=== PATIENT | female | born 1935 | race Caucasian/White ===

== ENCOUNTER → 2016-08-27 | Outpatient (CLI) | payer MEDICARE ==
--- NOTE | 2016-08-27 15:43 | US ---
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 EXAM MEASUREMENTS: Right Kidney: 10.3 x 4.9 x 4.9 cm Left Kidney: 10.0 x 4.3 x 5.9 cm Right Kidney: wnl Left Kidney: wnl Bladder: wnl Bilateral Jets seen: no There is no evidence for hydronephrosis at this point in time. No nephrolithiasis is seen. No jacqui s are identified. The urinary bladder is anechoic. Bilateral ureteral jets are seen. Cortical medullary differentiation is maintained. There may be a duplex collecting system on the righ t. IMPRESSION: No significant abnormalities evident.
== END | disposition home or self-care (01) ==
LOC: RADUSWWP 14:52
PROVIDERS: ATTEND Family Medicine
DX: N18.3 Chronic kidney disease, stage 3 (moderate) (principal); N28.9 Disorder of kidney and ureter, unspecified
CPT/HCPCS: 76770

== ENCOUNTER → 2016-12-11 | Outpatient (CLI) | payer MEDICARE ==
--- NOTE | 2016-12-11 16:16 | XR ---
EXAMINATION TYPE: XR abdomen 1V, 2 VIEWS DATE OF EXAM ORDERED: 12/11/2016 HISTORY: R10.9 abd pain. COMPARISON: Previous study dated 06/14/2016. FINDINGS: There has been a midline sternotomy. There is a large stool load. There is no evidence of bowel obstruction. There is no evidence of free air. There are phleboliths in the pelvis. There is a levoscoliosis in the lumbar region. There is ext ensive spondylosis deformans. IMPRESSION: 1. NO ACUTE INTRA-ABDOMINAL ABNORMALITY. 2. CONSTIPATION. 3. MODERATELY SEVERE DEGENERATIVE CHANGE WITHIN THE SPINE.
== END | disposition home or self-care (01) ==
LOC: RADXRMAIN 15:55
PROVIDERS: ATTEND Family Medicine
DX: K59.00 Constipation, unspecified (principal)
CPT/HCPCS: 74000

== ENCOUNTER → 2016-12-13 | Outpatient (CLI) | payer MEDICARE ==
--- NOTE | 2016-12-14 07:08 | XR ---
EXAMINATION TYPE: XR knee complete RT DATE OF EXAM: 12/13/2016 CLINICAL HISTORY: pain TECHNIQUE: Three views of the right knee are obtained. COMPARISON: None. FINDINGS: There is no acute fracture/dislocation. The tri-compartment joint spaces appear within no rmal limits. The overlying soft tissue appears unremarkable. IMPRESSION: There is no acute fracture or dislocation. ICD 10 NO FRACTURE, INITIAL EVALUATION
== END ==
LOC: RADXRMAIN 14:23
PROVIDERS: ATTEND Family Medicine
DX: M17.11 Unilateral primary osteoarthritis, right knee (principal)

== ENCOUNTER 2017-04-24 16:31 | Inpatient (IN) | payer MEDICARE ==
[2017-04-24] MEDS ORDERED: ONDANSETRON 4 MG/2 ML VIAL IVP STA (18:21)
[2017-04-24] MEDS ORDERED: RX INFO: IV CONTRAST WAS GIVEN 1 EACH MISC MISCELLANE PRN (18:21)
[2017-04-24] MEDS ORDERED: HYDROmorphone 1 MG/ML 1 ML SYRINGE IVP STA (18:21)
[2017-04-24] MEDS ORDERED: SODIUM CHLORIDE 0.9% 2,000 ML IV ONE (18:22)
[2017-04-24] MEDS ORDERED: ACETAMINOPHEN TAB 500 MG TAB PO STA (18:22)
--- NOTE | 2017-04-24 18:25 | ED ---
Abdominal Pain HPI <PaulJeramie - Last Filed: 04/24/17 20:42> - General Source: patient, family, RN notes reviewed, old records reviewed Mode of arrival: wheelchair Limitations: no limitations <Debra Campbellily - Last Filed: 04/24/17 23:13> - General Chief Complaint: Abdominal Pain Stated Complaint: Abd Pain Time Seen by Provider: 04/24/17 18:10 - History of Present Illness Initial Comments: Patient is an 82-year-old female presents emergency Department chief complaint of increased left lower quadrant abdominal pain. She reports that she's having a bout of her diverticulitis flare. She has her primary care provider stay was started on Cipro and Zofran. She reports that she has not been able to hold her medication down. She reports she is just feeling. All the pain is getting worse. She states that she feels very chilled and has a fever. She states that she's had diverticulosis diagnosis many times in the past year. Denies any previous history of abscesses. Surgical history includes lumpectomy, cholecystectomy. She recently had cataract removal surgery. (Tasneem Campbell) - Related Data Home Medications Medication Instructions Recorded Confirmed Donepezil [Aricept] 10 mg PO HS 06/14/16 04/24/17 Gabapentin 600 mg PO QID 06/14/16 04/24/17 Lisinopril [Prinivil] 10 mg PO QAM 06/14/16 04/24/17 Simvastatin [Zocor] 20 mg PO HS 06/14/16 04/24/17 ALPRAZolam [Xanax] 0.5 mg PO BID 04/24/17 04/24/17 Bromfenac Sodium [Prolensa Ophth 1 drop BOTH EYES DAILY 04/24/17 04/24/17 Soln] Ciprofloxacin HCl [Cipro] 500 mg PO BID 04/24/17 04/24/17 Diclofenac 0.1% Ophth Soln 1 drops RIGHT EYE QID 04/24/17 04/24/17 [Voltaren 0.1% Ophth Soln] Dicyclomine [Bentyl] 10 mg PO QID 04/24/17 04/24/17 Ondansetron Odt [Zofran Odt] 4 mg PO Q12HR PRN 04/24/17 04/24/17 Simethicone [Gas-X] 125 mg PO TID PRN 04/24/17 04/24/17 Tobramycin 0.3% Ophth Soln [Tobrex 1 drop BOTH EYES HS 04/24/17 04/24/17 0.3% Ophth Soln] amLODIPine BESYLATE [Norvasc] 10 mg PO DAILY 04/24/17 04/24/17 metFORMIN HCL [Glucophage] 500 mg PO DAILY 04/24/17 04/24/17 Allergies Allergy/AdvReac Type Severity Reaction Status Date / Time morphine Allergy Itching Verified 04/24/17 18:55 Sulfa (Sulfonamide Allergy Rash/Hives Verified 04/24/17 18:55 Antibiotics) Review of Systems ROS Other: All systems not noted in ROS Statement are negative. <Jeramie Miller - Last Filed: 04/24/17 20:42> ROS Other: All systems not noted in ROS Statement are negative. <Tasneem Campbell - Last Filed: 04/24/17 23:13> ROS Statement: Those systems with pertinent positive or pertinent negative responses have been documented in the HPI. Past Medical History Past Medical History: Hypertension Additional Past Medical History / Comment(s): diverticulitis History of Any Multi-Drug Resistant Organisms: None Reported Past Surgical History: Cholecystectomy Additional Past Surgical History / Comment(s): lumpectomy Past Psychological History: No Psychological Hx Reported Smoking Status: Former smoker Past Alcohol Use History: None Reported Past Drug Use History: None Reported <Tasneem Campbell - Last Filed: 04/24/17 23:13> General Exam <Jeramie Miller - Last Filed: 04/24/17 20:42> Limitations: no limitations General appearance: alert, in no apparent distress Head exam: Present: atraumatic, normocephalic, normal inspection Eye exam: Present: normal appearance, PERRL, EOMI. Absent: scleral icterus, conjunctival injection, periorbital swelling ENT exam: Present: normal exam, mucous membranes moist Neck exam: Present: normal inspection. Absent: tenderness, meningismus, lymphadenopathy Respiratory exam: Present: normal lung sounds bilaterally. Absent: respiratory distress, wheezes, rales, rhonchi, stridor Cardiovascular Exam: Present: regular rate, normal rhythm, normal heart sounds. Absent: systolic murmur, diastolic murmur, rubs, gallop, clicks GI/Abdominal exam: Present: soft, tenderness (Significant left lower quadrant tenderness.), normal bowel sounds. Absent: distended, guarding, rebound, rigid Extremities exam: Present: normal inspection, full ROM, normal capillary refill. Absent: tenderness, pedal edema, joint swelling, calf tenderness Back exam: Present: normal inspection Neurological exam: Present: alert, oriented X3, CN II-XII intact <Tasneem Campbell - Last Filed: 04/24/17 23:13> - General Exam Comments Initial Comments: This is an 82-year-old female. She does appear to be in some discomfort. ( Tasneem Campbell) Course <Jeramie Miller - Last Filed: 04/24/17 20:42> <Tasneem Campbell - Last Filed: 04/24/17 23:13> Vital Signs 04/24/17 04/24/17 04/24/17 16:42 18:49 20:20 Temperature 100.2 F H 98.2 F Pulse Rate 94 95 77 Respiratory 20 18 16 Rate Blood Pressure 152/65 169/77 140/63 O2 Sat by Pulse 99 94 L 94 L Oximetry 04/24/17 21:04 Temperature 97.5 F L Pulse Rate 85 Respiratory 20 Rate Blood Pressure 144/65 O2 Sat by Pulse 95 Oximetry - Reevaluation(s) Reevaluation #1: 04/24/17 20:40 Asians meet sepsis criteria with elevated white blood cell count fever, and location of infection with diverticulitis. This is completed at 1900. 04/24/17 20:40 Patient started on Levaquin. (Tasneem Campbell) Medical Decision Making - Lab Data Result diagrams: 04/24/17 18:35 04/24/17 18:35 <Jeramie Miller - Last Filed: 04/24/17 20:42> - Lab Data Result diagrams: 04/24/17 18:35 04/24/17 18:35 - Radiology Data Radiology results: report reviewed <Tasneem Campbell - Last Filed: 04/24/17 23:13> - Medical Decision Making Patient reevaluated by myself, Dr. Miller. Patient resting comfortably in bed. chart and results reviewed. Patient and family updated on results and plan. Case was discussed in detail with Dr. London, who will admit his patient. ( Jeramie Miller) 82-year-old female presents emergency Department chief complaint left lower quadrant pain and fever, she was started on Cipro for diverticulitis by her primary. She reports she's had worsening nausea and vomiting. She's not been able to hold down her medication. Patient has the emergency department with a low-grade fever 100.2. Patient is given IV fluids labwork obtained. Elevated white blood cell count of 18,000 with a left shift. Negative lactic acid. Blood cultures were obtained. CT on pelvis did show significant diverticulitis , no colonic abscess noted. Patient does meet sepsis criteria. Patient started on IV Levaquin and by mouth Flagyl. Patient will be admitted at this time. Discussed with Dr. Miller who will discuss with Dr. Osorio. (Tasneem Campbell) - Lab Data Lab Results 04/24/17 04/24/17 04/24/17 Range/Units 18:35 18:35 18:35 WBC 18.4 H (3.8-10.6) k/uL RBC 4.58 (3.80-5.40) m/uL Hgb 12.4 (11.4-16.0) gm/dL Hct 40.6 (34.0-46.0) % MCV 88.6 (80.0-100.0) fL MCH 27.1 (25.0-35.0) pg MCHC 30.6 L (31.0-37.0) g/dL RDW 16.5 H (11.5-15.5) % Plt Count 303 (150-450) k/uL Neutrophils % 84 % Lymphocytes % 8 % Monocytes % 7 % Eosinophils % 0 % Basophils % 0 % Neutrophils # 15.4 H (1.3-7.7) k/uL Lymphocytes # 1.5 (1.0-4.8) k/uL Monocytes # 1.2 H (0-1.0) k/uL Eosinophils # 0.0 (0-0.7) k/uL Basophils # 0.0 (0-0.2) k/uL Hypochromasia Slight Anisocytosis Slight Sodium 135 L (137-145) mmol/L Potassium 4.2 (3.5-5.1) mmol/L Chloride 101 (98-107) mmol/L Carbon Dioxide 24 (22-30) mmol/L Anion Gap 10 mmol/L BUN 13 (7-17) mg/dL Creatinine 0.70 (0.52-1.04) mg/dL Est GFR (MDRD) Af Amer >60 (>60 ml/min/1.73 sqM) Est GFR (MDRD) Non-Af >60 (>60 ml/min/1.73 sqM) Glucose 128 H (74-99) mg/dL Plasma Lactic Acid Hilario 0.8 (0.7-2.0) mmol/L Calcium 9.1 (8.4-10.2) mg/dL Total Bilirubin 0.4 (0.2-1.3) mg/dL AST 13 L (14-36) U/L ALT 30 (9-52) U/L Alkaline Phosphatase 73 (38-126) U/L Troponin I (0.000-0.034) ng/mL Total Protein 6.8 (6.3-8.2) g/dL Albumin 3.8 (3.5-5.0) g/dL Amylase 44 (30-110) U/L Lipase 41 (23-300) U/L Urine Color Urine Appearance (Clear) Urine pH (5.0-8.0) Ur Specific [place] (1.001-1.035) Urine Protein (Negative) Urine Glucose (UA) (Negative) Urine Ketones (Negative) Urine Blood (Negative) Urine Nitrite (Negative) Urine Bilirubin (Negative) Urine Urobilinogen (<2.0) mg/dL Ur Leukocyte Esterase (Negative) Urine RBC (0-5) /hpf Urine WBC (0-5) /hpf Ur Squamous Epith Cells (0-4) /hpf Urine Bacteria (None) /hpf Urine Mucus (None) /hpf 04/24/17 04/24/17 Range/Units 18:35 18:50 WBC (3.8-10.6) k/uL RBC (3.80-5.40) m/uL Hgb (11.4-16.0) gm/dL Hct (34.0-46.0) % MCV (80.0-100.0) fL MCH (25.0-35.0) pg MCHC (31.0-37.0) g/dL RDW (11.5-15.5) % Plt Count (150-450) k/uL Neutrophils % % Lymphocytes % % Monocytes % % Eosinophils % % Basophils % % Neutrophils # (1.3-7.7) k/uL Lymphocytes # (1.0-4.8) k/uL Monocytes # (0-1.0) k/uL Eosinophils # (0-0.7) k/uL Basophils # (0-0.2) k/uL Hypochromasia Anisocytosis Sodium (137-145) mmol/L Potassium (3.5-5.1) mmol/L Chloride (98-107) mmol/L Carbon Dioxide (22-30) mmol/L Anion Gap mmol/L BUN (7-17) mg/dL Creatinine (0.52-1.04) mg/dL Est GFR (MDRD) Af Amer (>60 ml/min/1.73 sqM) Est GFR (MDRD) Non-Af (>60 ml/min/1.73 sqM) Glucose (74-99) mg/dL Plasma Lactic Acid Hilario (0.7-2.0) mmol/L Calcium (8.4-10.2) mg/dL Total Bilirubin (0.2-1.3) mg/dL AST (14-36) U/L ALT (9-52) U/L Alkaline Phosphatase (38-126) U/L Troponin I <0.012 (0.000-0.034) ng/mL Total Protein (6.3-8.2) g/dL Albumin (3.5-5.0) g/dL Amylase (30-110) U/L Lipase (23-300) U/L Urine Color Yellow Urine Appearance Clear (Clear) Urine pH 6.0 (5.0-8.0) Ur Specific [place] 1.020 (1.001-1.035) Urine Protein 1+ H (Negative) Urine Glucose (UA) Trace H (Negative) Urine Ketones 2+ H (Negative) Urine Blood Small H (Negative) Urine Nitrite Negative (Negative) Urine Bilirubin Negative (Negative) Urine Urobilinogen 2.0 (<2.0) mg/dL Ur Leukocyte Esterase Small H (Negative) Urine RBC 5 (0-5) /hpf Urine WBC 4 (0-5) /hpf Ur Squamous Epith Cells 4 (0-4) /hpf Urine Bacteria Rare H (None) /hpf Urine Mucus Rare H (None) /hpf 04/24/17 18:26 EKG shows normal sinus rhythm. Minimal voltage criteria for LVH. Nonspecific T -wave abnormality. Ventricular rate 95 bpm. [place] interval 9180 ms. QRS duration 74 ms. QT QTc is 360/397 ms. No evidence of ST elevation. (Tasneem Campbell) - Radiology Data CT shows evidence of diverticulitis, no focal abscess noted. Evidence of a hiatal hernia as well. (Tasneem Campbell) Disposition <Jeramie Miller - Last Filed: 04/24/17 20:42> Time of Disposition: 20:47 <Tasneem Campbell - Last Filed: 04/24/17 23:13> Clinical Impression: Sepsis, Diverticulitis Disposition: ADMITTED IP TO THIS HOSP Condition: Stable
[2017-04-24 18:47] LABS: Anisocytosis Slight; Basophils % (A) 0 %; CH 27.5; CHCM 31.1; Eosinophils % (A) 0 %; HCT 40.6 % (34.0-46.0); HDW 2.67; HGB 12.4 gm/dL (11.4-16.0); Hypochromasia Slight; Luc % (Auto) 1; Lymphocytes # (A) 1.5 k/uL (1.0-4.8); Lymphocytes % (A) 8 %; MCH 27.1 pg (25.0-35.0); MCHC 30.6 g/dL (31.0-37.0); MCV 88.6 fL (80.0-100.0); Monocytes # (A) 1.2 k/uL (0-1.0); Monocytes % (A) 7 %; Neutrophils # (A) 15.4 k/uL (1.3-7.7); Neutrophils % (A) 84 %; RBC 4.58 m/uL (3.80-5.40); RDW 16.5 % (11.5-15.5); WBC 18.4 k/uL (3.8-10.6); WBC (Perox) 18.26
[2017-04-24] MEDS ORDERED: LEVOFLOXACIN 750MG-D5W PMX 750 MG in DEXTROSE/WATER 1 150ML.BAG IVPB STA (18:56)
[2017-04-24 18:57] LABS: Appearance,Urine Clear (Clear); Bacteria,Urine Rare /hpf; Bilirubin,Urine Negative (Negative); Glucose,Urine (UA) Trace (Negative); Ketones,Urine 2+ (Negative); Leukocyte Esterase,Urine Small (Negative); Mucus,Urine Rare /hpf; Nitrite,Urine Negative (Negative); Particle Count 4159; Protein,Urine 1+ (Negative); RBC,Urine 5 /hpf (0-5); Squamous Epithelial Cell,Urine 4 /hpf (0-4); UA Billing (MACRO vs. MICRO) MICRO; WBC,Urine 4 /hpf (0-5)
[2017-04-24 19:00] LABS: ALT 30 U/L (9-52); AST 13 U/L (14-36); Alkaline Phosphatase 73 U/L (38-126); Amylase 44 U/L (30-110); Anion Gap 10 mmol/L; Blood Urea Nitrogen 13 mg/dL (7-17); Calcium 9.1 mg/dL (8.4-10.2); Carbon Dioxide 24 mmol/L (22-30); Chloride 101 mmol/L (98-107); Glucose 128 mg/dL (74-99); Non-African American GFR(MDRD) >60 (>60 ml/min/1.73 sqM); Potassium 4.2 mmol/L (3.5-5.1); Sodium 135 mmol/L (137-145); Total Bilirubin 0.4 mg/dL (0.2-1.3); Total Protein 6.8 g/dL (6.3-8.2)
--- NOTE | 2017-04-24 20:18 | CT ---
EXAMINATION TYPE: CT abdomen pelvis w con DATE OF EXAM: 04/24/2017 COMPARISON: NONE HISTORY: LLQ pain with nausea and fever. CT DLP: 1475.2 mGycm Automated exposure control for dose reduction was used. TECHNIQUE: Helical acquisition of images was performed from the lung bases through the pelvis. CONTRAST: Performed without Oral Contrast and with IV Contrast, patient injected with 100 mL of Omnipaque 300. FINDINGS: Lung bases are clear of consolidation. There is no pleural effusion. There is metal hernia. There are clips from cholecystectomy. Bile ducts are not dilated. Spleen and pancreas appear normal. There is no adrenal mass. Kidneys show satisfactory contrast opacification. There is no hydronephrosi s. There is no retroperitoneal adenopathy. There is umbilical hernia that contains fat. There is no ascites. There are numerous diverticula in the sigmoid colon. There is mild fat stranding around the lower descending colon. I see no abscess. There are numerous diverticula in the transvers e colon in the left colon. Appendix is not seen. There is no sign of appendicitis. There are spondylo tic changes throughout the lumbar spine. There is moderate spinal stenosis at L3-4 and L4-5. IMPRESSION: INFLAMMATORY CHANGES AROUND THE LOWER DESCENDING COLON CONSISTENT WITH MILD DIVERTICULITIS. EXTENSIVE COLONIC DIVERTICULOSIS. SPINAL STENOSIS IS PRESENT AT L3-4 L4-5. HIATAL HERNIA.
[2017-04-24] MEDS ORDERED: HYDROmorphone 1 MG/ML 1 ML SYRINGE IVP PRN (20:47)
[2017-04-24] MEDS ORDERED: BISACODYL 5 MG TABLET.DR PO PRN (20:47)
[2017-04-24] MEDS ORDERED: NALOXONE 0.4 MG/ML 1 ML VIAL IV PRN (20:47)
[2017-04-24] MEDS ORDERED: IBUPROFEN 400 MG TAB PO PRN (20:47)
[2017-04-24] MEDS ORDERED: ACETAMINOPHEN TAB 325 MG TAB PO PRN (20:47)
[2017-04-24] MEDS ORDERED: ALPRAZolam 0.25 MG TAB PO PRN (20:49)
[2017-04-24] MEDS ORDERED: ONDANSETRON ODT 4 MG TAB PO PRN (20:49)
[2017-04-24] MEDS ORDERED: SIMETHICONE 80 MG CHEWABLE PO PRN (20:49)
[2017-04-24] MEDS ORDERED: metroNIDAZOLE 500 MG TAB PO STA (20:50)
[2017-04-24] MEDS ORDERED: PREGABALIN 50 MG CAP PO SCH (21:00)
[2017-04-24] MEDS ORDERED: CIPROFLOXACIN HCL 500 MG TAB PO SCH (21:00)
[2017-04-24] MEDS ORDERED: GABAPENTIN 1200 MG PO SCH (21:00)
[2017-04-24] MEDS: TOBRAMYCIN 0.3% OPHTH DROPS 5 ML BTL BOTH EYES SCH (21:43)
[2017-04-24] MEDS: DICLOFENAC 0.1% OPHTH SOLN 2.5 ML BTL RIGHT EYE SCH (21:43)
[2017-04-24] MEDS: ATORVASTATIN 10 MG TAB PO SCH (21:43)
[2017-04-24] MEDS: DICYCLOMINE 10 MG CAP PO SCH (21:43)
[2017-04-24] MEDS: DONEPEZIL 10 MG TAB PO SCH (21:43)
[2017-04-24] MEDS: SODIUM CHLORIDE 0.9% 1,000 ML IV SCH (23:08)
[2017-04-24] MEDS: ONDANSETRON 4 MG/2 ML VIAL IVP PRN (23:52)
[2017-04-25] MEDS: SODIUM CHLORIDE 0.9% 1,000 ML IV SCH ×2 (05:37→14:45)
[2017-04-25] MEDS: ONDANSETRON 4 MG/2 ML VIAL IVP PRN ×3 (07:27→22:09)
[2017-04-25 07:51] LABS: Glucose,Whole Blood 128 mg/dL (75-99)
[2017-04-25] MEDS: DICLOFENAC 0.1% OPHTH SOLN 2.5 ML BTL RIGHT EYE SCH (08:33)
[2017-04-25] MEDS: ALPRAZolam 0.5 MG TAB PO SCH ×2 (08:33→21:57)
[2017-04-25] MEDS: LISINOPRIL 10 MG TAB PO SCH (08:33)
[2017-04-25] MEDS: PANTOPRAZOLE 40 MG/10 ML VIAL IV SCH (08:33)
[2017-04-25] MEDS: amLODIPine 10 MG TAB PO SCH (08:33)
[2017-04-25] MEDS: KETOROLAC 0.5% OPHTH DROPS 5 ML BTL BOTH EYES SCH ×4 (08:33→21:53)
[2017-04-25] MEDS: DICYCLOMINE 10 MG CAP PO SCH ×4 (08:33→21:54)
[2017-04-25 12:05] LABS: Glucose,Whole Blood 149 mg/dL (75-99)
[2017-04-25 17:05] LABS: Glucose,Whole Blood 108 mg/dL (75-99)
[2017-04-25] MEDS: HYDROmorphone 1 MG/ML 1 ML SYRINGE IVP PRN ×2 (18:53→22:15)
--- NOTE | 2017-04-25 19:54 | HP ---
HISTORY AND PHYSICAL CHIEF COMPLAINT: An 82-year-old white female who presents with increased left lower quadrant abdominal pain. CT scan of the abdomen was read in the emergency room, which showed diverticulitis and extensive diverticulosis. Surgical consult with Dr. Guzman is pending. She was in the hospital for this about a month or 2 ago. She was unable to keep any medicines or food down. She has progressive nausea and vomiting, failed outpatient treatment. SURGICAL HISTORY: She has had a lumpectomy, cholecystectomy,cataract surgery removal. HOME MEDICINES: Include: 1. Aricept for dementia. 2. Gabapentin for neuropathy. 3. Prinivil for hypertension 10 mg daily. 4. Zocor 20 mg daily for hypercholesterolemia. 5. Xanax 0.5 mg b.i.d. for anxiety. 6. Ciprofloxacin 500 mg p.o. b.i.d. which was started for possible bowel infection a few days before. 7. She has Prolensa 1 drop both eyes daily. 8. Voltaren ophthalmologic drops right eye q.i.d. 9. Bentyl 10 mg q.i.d. 10.Norvasc 10 mg daily. 11.Metformin 500 mg daily. ALLERGIES: TO MORPHINE AND SULFA. Fourteen-point review of systems except for mentioned in HPI is negative. PAST MEDICAL HISTORY: As mentioned above; diverticulitis, diverticulosis, hypertension, dyslipidemia, irritable bowel syndrome, diabetes mellitus, hypertension. SURGICAL HISTORY: Cholecystectomy, and lumpectomy as mentioned above. She is a former smoker. PHYSICAL EXAM: She is a white female who appears nauseated with an emesis bucket in her hand. BMI is over 40. HEENT: Normocephalic, atraumatic. Ophthalmologic: Pupils equal, round, react to light and accommodation. NECK: Supple. Normal bowel sounds. RESPIRATORY: Wheezes, rales, rhonchi or stridor were all negative. CARDIAC: Regular rate and rhythm. ABDOMEN: Tender to palpation, left lower quadrant. Mild guarding. Normal bowel sounds. Negative McBurney sign. EXTREMITIES: Normal to inspection. Full range of motion. BACK: Normal to inspection. NEUROLOGIC: Alert and oriented x3. T-max is 100.2, blood pressure is 140s to 160s over 60s to 70s. Respiratory rate 16 to 20, pulse is 97/95. CT scan was reviewed. ASSESSMENT: 1. Acute diverticulitis. 2. Leukocytosis secondary to diverticulitis. 3. Acute abdominal pain secondary to diverticulitis. 4. Minimal hyponatremia. 5. Suspect sepsis secondary to diverticulitis. She was started on Flagyl and IV Levaquin, which will continue with surgical and GI consultation. Monitor electrolytes. Amylase and lipase are negative for pancreatitis. EKG shows sinus rhythm, no ischemia. Continue current treatment. Please see further orders in the chart. MMODL / IJN: [id number] /
[2017-04-25 21:33] LABS: Glucose,Whole Blood 104 mg/dL (75-99)
[2017-04-25] MEDS: LEVOFLOXACIN 750MG-D5W PMX 750 MG in DEXTROSE/WATER 1 150ML.BAG IVPB SCH (21:51)
[2017-04-25] MEDS: GABAPENTIN 300 MG CAP PO SCH (21:52)
[2017-04-25] MEDS: TOBRAMYCIN 0.3% OPHTH DROPS 5 ML BTL BOTH EYES SCH (21:53)
[2017-04-25] MEDS: DONEPEZIL 10 MG TAB PO SCH (21:54)
[2017-04-25] MEDS: ATORVASTATIN 10 MG TAB PO SCH (21:54)
[2017-04-26] MEDS: SODIUM CHLORIDE 0.9% 1,000 ML IV SCH ×3 (01:31→16:36)
[2017-04-26 07:57] LABS: Glucose,Whole Blood 88 mg/dL (75-99)
[2017-04-26 08:32] LABS: Anisocytosis Slight; Basophils % (A) 0 %; CH 27.1; CHCM 30.2; Eosinophils # (A) 0.1 k/uL (0-0.7); Eosinophils % (A) 1 %; HCT 35.3 % (34.0-46.0); HDW 2.66; HGB 10.6 gm/dL (11.4-16.0); Hypochromasia Marked; Luc % (Auto) 2; Lymphocytes # (A) 1.7 k/uL (1.0-4.8); Lymphocytes % (A) 18 %; MCHC 29.9 g/dL (31.0-37.0); MCV 90.1 fL (80.0-100.0); Mean Platelet Volume 6.7; Monocytes # (A) 0.7 k/uL (0-1.0); Monocytes % (A) 7 %; Neutrophils # (A) 6.8 k/uL (1.3-7.7); Neutrophils % (A) 71 %; RBC 3.92 m/uL (3.80-5.40); RDW 16.4 % (11.5-15.5); WBC 9.5 k/uL (3.8-10.6); WBC (Perox) 10.09
[2017-04-26 08:44] LABS: ALT 30 U/L (9-52); AST 13 U/L (14-36); Alkaline Phosphatase 54 U/L (38-126); Anion Gap 7 mmol/L; Blood Urea Nitrogen 10 mg/dL (7-17); Calcium 8.4 mg/dL (8.4-10.2); Carbon Dioxide 23 mmol/L (22-30); Chloride 109 mmol/L (98-107); Glucose 91 mg/dL (74-99); Non-African American GFR(MDRD) >60 (>60 ml/min/1.73 sqM); Potassium 3.8 mmol/L (3.5-5.1); Sodium 139 mmol/L (137-145); Total Bilirubin <0.1 mg/dL (0.2-1.3); Total Protein 5.6 g/dL (6.3-8.2)
[2017-04-26] MEDS: ALPRAZolam 0.5 MG TAB PO SCH ×2 (09:11→21:23)
[2017-04-26] MEDS: GABAPENTIN 300 MG CAP PO SCH ×4 (09:11→21:19)
[2017-04-26] MEDS: amLODIPine 10 MG TAB PO SCH (09:12)
[2017-04-26] MEDS: DICYCLOMINE 10 MG CAP PO SCH ×4 (09:12→21:19)
[2017-04-26] MEDS: LISINOPRIL 10 MG TAB PO SCH (09:12)
[2017-04-26] MEDS: PANTOPRAZOLE 40 MG/10 ML VIAL IV SCH (09:12)
[2017-04-26] MEDS: KETOROLAC 0.5% OPHTH DROPS 5 ML BTL BOTH EYES SCH ×4 (09:12→21:20)
[2017-04-26] MEDS: DICLOFENAC 0.1% OPHTH SOLN 2.5 ML BTL BOTH EYES SCH (09:12)
[2017-04-26 12:31] LABS: Glucose,Whole Blood 101 mg/dL (75-99)
--- NOTE | 2017-04-26 12:59 | P.CONS ---
History of Present Illness - Reason for Consult Consult date: 04/26/17 diverticulitis Requesting physician: Chris London - History of Present Illness 82-year-old female with a history of colonic diverticulosis recurrent diverticulitis admitted with acute left lower quadrant abdominal pain 1 week. Patient was constipated prior to the onset of abdominal pain last week. She is now passing loose nonbloody bowel movements. Reports fever at home but no chills hematemesis hematochezia melena. Recent diverticulitis flareup in January 2017. Last colonoscopy to her memory several years ago unsure who performed but remembers diverticulosis however the exam was incomplete secondary to "twisted bowel, did not want to go any further for fear of perforating bowel". White count 18.4 presently 9.5. Hemoglobin 10.6. Afebrile. T-max 100.2. CT abdomen and pelvis reported inflammatory changes on the lower descending colon consistent with mild diverticulitis and extensive colonic diverticulosis without abscess or free air. Review of Systems Constitutional: Denies fever, chills, sweats, weight gain, or loss. HEENT: Negative for migraines, blurred vision or loss, earaches, drainage, tinnitus, oral mucosal lesions, dysphagia, or odynophagia. CARDIAC: Hypertension Negative for chest pain, arrhythmias, or palpitation. RESPIRATORY: Negative for shortness of breath, hemoptysis, cough, or sputum production. GI: See HPI for pertinent findings. : Negative for hematuria, urgency, frequency, polyuria, or dysuria. GYNc: Denies possibility of . Negative vaginal discharge. MUSCULOSKELETAL: Negative for muscle aches, swelling, arthritis, and arthralgias. NEUROLOGIC: Negative for stroke or TIA. ENDOCRINE: Negative for thyroid problems. SKIN: Negative for rash or itching. PSYCHIATRIC: Negative history for depression and anxiety All systems: negative (See HPI) Past Medical History Past Medical History: Hypertension Additional Past Medical History / Comment(s): diverticulitis History of Any Multi-Drug Resistant Organisms: None Reported Past Surgical History: Cholecystectomy Additional Past Surgical History / Comment(s): lumpectomy Past Anesthesia/Blood Transfusion Reactions: No Reported Reaction Past Psychological History: No Psychological Hx Reported Smoking Status: Former smoker Past Alcohol Use History: None Reported Past Drug Use History: None Reported - Past Family History Father Family Medical History: Congestive Heart Failure (CHF), COPD Medications and Allergies Home Medications Medication Instructions Recorded Confirmed Type Donepezil [Aricept] 10 mg PO HS 06/14/16 04/24/17 History Gabapentin 600 mg PO QID 06/14/16 04/24/17 History Lisinopril [Prinivil] 10 mg PO QAM 06/14/16 04/24/17 History Simvastatin [Zocor] 20 mg PO HS 06/14/16 04/24/17 History ALPRAZolam [Xanax] 0.5 mg PO BID 04/24/17 04/24/17 History Bromfenac Sodium [Prolensa Ophth 1 drop BOTH EYES DAILY 04/24/17 04/24/17 History Soln] Ciprofloxacin HCl [Cipro] 500 mg PO BID 04/24/17 04/24/17 History Diclofenac 0.1% Ophth Soln 1 drops RIGHT EYE QID 04/24/17 04/24/17 History [Voltaren 0.1% Ophth Soln] Dicyclomine [Bentyl] 10 mg PO QID 04/24/17 04/24/17 History Ondansetron Odt [Zofran Odt] 4 mg PO Q12HR PRN 04/24/17 04/24/17 History Simethicone [Gas-X] 125 mg PO TID PRN 04/24/17 04/24/17 History Tobramycin 0.3% Ophth Soln [Tobrex 1 drop BOTH EYES HS 04/24/17 04/24/17 History 0.3% Ophth Soln] amLODIPine BESYLATE [Norvasc] 10 mg PO DAILY 04/24/17 04/24/17 History metFORMIN HCL [Glucophage] 500 mg PO DAILY 04/24/17 04/24/17 History Allergies Allergy/AdvReac Type Severity Reaction Status Date / Time morphine Allergy Itching Verified 04/24/17 18:55 Sulfa (Sulfonamide Allergy Rash/Hives Verified 04/24/17 18:55 Antibiotics) Physical Exam Vitals: Vital Signs Temp Pulse Resp BP BP Pulse Ox 04/26/17 07:00 97.1 F L 78 20 152/70 96 04/25/17 23:55 98.3 F 70 20 118/62 94 L 04/25/17 14:47 98.6 F 88 16 138/71 95 Intake and Output 04/25/17 04/26/17 04/26/17 22:59 06:59 14:59 Intake Total 0 100 240 Balance 0 100 240 Intake: Oral 0 100 240 Other: Voiding Method Toilet Toilet Bedside Commode Bedside Commode # Voids 1 1 # Bowel Movements 0 0 General appearance: The patient is alert, oriented, in no acute distress. HET: Head is normocephalic and atraumatic. Pupils are equal and reactive. Oropharynx is clear without lesions. Neck: Supple without lymphadenopathy. Trachea midline. Heart: S1 S2. Regular rate and rhythm. Lungs: No crackles or wheezes are heard. Abdomen: Soft, mild left lower quadrant tenderness, nondistended with bowel sounds. No peritoneal signs. No palpable organomegaly or masses. Extremities: Normal skin color and turgor. No cyanosis, rash, ulceration, clubbing, or edema. Radial and pedal pulses are 2/4 bilaterally. Neurological: No focal deficits. Strength and sensation are grossly intact. Results CBC & Chem 7: 04/26/17 07:51 04/26/17 07:51 Labs: Abnormal Lab Results - Last 24 Hours (Table) 04/25/17 04/25/17 04/26/17 Range/Units 16:56 21:26 07:51 Hgb 10.6 L (11.4-16.0) gm/dL MCHC 29.9 L (31.0-37.0) g/dL RDW 16.4 H (11.5-15.5) % Chloride (98-107) mmol/L POC Glucose (mg/dL) 108 H 104 H (75-99) mg/dL Total Bilirubin (0.2-1.3) mg/dL AST (14-36) U/L Total Protein (6.3-8.2) g/dL Albumin (3.5-5.0) g/dL 04/26/17 04/26/17 Range/Units 07:51 11:48 Hgb (11.4-16.0) gm/dL MCHC (31.0-37.0) g/dL RDW (11.5-15.5) % Chloride 109 H (98-107) mmol/L POC Glucose (mg/dL) 101 H (75-99) mg/dL Total Bilirubin <0.1 L (0.2-1.3) mg/dL AST 13 L (14-36) U/L Total Protein 5.6 L (6.3-8.2) g/dL Albumin 2.9 L (3.5-5.0) g/dL Microbiology - Last 24 Hours (Table) 04/24/17 18:35 Blood Culture - Preliminary Blood No Growth after [address] scan - abdomen: report reviewed (Dr. Quintana) Assessment and Plan (1) Diverticulitis Narrative/Plan: Leukocytosis and reported fever secondary to descending colon diverticulitis. Cannot exclude superimposed infectious colitis. Current Visit: Yes Status: Acute Code(s): K57.92 - DVTRCLI OF INTEST, PART UNSP, W/O PERF OR ABSCESS W/O BLEED SNOMED Code(s): 841597433 (2) Diverticulosis of colon Narrative/Plan: Moderate to severe incomplete colonoscopy several years ago. Current Visit: Yes Status: Acute Code(s): K57.30 - DVRTCLOS OF LG INT W/O PERFORATION OR ABSCESS W/O BLEEDING SNOMED Code(s): 224203539 Plan: 1. Levaquin Flagyl. Clear liquid diet advance as tolerated. 2. Outpatient colonoscopy recommended in 3-4 weeks. 3. Will follow with you. 4. Avoid constipation. 5. Clostridium difficile testing rule out superimposed infectious colitis. Thank you for this kind referral and the opportunity to participate in the care of your patient. This consultation was discussed with Dr. Quintana. The impression and plan of care have been directed as dictated.
[2017-04-26 13:30] VITALS: BMI 33.1
--- NOTE | 2017-04-26 14:28 | P.GSCN ---
History of Present Illness Consult date: 04/26/17 Reason for Consult: Lower left quadrant abdominal pain History of present illness: 82-year-old female seen by surgical service at the request of the attending in a patient who developed left lower quadrant abdominal pain onset several weeks prior more symptomatic. CAT scan of the abdomen and pelvis obtained in the emergency room did show mild diverticulitis with extensive diverticulosis. Patient states it's been several years but she did have a colonoscopy done does not remember who did the colonoscopy or where was done states that she was told they could not complete the exam because the scope could not be passed through Patient states she has been having loose stools there's been no blood noted in the stool. Patient states at home she felt feverish but did not actually take her temperature. Patient stated that she has a history of diverticulitis the last flareup was in January 2017 temp in the emergency room was 100.2 the current temp is 97.1 the white count in the emergency room was 18.5 this morning white count 9 Review of Systems essentially unremarkable except as mentioned in the present illness Past Medical History Past Medical History: Hypertension Additional Past Medical History / Comment(s): diverticulitis History of Any Multi-Drug Resistant Organisms: None Reported Past Surgical History: Cholecystectomy Additional Past Surgical History / Comment(s): lumpectomy Past Anesthesia/Blood Transfusion Reactions: No Reported Reaction Past Psychological History: No Psychological Hx Reported Smoking Status: Former smoker Past Alcohol Use History: None Reported Past Drug Use History: None Reported - Past Family History Father Family Medical History: Congestive Heart Failure (CHF), COPD Medications and Allergies Home Medications Medication Instructions Recorded Confirmed Type Donepezil [Aricept] 10 mg PO HS 06/14/16 04/24/17 History Gabapentin 600 mg PO QID 06/14/16 04/24/17 History Lisinopril [Prinivil] 10 mg PO QAM 06/14/16 04/24/17 History Simvastatin [Zocor] 20 mg PO HS 06/14/16 04/24/17 History ALPRAZolam [Xanax] 0.5 mg PO BID 04/24/17 04/24/17 History Bromfenac Sodium [Prolensa Ophth 1 drop BOTH EYES DAILY 04/24/17 04/24/17 History Soln] Ciprofloxacin HCl [Cipro] 500 mg PO BID 04/24/17 04/24/17 History Diclofenac 0.1% Ophth Soln 1 drops RIGHT EYE QID 04/24/17 04/24/17 History [Voltaren 0.1% Ophth Soln] Dicyclomine [Bentyl] 10 mg PO QID 04/24/17 04/24/17 History Ondansetron Odt [Zofran Odt] 4 mg PO Q12HR PRN 04/24/17 04/24/17 History Simethicone [Gas-X] 125 mg PO TID PRN 04/24/17 04/24/17 History Tobramycin 0.3% Ophth Soln [Tobrex 1 drop BOTH EYES HS 04/24/17 04/24/17 History 0.3% Ophth Soln] amLODIPine BESYLATE [Norvasc] 10 mg PO DAILY 04/24/17 04/24/17 History metFORMIN HCL [Glucophage] 500 mg PO DAILY 04/24/17 04/24/17 History Allergies Allergy/AdvReac Type Severity Reaction Status Date / Time morphine Allergy Itching Verified 04/24/17 18:55 Sulfa (Sulfonamide Allergy Rash/Hives Verified 04/24/17 18:55 Antibiotics) Surgical - Exam Vital Signs Temp Pulse Resp BP Pulse Ox 100.2 F H 94 20 152/65 99 04/24/17 16:42 04/24/17 16:42 04/24/17 16:42 04/24/17 16:42 04/24/17 16:42 GENERAL APPEARANCE: 82-year-old female patient is alert, oriented, in no acute distress. Sitting up taking a diet clear liquid VITAL SIGNS: Reviewed HEENT: Head is normocephalic and atraumatic. Pupils are equal and reactive. The nares are patent. Oropharynx is clear without lesions. NECK: Supple without lymphadenopathy. Traches midline. HEART: S1, S2. Regular rate and rhythm. No murmur noted LUNGS: No crackles or wheezes are heard. Adequate air movement bilaterally on room air sats 94% ABDOMEN: Soft, mild tenderness left lower quadrant nondistended with good bowel sounds. No peritoneal signs. No palpable organomegaly or masses. Reports no nausea vomiting tolerating liquids states no stool no difficulty in urinating EXTREMITIES: Normal skin color and turgor. No cyanosis, rash, ulceration, clubbing or edema. Radial pedal pulses are 2/4 bilaterally. NEUROLOGICAL: No focal deficits. Strength and sensation are grossly intact. Results - Labs 04/26/17 07:51 04/26/17 07:51 Abnormal Lab Results - Last 24 Hours (Table) 04/25/17 04/25/17 04/26/17 Range/Units 16:56 21:26 07:51 Hgb 10.6 L (11.4-16.0) gm/dL MCHC 29.9 L (31.0-37.0) g/dL RDW 16.4 H (11.5-15.5) % Chloride (98-107) mmol/L POC Glucose (mg/dL) 108 H 104 H (75-99) mg/dL Total Bilirubin (0.2-1.3) mg/dL AST (14-36) U/L Total Protein (6.3-8.2) g/dL Albumin (3.5-5.0) g/dL 04/26/17 04/26/17 Range/Units 07:51 11:48 Hgb (11.4-16.0) gm/dL MCHC (31.0-37.0) g/dL RDW (11.5-15.5) % Chloride 109 H (98-107) mmol/L POC Glucose (mg/dL) 101 H (75-99) mg/dL Total Bilirubin <0.1 L (0.2-1.3) mg/dL AST 13 L (14-36) U/L Total Protein 5.6 L (6.3-8.2) g/dL Albumin 2.9 L (3.5-5.0) g/dL Microbiology - Last 24 Hours (Table) 04/24/17 18:35 Blood Culture - Preliminary Blood No Growth after 24 hours Diabetes panel 04/24/17 04/26/17 Range/Units 18:35 07:51 Sodium 139 (137-145) mmol/L Potassium 3.8 (3.5-5.1) mmol/L Chloride 109 H (98-107) mmol/L Carbon Dioxide 23 (22-30) mmol/L BUN 10 (7-17) mg/dL Creatinine 0.76 (0.52-1.04) mg/dL Glucose 91 (74-99) mg/dL Hemoglobin A1c 5.9 (4.0-6.0) % Calcium 8.4 (8.4-10.2) mg/dL AST 13 L (14-36) U/L ALT 30 (9-52) U/L Alkaline Phosphatase 54 (38-126) U/L Total Protein 5.6 L (6.3-8.2) g/dL Albumin 2.9 L (3.5-5.0) g/dL Calcium panel 04/26/17 Range/Units 07:51 Calcium 8.4 (8.4-10.2) mg/dL Albumin 2.9 L (3.5-5.0) g/dL Pituitary panel 04/26/17 Range/Units 07:51 Sodium 139 (137-145) mmol/L Potassium 3.8 (3.5-5.1) mmol/L Chloride 109 H (98-107) mmol/L Carbon Dioxide 23 (22-30) mmol/L BUN 10 (7-17) mg/dL Creatinine 0.76 (0.52-1.04) mg/dL Glucose 91 (74-99) mg/dL Calcium 8.4 (8.4-10.2) mg/dL Adrenal panel 04/26/17 Range/Units 07:51 Sodium 139 (137-145) mmol/L Potassium 3.8 (3.5-5.1) mmol/L Chloride 109 H (98-107) mmol/L Carbon Dioxide 23 (22-30) mmol/L BUN 10 (7-17) mg/dL Creatinine 0.76 (0.52-1.04) mg/dL Glucose 91 (74-99) mg/dL Calcium 8.4 (8.4-10.2) mg/dL Total Bilirubin <0.1 L (0.2-1.3) mg/dL AST 13 L (14-36) U/L ALT 30 (9-52) U/L Alkaline Phosphatase 54 (38-126) U/L Total Protein 5.6 L (6.3-8.2) g/dL Albumin 2.9 L (3.5-5.0) g/dL Assessment and Plan Assessment: Impression Present on admission febrile & leukocytosis suspect due to mild diverticulitis as evident on a CAT scan abdomen and pelvis Reoccurring episodes of diverticulitis CAT scan abdomen and pelvis mild diverticulitis descending colon Plan Would benefit from an outpatient colonoscopy and 3-4 weeks Continue IV Levaquin and by mouth flagyl as ordered DVT and GI prophylaxis IV fluid for hydration Pain control Advance diet as tolerated check stool for C. diff No evidence of an acute surgical abdomen at this time Further surgical recommendations will follow with you The above impression and plan of care have been discussed and directed by signing physician. Lori Wilkins nurse practitioner acting as scribe for signing physician.
[2017-04-26] MEDS: metroNIDAZOLE 500 MG TAB PO SCH ×2 (16:35→21:19)
[2017-04-26 17:36] LABS: Glucose,Whole Blood 88 mg/dL (75-99)
[2017-04-26] MEDS: LEVOFLOXACIN 750MG-D5W PMX 750 MG in DEXTROSE/WATER 1 150ML.BAG IVPB SCH (20:23)
[2017-04-26] MEDS: HYDROmorphone 1 MG/ML 1 ML SYRINGE IVP PRN (20:24)
[2017-04-26 21:08] LABS: Glucose,Whole Blood 106 mg/dL (75-99)
[2017-04-26] MEDS: FAMOTIDINE 20 MG TAB PO SCH (21:18)
[2017-04-26] MEDS: DONEPEZIL 10 MG TAB PO SCH (21:19)
[2017-04-26] MEDS: TOBRAMYCIN 0.3% OPHTH DROPS 5 ML BTL BOTH EYES SCH (21:19)
[2017-04-26] MEDS: ATORVASTATIN 10 MG TAB PO SCH (21:19)
--- NOTE | 2017-04-26 21:51 | PN ---
PROGRESS NOTE An 82-year-old white female admitted with severe diverticulosis, diverticulitis and sepsis. Remains on IV Levaquin, clear liquid diet. Her nausea and vomiting has improved since yesterday. Await surgical consultation for possible colectomy. GI recommends colonoscopy as an outpatient. She still remains on clear liquid diet. VITAL SIGNS: Stable, afebrile. CARDIOVASCULAR: S1, S2. LUNGS: Clear. GI: Soft. Slightly increased bowel sounds. HEMATOLOGY: Negative Homans'. ASSESSMENT: 1. Acute diverticulosis. 2. Acute diverticulitis. 3. Sepsis secondary to diverticulitis. 4. Colonoscopy, possible colectomy. Await surgical and Gastroenterology consultation. MMODL / IJN: [id number] /
[2017-04-27] MEDS: SODIUM CHLORIDE 0.9% 1,000 ML IV SCH ×3 (00:19→14:22)
[2017-04-27 07:26] LABS: Glucose,Whole Blood 105 mg/dL (75-99)
[2017-04-27 07:59] LABS: ALT 34 U/L (9-52); AST 11 U/L (14-36); Alkaline Phosphatase 49 U/L (38-126); Anion Gap 8 mmol/L; Blood Urea Nitrogen 8 mg/dL (7-17); Calcium 8.3 mg/dL (8.4-10.2); Carbon Dioxide 21 mmol/L (22-30); Chloride 111 mmol/L (98-107); Glucose 101 mg/dL (74-99); Non-African American GFR(MDRD) >60 (>60 ml/min/1.73 sqM); Potassium 3.5 mmol/L (3.5-5.1); Sodium 140 mmol/L (137-145); Total Bilirubin <0.1 mg/dL (0.2-1.3); Total Protein 5.2 g/dL (6.3-8.2)
[2017-04-27] MEDS: metroNIDAZOLE 500 MG TAB PO SCH ×3 (09:10→21:34)
[2017-04-27] MEDS: amLODIPine 10 MG TAB PO SCH (09:10)
[2017-04-27] MEDS: LISINOPRIL 10 MG TAB PO SCH (09:10)
[2017-04-27] MEDS: GABAPENTIN 300 MG CAP PO SCH ×4 (09:10→21:33)
[2017-04-27] MEDS: KETOROLAC 0.5% OPHTH DROPS 5 ML BTL BOTH EYES SCH ×4 (09:10→21:33)
[2017-04-27] MEDS: DICYCLOMINE 10 MG CAP PO SCH ×4 (09:10→21:33)
[2017-04-27] MEDS: DICLOFENAC 0.1% OPHTH SOLN 2.5 ML BTL BOTH EYES SCH (09:11)
[2017-04-27] MEDS: ALPRAZolam 0.5 MG TAB PO SCH ×2 (09:16→21:32)
--- NOTE | 2017-04-27 11:56 | PN ---
PROGRESS NOTE Patient is a 82-year-old pleasant white female admitted to the hospital yesterday with left lower quadrant abdominal pain and subsequently diagnosed with acute sigmoid diverticulitis. She is presently on broad-spectrum antibiotics and this morning is feeling better. Abdominal pain is improved. The last flare-up of diverticulitis was in January of 2017. She denies any fever, chills, night sweats. Reports no nausea, vomiting. She had 1 bowel movement this morning. PHYSICAL EXAMINATION: She appears comfortable, not in apparent distress. VITAL SIGNS: Stable. Blood pressure is 125/68, pulse is 67, temperature 98.7. HEENT: Examination unremarkable. Conjunctivae pink. Oral cavity, no lesions. NECK: No JVD or lymph node enlargement. CHEST: Clear to auscultation. HEART: Regular rate and rhythm. ABDOMEN: Soft, nontender, nondistended. Mild tenderness in the left lower quadrant area. EXTREMITIES: No pedal edema. SKIN: No rashes. NEUROLOGIC: Alert and oriented x3. No focal deficits. LAB: From this morning are still pending at the time of this dictation. CT of the abdomen showed inflammatory changes around the lower descending colon consistent with mild diverticulitis. IMPRESSION: Acute left-sided diverticulitis, presently on broad-spectrum antibiotics with Levaquin as well as Flagyl and patient's symptoms are gradually improving. RECOMMENDATION: 1. Continue with broad-spectrum antibiotics. 2. Advance diet as tolerated. 3. If the symptoms continue to improve, she can be discharged home in the next 24-48 hours with an outpatient followup for colonoscopy in 8 weeks. MMODL / IJN: [id number] /
[2017-04-27 12:48] LABS: Glucose,Whole Blood 94 mg/dL (75-99)
--- NOTE | 2017-04-27 13:51 | P.PN ---
Progress Note - Text Progress Note Date: 04/27/17 The patient was fairly stable. The was admitted with the recurrent diverticulitis of the sigmoid descending colon area. She states she feels much better. The discomfort in the left lower quadrant is improved. He has been having 1-2 bowel movements a day. No nausea or vomiting. Tolerating her clear liquids. On examination the patient is a elderly white female in no acute distress. No fever. Vitals are stable. Abdomen is soft with hardly any tenderness on the left lower quadrant. No guarding or rebound. No mass, organomegaly or hernias noted. WBCs normal. Impression resolving acute diverticulitis. Left lower quadrant. Recommendation may increase her diet to full liquids. Continue antibiotics and medical management.
[2017-04-27] MEDS: HYDROmorphone 1 MG/ML 1 ML SYRINGE IVP PRN (14:25)
[2017-04-27 16:25] VITALS: RESP 20
--- NOTE | 2017-04-27 18:05 | PN ---
PROGRESS NOTE SUBJECTIVE: This is a white female admitted with acute diverticulitis, diverticulosis, abdominal pain, dehydration. Pain is 8 out of 10. CARDIOVASCULAR: S1, S2. LUNGS: Transmitted upper airway sounds. HEMATOLOGIC: Negative Homans'. PSYCH: Fair mood and affect. GI: Soft, nontender. Minimal tenderness to palpation in the left lower quadrant. Diet will be advanced to a soft diet. Advance as tolerated. Possible discharge home in the next 24 to 48 hours with outpatient colonoscopy to be done as an outpatient. No surgical intervention per surgery consult. MMODL / IJN: [id number] /
[2017-04-27 18:07] LABS: Glucose,Whole Blood 81 mg/dL (75-99)
[2017-04-27 21:06] LABS: Glucose,Whole Blood 91 mg/dL (75-99)
[2017-04-27] MEDS: LEVOFLOXACIN 750MG-D5W PMX 750 MG in DEXTROSE/WATER 1 150ML.BAG IVPB SCH (21:31)
[2017-04-27] MEDS: DONEPEZIL 10 MG TAB PO SCH (21:32)
[2017-04-27] MEDS: FAMOTIDINE 20 MG TAB PO SCH (21:32)
[2017-04-27] MEDS: ATORVASTATIN 10 MG TAB PO SCH (21:32)
[2017-04-27] MEDS: TOBRAMYCIN 0.3% OPHTH DROPS 5 ML BTL BOTH EYES SCH (21:33)
[2017-04-28] MEDS: SODIUM CHLORIDE 0.9% 1,000 ML IV SCH ×2 (02:35→09:43)
[2017-04-28] MEDS: HYDROmorphone 1 MG/ML 1 ML SYRINGE IVP PRN (05:30)
[2017-04-28 06:56] VITALS: BP 138/63; PULSE 64; TEMP 98.4
[2017-04-28 07:18] LABS: Glucose,Whole Blood 106 mg/dL (75-99)
[2017-04-28] MEDS: metroNIDAZOLE 500 MG TAB PO SCH (09:45)
[2017-04-28] MEDS: amLODIPine 10 MG TAB PO SCH (09:45)
[2017-04-28] MEDS: LISINOPRIL 10 MG TAB PO SCH (09:45)
[2017-04-28] MEDS: KETOROLAC 0.5% OPHTH DROPS 5 ML BTL BOTH EYES SCH (09:46)
[2017-04-28] MEDS: GABAPENTIN 300 MG CAP PO SCH (09:46)
[2017-04-28] MEDS: DICYCLOMINE 10 MG CAP PO SCH (09:46)
[2017-04-28] MEDS: DICLOFENAC 0.1% OPHTH SOLN 2.5 ML BTL BOTH EYES SCH (09:46)
[2017-04-28] MEDS: ALPRAZolam 0.5 MG TAB PO SCH (09:50)
--- NOTE | 2017-04-28 09:53 | PN ---
PROGRESS NOTE DATE OF SERVICE: 04/28/17 REQUESTING PHYSICIAN: Dr. Chris London. INTERVAL HISTORY: The patient is an 85-year-old pleasant white female admitted to hospital with acute sigmoid diverticulitis and presently on broad spectrum antibiotics. She is doing much better today. The abdominal pain has resolved. She is on a full liquid diet, tolerating well. She reports no fever, chills, night sweats. PHYSICAL EXAMINATION: She appears comfortable. No apparent distress. VITAL SIGNS: Stable. Blood pressure is 138/63, pulse rate 64, temperature 98.4. HEENT: Unremarkable. Conjunctivae pink. Sclerae anicteric. Oral cavity no lesions. Neck: No jugular venous distention or lymph node enlargement. Chest clear to auscultation. HEART: Regular rate and rhythm. ABDOMEN: Soft. Bowel sounds are positive. It was nontender, nondistended. Extremities no pedal edema. Skin no rashes. NEUROLOGIC: Alert and oriented times three. No focal deficits. LABS: From this morning not available. IMPRESSION: Acute sigmoid diverticulitis. Presently on IV Cipro and Flagyl, doing extremely well. Her symptoms have completely resolved. Presently on broad-spectrum antibiotics with Flagyl and Levaquin. RECOMMENDATIONS: 1. Advance to soft diet. 2. She can be discharged home today or tomorrow with outpatient follow up in 3-4 weeks. MMODL / IJN: [id number] /
--- NOTE | 2017-04-28 10:40 | P.PN ---
Progress Note - Text Progress Note Date: 04/28/17 The patient is doing a whole lot better. She feels great. No abdominal pain. Was admitted with acute diverticulitis. On examination she is afebrile vitals are stable she is very comfortable cheerful and in no distress. Abdomen is very soft and benign with no tenderness now in the left lower quadrant no guarding or rebound. Impression recurrent acute diverticulitis. Recommendation may advance her diet. From a surgical standpoint she can be discharged home. Follow-up with Dr. Gupta in about 2 weeks so.
[2017-04-28 12:23] LABS: Glucose,Whole Blood 97 mg/dL (75-99)
--- NOTE | 2017-06-02 10:52 | P.DS ---
Providers Date of admission: 04/24/17 20:43 Attending physician: Chris London Consults: 04/25/17 16:42 Consult Physician Routine Consulting Provider: Cirilo Guzman Consult Reason/Comments: diverticulitis Do you want consulting provider notified?: Yes Consult Physician Routine Consulting Provider: Cassy Quintana Consult Reason/Comments: diverticulitis Do you want consulting provider notified?: Yes Primary care physician: [facility] Course: Patient was seen for IV diverticulitis IV antibiotic given clear liquid diet was given IV pain medication was given patient was stabilized some medical standpoint clear liquid diet was given clear by surgery for discharge after being treated for a few days for diverticulitis in standard fashion with surgical consult please see labs CAT scans Patient Condition at Discharge: Stable Plan - Discharge Summary Discharge Rx Participant: Yes New Discharge Prescriptions: New Ciprofloxacin HCl [Cipro] 500 mg PO Q12HR #20 tablet metroNIDAZOLE [Flagyl] 500 mg PO TID #20 tab No Action Simvastatin [Zocor] 20 mg PO HS Gabapentin 600 mg PO QID Lisinopril [Prinivil] 10 mg PO QAM Donepezil [Aricept] 10 mg PO HS Tobramycin 0.3% Ophth Soln [Tobrex 0.3% Ophth Soln] 1 drop BOTH EYES HS Ciprofloxacin HCl [Cipro] 500 mg PO BID Bromfenac Sodium [Prolensa Ophth Soln] 1 drop BOTH EYES DAILY Diclofenac 0.1% Ophth Soln [Voltaren 0.1% Ophth Soln] 1 drops RIGHT EYE QID Simethicone [Gas-X] 125 mg PO TID PRN PRN Reason: GAS RELIEF Ondansetron Odt [Zofran Odt] 4 mg PO Q12HR PRN PRN Reason: Nausea amLODIPine BESYLATE [Norvasc] 10 mg PO DAILY Dicyclomine [Bentyl] 10 mg PO QID metFORMIN HCL [Glucophage] 500 mg PO DAILY ALPRAZolam [Xanax] 0.5 mg PO BID Discharge Medication List Donepezil [Aricept] 10 mg PO HS 06/14/16 [History] Gabapentin 600 mg PO QID 06/14/16 [History] Lisinopril [Prinivil] 10 mg PO QAM 06/14/16 [History] Simvastatin [Zocor] 20 mg PO HS 06/14/16 [History] ALPRAZolam [Xanax] 0.5 mg PO BID 04/24/17 [History] Bromfenac Sodium [Prolensa Ophth Soln] 1 drop BOTH EYES DAILY 04/24/17 [History] Ciprofloxacin HCl [Cipro] 500 mg PO BID 04/24/17 [History] Diclofenac 0.1% Ophth Soln [Voltaren 0.1% Ophth Soln] 1 drops RIGHT EYE QID 01/31 [History] Dicyclomine [Bentyl] 10 mg PO QID 04/24/17 [History] Ondansetron Odt [Zofran Odt] 4 mg PO Q12HR PRN 04/24/17 [History] Simethicone [Gas-X] 125 mg PO TID PRN 04/24/17 [History] Tobramycin 0.3% Ophth Soln [Tobrex 0.3% Ophth Soln] 1 drop BOTH EYES HS [History] amLODIPine BESYLATE [Norvasc] 10 mg PO DAILY 04/24/17 [History] metFORMIN HCL [Glucophage] 500 mg PO DAILY 04/24/17 [History] Ciprofloxacin HCl [Cipro] 500 mg PO Q12HR #20 tablet 04/28/17 [Rx] metroNIDAZOLE [Flagyl] 500 mg PO TID #20 tab 04/28/17 [Rx] Follow up Appointment(s)/Referral(s): Chris London MD [Primary Care Provider] - 1-2 days [facility] Visiting Nurse, [NON-STAFF] - Patient Instructions/Handouts: Diverticulitis (DC) Discharge Disposition: HOME WITH HOME HEALTH SERVICES
== END 2017-04-28 13:34 | disposition home health service (06) | DRG 872 ==
LOC: EC 16:31 → 4MS4W 20:43
PROVIDERS: ADMIT Family Medicine; ATTEND Family Medicine
DX: A41.9 Sepsis, unspecified organism (principal); K57.32 Diverticulitis of large intestine without perforation or abscess without bleeding; F03.90 Unspecified dementia, unspecified severity, without behavioral disturbance, psychotic disturbance, mood disturbance, and anxiety; E11.9 Type 2 diabetes mellitus without complications; E86.0 Dehydration; E78.00 Pure hypercholesterolemia, unspecified; E78.5 Hyperlipidemia, unspecified; I10 Essential (primary) hypertension; K58.9 Irritable bowel syndrome, unspecified; Z79.899 Other long term (current) drug therapy; Z82.49 Family history of ischemic heart disease and other diseases of the circulatory system; Z82.5 Family history of asthma and other chronic lower respiratory diseases; Z87.891 Personal history of nicotine dependence; Z88.5 Allergy status to narcotic agent; Z79.84 Long term (current) use of oral hypoglycemic drugs; Z88.2 Allergy status to sulfonamides
CPT/HCPCS: 36415; 74177; 80053; 81001; 82150; 83036; 83605; 83690; 84484; 85025; 87040; 87324; 93005; 96361; 96365; 96375; 99285

== ENCOUNTER 2017-06-21 12:14 | Inpatient (IN) | payer MEDICARE ==
[2017-06-21] MEDS ORDERED: ONDANSETRON 4 MG/2 ML VIAL IVP STA (13:06)
[2017-06-21] MEDS ORDERED: HYDROmorphone 1 MG/ML 1 ML SYRINGE IVP STA (13:06)
[2017-06-21] MEDS ORDERED: SODIUM CHLORIDE 0.9% 500 ML IV ONE (13:06)
[2017-06-21] MEDS ORDERED: RX INFO: IV CONTRAST WAS GIVEN 1 EACH MISC MISCELLANE PRN (13:06)
[2017-06-21 13:41] LABS: Basophils % (A) 0 %; Eosinophils # (A) 0.1 k/uL (0-0.7); Eosinophils % (A) 1 %; HCT 39.7 % (34.0-46.0); HGB 12.5 gm/dL (11.4-16.0); Lymphocytes # (A) 1.1 k/uL (1.0-4.8); Lymphocytes % (A) 8 %; MCH 27.6 pg (25.0-35.0); MCHC 31.5 g/dL (31.0-37.0); MCV 87.7 fL (80.0-100.0); Mean Platelet Volume 6.1; Monocytes # (A) 0.7 k/uL (0-1.0); Monocytes % (A) 5 %; Neutrophils % (A) 84 %; Platelet Count 255 k/uL (150-450); RBC 4.53 m/uL (3.80-5.40); RDW 14.2 % (11.5-15.5); WBC 13.1 k/uL (3.8-10.6)
[2017-06-21 13:52] LABS: Albumin 3.4 g/dL (3.5-5.0); Calcium 9.5 mg/dL (8.4-10.2); Potassium 4.6 mmol/L (3.5-5.1); Total Bilirubin 0.2 mg/dL (0.2-1.3); Total Protein 5.7 g/dL (6.3-8.2)
--- NOTE | 2017-06-21 14:14 | ED ---
General Adult HPI - General Chief complaint: Nausea/Vomiting/Diarrhea Stated complaint: Abd Pain, vomiting Time Seen by Provider: 06/21/17 12:36 Source: patient, family Mode of arrival: wheelchair Limitations: no limitations - History of Present Illness Initial comments: Patient is an 82-year-old female with a history of diverticulitis who presents with a chief complaint of abdominal pain. This pain has been getting worse over the last 3 days. She is scheduled to have surgery for bowel resection to remove the diseased portion of her bowel. She was told by Dr. Guzman to come to the emergency department if she was having pain. She cannot identify any inciting incidences. There are no aggravating or alleviating factors. Patient does acknowledge loose stools. She has had nausea and vomiting. She does not admit to a fever. - Related Data Home Medications Medication Instructions Recorded Confirmed Donepezil [Aricept] 10 mg PO HS 06/14/16 06/21/17 Gabapentin 600 mg PO QAM 06/14/16 06/21/17 Lisinopril [Prinivil] 10 mg PO QAM 06/14/16 06/21/17 Simvastatin [Zocor] 20 mg PO HS 06/14/16 06/21/17 ALPRAZolam [Xanax] 0.5 mg PO BID 04/24/17 06/21/17 Dicyclomine [Bentyl] 10 mg PO QID 04/24/17 06/21/17 Ondansetron Odt [Zofran Odt] 4 mg PO Q12HR PRN 04/24/17 06/21/17 Simethicone [Gas-X] 125 mg PO AC-TID PRN 04/24/17 06/21/17 amLODIPine BESYLATE [Norvasc] 10 mg PO DAILY 04/24/17 06/21/17 metFORMIN HCL [Glucophage] 500 mg PO AC-BRKFST 04/24/17 06/21/17 Gabapentin 1,200 mg PO HS 06/21/17 06/21/17 Levofloxacin [Levaquin] 500 mg PO DAILY 06/21/17 06/21/17 Omeprazole 40 mg PO HS 06/21/17 06/21/17 Allergies Allergy/AdvReac Type Severity Reaction Status Date / Time morphine Allergy Itching Verified 06/21/17 12:51 Sulfa (Sulfonamide Allergy Rash/Hives Verified 06/21/17 12:51 Antibiotics) Review of Systems ROS Statement: Those systems with pertinent positive or pertinent negative responses have been documented in the HPI. ROS Other: All systems not noted in ROS Statement are negative. Gastrointestinal: Reports: abdominal pain, nausea, vomiting, diarrhea Past Medical History Past Medical History: Hypertension Additional Past Medical History / Comment(s): diverticulitis History of Any Multi-Drug Resistant Organisms: None Reported Past Surgical History: Cholecystectomy Additional Past Surgical History / Comment(s): lumpectomy Past Anesthesia/Blood Transfusion Reactions: No Reported Reaction Past Psychological History: No Psychological Hx Reported Smoking Status: Former smoker Past Alcohol Use History: None Reported Past Drug Use History: None Reported - Past Family History Father Family Medical History: Congestive Heart Failure (CHF), COPD General Exam Limitations: no limitations General appearance: alert, in no apparent distress Head exam: Present: atraumatic, normocephalic Eye exam: Present: normal appearance ENT exam: Present: mucous membranes moist Neck exam: Present: normal inspection Respiratory exam: Present: normal lung sounds bilaterally Cardiovascular Exam: Present: regular rate, normal rhythm GI/Abdominal exam: Present: soft, tenderness. Absent: distended, guarding, rebound, rigid (diffuse tenderness to palpation) Rectal exam: Present: deferred Neurological exam: Present: alert, oriented X3 Psychiatric exam: Present: normal affect, normal mood Skin exam: Present: warm, dry, intact Course Vital Signs 06/21/17 06/21/17 12:23 15:41 Temperature 98.4 F 97.8 F Pulse Rate 89 85 Respiratory 16 18 Rate Blood Pressure 98/52 112/55 O2 Sat by Pulse 94 L 94 L Oximetry Medical Decision Making - Medical Decision Making Patient presents with a chief complaint of abdominal pain and a history of recurrent diverticulitis. Patient will have basic blood work and go for computed tomography scan of the abdomen and pelvis. 3:30 PM Lab evaluation of this patient shows kidney injury with an elevated creatinine and decreased GFR of unknown chronicity. The patient states that she does not have any history of renal impairment. White blood cells are elevated at 13, 000. CT of the abdomen and pelvis shows extensive diverticulosis mostly of the left colon however the study is somewhat limited secondary to the lack of contrast. There seems to be a mild degree of active diverticulitis. I discussed this case with Dr. Guzman who is aware of the patient's presence in the emergency department. The patient will be started on antibiotics and admitted for further surgical consultation. Patient's previous admission was reviewed, the patient was septic at that time secondary to diverticulitis. 5:40 PM This case was discussed with Dr. London who accepts admission of this patient with consult to Dr. Guzman. - Lab Data Result diagrams: 06/21/17 13:25 06/21/17 13:25 Lab Results 06/21/17 06/21/17 Range/Units 13:25 13:25 WBC 13.1 H (3.8-10.6) k/uL RBC 4.53 (3.80-5.40) m/uL Hgb 12.5 (11.4-16.0) gm/dL Hct 39.7 (34.0-46.0) % MCV 87.7 (80.0-100.0) fL MCH 27.6 (25.0-35.0) pg MCHC 31.5 (31.0-37.0) g/dL RDW 14.2 (11.5-15.5) % Plt Count 255 (150-450) k/uL Neutrophils % 84 % Lymphocytes % 8 % Monocytes % 5 % Eosinophils % 1 % Basophils % 0 % Neutrophils # 11.0 H (1.3-7.7) k/uL Lymphocytes # 1.1 (1.0-4.8) k/uL Monocytes # 0.7 (0-1.0) k/uL Eosinophils # 0.1 (0-0.7) k/uL Basophils # 0.0 (0-0.2) k/uL Sodium 137 (137-145) mmol/L Potassium 4.6 (3.5-5.1) mmol/L Chloride 97 L (98-107) mmol/L Carbon Dioxide 29 (22-30) mmol/L Anion Gap 11 mmol/L BUN 27 H (7-17) mg/dL Creatinine 1.71 H (0.52-1.04) mg/dL Est GFR (MDRD) Af Amer 35 (>60 ml/min/1.73 sqM) Est GFR (MDRD) Non-Af 29 (>60 ml/min/1.73 sqM) Glucose 88 (74-99) mg/dL Calcium 9.5 (8.4-10.2) mg/dL Total Bilirubin 0.2 (0.2-1.3) mg/dL AST 17 (14-36) U/L ALT 28 (9-52) U/L Alkaline Phosphatase 50 (38-126) U/L Total Protein 5.7 L (6.3-8.2) g/dL Albumin 3.4 L (3.5-5.0) g/dL Lipase 56 (23-300) U/L Disposition Clinical Impression: Diverticulitis, RENEE (acute kidney injury) Disposition: ADMITTED IP TO THIS [facility] Condition: Good Referrals: Chris London MD [Primary Care Provider] - 1-2 days Decision to Admit Reason: Admit from [facility] - Out of Hospital Transfer - Req. Specs Out of Hospital Transfer - Requested Specifics: Other Non-Acute
--- NOTE | 2017-06-21 14:54 | CT ---
EXAMINATION TYPE: CT abdomen pelvis wo con DATE OF EXAM: 06/21/2017 COMPARISON: 04/24/2017 HISTORY: Abdominal pain, vomiting, diverticulitis history CT DLP: 834.0 mGycm Automated exposure control for dose reduction was used. TECHNIQUE: Helical acquisition of images was performed from the lung bases through the pelvis. FINDINGS: LUNG BASES: No significant abnormality is appreciated. LIVER/GB: Postcholecystectomy changes noted. Mild intrahepatic biliary ductal dilation likely related to postcholecystectomy changes. PANCREAS: No significant abnormality is seen. SPLEEN: No significant abnormality is seen. ADRENALS: No significant abnormality is seen. KIDNEYS: No significant abnormality is seen. FREE AIR: No free air is visualized URINARY BLADDER: No significant abnormality is seen. ADENOPATHY: None visualized. OSSEOUS STRUCTURES: Scoliosis and degenerative change spine noted canal stenosis at multiple levels. . BOWEL: Again noted are extensive changes of diverticulosis greater involvement involving the left co levi. Mild residual diverticulitis not excluded. No abscess or free air. No obstruction.. Large hiatal hernia noted. Lipoma or fatty lipomatous ileocecal valve noted within the right colon. OTHER: Atherosclerotic change. No evidence of aortic aneurysm. Benign-appearing calcification in the right breast noted. Fat-containing periumbilical hernia noted. IMPRESSION: 1. Extensive diverticulosis with greater involvement of the left colon. Mild residual diverticulitis of the left colon not excluded. No abscess or obstruction. 2. Large hiatal hernia. 3. Postcholecystectomy changes.
[2017-06-21] MEDS ORDERED: cefTRIAXone IN SWFI 1,000 MG/10 ML SYRINGE IVP STA (15:40)
[2017-06-21] MEDS ORDERED: metroNIDAZOLE 500 MG TAB PO STA (15:40)
[2017-06-21] MEDS ORDERED: NALOXONE 0.4 MG/ML 1 ML VIAL IV PRN (17:36)
[2017-06-21] MEDS ORDERED: SODIUM CHLORIDE 0.9% 1,000 ML IV SCH (20:00)
[2017-06-21] MEDS ORDERED: NON-FORMULARY DRUG (Omeprazole [Omeprazole] 40 MG) PO SCH (21:00)
[2017-06-21] MEDS: DONEPEZIL 10 MG TAB PO SCH (21:09)
[2017-06-21] MEDS: GABAPENTIN 300 MG CAP PO SCH (21:09)
[2017-06-21] MEDS: ATORVASTATIN 10 MG TAB PO SCH (21:09)
[2017-06-21] MEDS: INSULIN ASPART 100 UNIT/ML 1 ML 10 ML VIAL SQ SCH (21:09)
[2017-06-21] MEDS: DICYCLOMINE 10 MG CAP PO SCH (21:09)
[2017-06-21 21:18] LABS: Glucose,Whole Blood 74 mg/dL (75-99)
[2017-06-21 21:57] LABS: Glucose,Whole Blood 107 mg/dL (75-99)
[2017-06-22] MEDS: DEXTROSE 5%-0.45% NACL 1,000 ML IV SCH ×2 (02:00→10:19)
[2017-06-22] MEDS: HYDROmorphone 2 MG/ML 1 ML SYRINGE IV PRN ×2 (02:48→22:22)
[2017-06-22 07:07] LABS: Glucose,Whole Blood 108 mg/dL (75-99)
[2017-06-22] MEDS ORDERED: metFORMIN 500 MG TAB PO SCH (07:30)
[2017-06-22 08:06] LABS: Basophils % (A) 0 %; Eosinophils # (A) 0.1 k/uL (0-0.7); Eosinophils % (A) 1 %; HCT 38.3 % (34.0-46.0); HGB 11.8 gm/dL (11.4-16.0); Lymphocytes # (A) 1.3 k/uL (1.0-4.8); Lymphocytes % (A) 15 %; MCH 27.3 pg (25.0-35.0); MCHC 30.9 g/dL (31.0-37.0); MCV 88.4 fL (80.0-100.0); Mean Platelet Volume 6.7; Monocytes # (A) 0.6 k/uL (0-1.0); Monocytes % (A) 7 %; Neutrophils # (A) 6.3 k/uL (1.3-7.7); Neutrophils % (A) 74 %; Platelet Count 214 k/uL (150-450); RBC 4.33 m/uL (3.80-5.40); RDW 14.2 % (11.5-15.5); WBC 8.6 k/uL (3.8-10.6)
[2017-06-22 08:27] LABS: Calcium 8.5 mg/dL (8.4-10.2); Total Bilirubin 0.3 mg/dL (0.2-1.3); Total Protein 5.2 g/dL (6.3-8.2)
[2017-06-22] MEDS: ONDANSETRON 4 MG/2 ML VIAL IVP PRN (10:10)
--- NOTE | 2017-06-22 11:06 | P.GSCN ---
History of Present Illness Consult date: 06/22/17 Reason for Consult: Nausea, vomiting, epigastric pain History of present illness: This 82-year-old female well-known to myself. Patient sees Dr. Chris Wallis as an outpatient. She has a history of chronic diverticulitis. She is active scheduled for low anterior resection on July 02. Patient has also a history of a hiatal hernia. Patient has had complaints of nausea vomiting for last 24 hours. She states she could not eat or drink anything for the last 2 days. Past Medical History Past Medical History: Hypertension Additional Past Medical History / Comment(s): diverticulitis History of Any Multi-Drug Resistant Organisms: None Reported Past Surgical History: Cholecystectomy Additional Past Surgical History / Comment(s): lumpectomy Past Anesthesia/Blood Transfusion Reactions: No Reported Reaction Past Psychological History: No Psychological Hx Reported Smoking Status: Former smoker Past Alcohol Use History: None Reported Past Drug Use History: None Reported - Past Family History Father Family Medical History: Congestive Heart Failure (CHF), COPD Mother Family Medical History: Diabetes Mellitus Additional Family Medical History / Comment(s): of heart attack 92 Medications and Allergies Home Medications Medication Instructions Recorded Confirmed Type Donepezil [Aricept] 10 mg PO HS 06/14/16 06/21/17 History Gabapentin 600 mg PO QAM 06/14/16 04/24/17 History Lisinopril [Prinivil] 10 mg PO QAM 06/14/16 06/21/17 History Simvastatin [Zocor] 20 mg PO HS 06/14/16 06/21/17 History ALPRAZolam [Xanax] 0.5 mg PO BID 04/24/17 06/21/17 History Dicyclomine [Bentyl] 10 mg PO QID 04/24/17 06/21/17 History Ondansetron Odt [Zofran Odt] 4 mg PO Q12HR PRN 04/24/17 06/21/17 History Simethicone [Gas-X] 125 mg PO AC-TID PRN 04/24/17 06/21/17 History amLODIPine BESYLATE [Norvasc] 10 mg PO DAILY 04/24/17 06/21/17 History metFORMIN HCL [Glucophage] 500 mg PO AC-BRKFST 04/24/17 06/21/17 History Gabapentin 1,200 mg PO HS 06/21/17 History Levofloxacin [Levaquin] 500 mg PO DAILY 06/21/17 06/21/17 History Omeprazole 40 mg PO HS 06/21/17 06/21/17 History Allergies Allergy/AdvReac Type Severity Reaction Status Date / Time morphine Allergy Itching Verified 06/21/17 19:39 Sulfa (Sulfonamide Allergy Rash/Hives Verified 06/21/17 19:39 Antibiotics) Surgical - Exam Vital Signs Temp Pulse Resp BP Pulse Ox 98.4 F 89 16 98/52 94 L 06/21/17 12:23 06/21/17 12:23 06/21/17 12:23 06/21/17 12:23 06/21/17 12:23 - General well developed, no distress - Eyes PERRL - ENT normal pinna - Neck no masses - Respiratory normal expansion - Cardiovascular Rhythm: regular - Abdomen Abdomen: soft, non tender Results - Labs 06/22/17 07:19 06/22/17 07:19 Abnormal Lab Results - Last 24 Hours (Table) 06/21/17 06/21/17 06/21/17 Range/Units 13:25 13:25 20:59 WBC 13.1 H (3.8-10.6) k/uL MCHC (31.0-37.0) g/dL Neutrophils # 11.0 H (1.3-7.7) k/uL Chloride 97 L (98-107) mmol/L BUN 27 H (7-17) mg/dL Creatinine 1.71 H (0.52-1.04) mg/dL Glucose (74-99) mg/dL POC Glucose (mg/dL) 74 L (75-99) mg/dL Total Protein 5.7 L (6.3-8.2) g/dL Albumin 3.4 L (3.5-5.0) g/dL 06/21/17 06/22/17 06/22/17 Range/Units 21:55 07:04 07:19 WBC (3.8-10.6) k/uL MCHC 30.9 L (31.0-37.0) g/dL Neutrophils # (1.3-7.7) k/uL Chloride (98-107) mmol/L BUN (7-17) mg/dL Creatinine (0.52-1.04) mg/dL Glucose (74-99) mg/dL POC Glucose (mg/dL) 107 H 108 H (75-99) mg/dL Total Protein (6.3-8.2) g/dL Albumin (3.5-5.0) g/dL 06/22/17 Range/Units 07:19 WBC (3.8-10.6) k/uL MCHC (31.0-37.0) g/dL Neutrophils # (1.3-7.7) k/uL Chloride (98-107) mmol/L BUN 19 H (7-17) mg/dL Creatinine 1.11 H (0.52-1.04) mg/dL Glucose 111 H (74-99) mg/dL POC Glucose (mg/dL) (75-99) mg/dL Total Protein 5.2 L (6.3-8.2) g/dL Albumin 3.0 L (3.5-5.0) g/dL Diabetes panel 06/21/17 06/22/17 Range/Units 13:25 07:19 Sodium 137 139 (137-145) mmol/L Potassium 4.6 4.0 (3.5-5.1) mmol/L Chloride 97 L 102 (98-107) mmol/L Carbon Dioxide 29 27 (22-30) mmol/L BUN 27 H 19 H (7-17) mg/dL Creatinine 1.71 H 1.11 H (0.52-1.04) mg/dL Glucose 88 111 H (74-99) mg/dL Calcium 9.5 8.5 (8.4-10.2) mg/dL AST 17 14 (14-36) U/L ALT 28 33 (9-52) U/L Alkaline Phosphatase 50 40 (38-126) U/L Total Protein 5.7 L 5.2 L (6.3-8.2) g/dL Albumin 3.4 L 3.0 L (3.5-5.0) g/dL Calcium panel 06/21/17 06/22/17 Range/Units 13:25 07:19 Calcium 9.5 8.5 (8.4-10.2) mg/dL Albumin 3.4 L 3.0 L (3.5-5.0) g/dL Pituitary panel 06/21/17 06/22/17 Range/Units 13:25 07:19 Sodium 137 139 (137-145) mmol/L Potassium 4.6 4.0 (3.5-5.1) mmol/L Chloride 97 L 102 (98-107) mmol/L Carbon Dioxide 29 27 (22-30) mmol/L BUN 27 H 19 H (7-17) mg/dL Creatinine 1.71 H 1.11 H (0.52-1.04) mg/dL Glucose 88 111 H (74-99) mg/dL Calcium 9.5 8.5 (8.4-10.2) mg/dL Adrenal panel 06/21/17 06/22/17 Range/Units 13:25 07:19 Sodium 137 139 (137-145) mmol/L Potassium 4.6 4.0 (3.5-5.1) mmol/L Chloride 97 L 102 (98-107) mmol/L Carbon Dioxide 29 27 (22-30) mmol/L BUN 27 H 19 H (7-17) mg/dL Creatinine 1.71 H 1.11 H (0.52-1.04) mg/dL Glucose 88 111 H (74-99) mg/dL Calcium 9.5 8.5 (8.4-10.2) mg/dL Total Bilirubin 0.2 0.3 (0.2-1.3) mg/dL AST 17 14 (14-36) U/L ALT 28 33 (9-52) U/L Alkaline Phosphatase 50 40 (38-126) U/L Total Protein 5.7 L 5.2 L (6.3-8.2) g/dL Albumin 3.4 L 3.0 L (3.5-5.0) g/dL - Imaging CT scan - abdomen: report reviewed (Diverticulosis of left colon, large hiatal hernia) Assessment and Plan Assessment: Large hiatal hernia. Patient's nausea vomiting most likely related to her hiatal hernia. The patient will undergo EGD. We may repair her hiatal hernia prior to her upcoming colon resection. I will discuss this with Dr. Chris Wallis.
[2017-06-22 11:32] LABS: Glucose,Whole Blood 106 mg/dL (75-99)
--- NOTE | 2017-06-22 12:35 | HP ---
HISTORY AND PHYSICAL CHIEF COMPLAINT: This is an 82-year-old white female with history of diverticulitis developed complains of abdominal pain for the past 3 days. She is scheduled to have bowel resection on disease part of her bowel. Seen by Dr. Guzman surgeon sent her to the ER. She was having pain left lower quadrant, mostly on the right lateral thoracic upper GI area. She does have some loose stools and some nausea and vomiting with no fever. The pain on the right flank is worse with movement. HOME MEDICATION: Include Aricept 10 mg daily, gabapentin 600 am, Prinivil 10 mg a.m., Zocor 20 mg daily. Xanax 0.5 mg b.i.d., Bentyl 10 mg q.i.d., Zofran 4 mg q.12 hours p.r.n., Gas-X a.c. t.i.d. 8, Norvasc 10 mg daily, Glucophage 500 mg p.o. a.c. breakfast, gabapentin 1200 mg q.h.s., Levaquin 500 mg daily, omeprazole 40 mg daily. ALLERGIES: SULFA, MORPHINE. REVIEW OF SYSTEMS: Fourteen point review of systems negative except for mentioned in HPI. PAST MEDICAL HISTORY: hypertension, diverticulosis, history of cholecystectomy, lumpectomy. SOCIAL HISTORY: Former smoker. No alcohol. No illicit drugs. FAMILY HISTORY: Father with congestive heart failure and COPD. PHYSICAL EXAM: Vital signs stable. Afebrile. Cardiovascular S1, S2. Lungs transmitted upper sounds. GI soft, tender to palpation left lower quadrant and right flank area. HEAD: Normocephalic, atraumatic. ENT external ear canals within normal limits. no suprapubic tenderness. Neck normal inspection. Normal range of motion. Temp 97.8, pulse 80 to 85, respiratory 16 to 18, blood pressure low 100s over 50s, O2 sats 94% on room air. CT scan of the abdomen shows extensive diverticulosis, left lower quadrant ASSESSMENT: 1. Acute abdominal pain. 2. Acute on chronic diverticulosis. 3. Extensive diverticulosis. Plan continue with current treatment. Clear liquid diet. Medications will be ordered. Continue on Flagyl with IV Levaquin. 4. Acute on chronic renal insufficiency. Continue with fluid rehydration. 5. Hypoalbuminemia. 6. Acute on chronic renal insufficiency, chronic acute kidney injury. PLAN: IV antibiotics, clear liquid diets. Surgical consultation will be needed. Large hiatal hernia, symptoms most likely due to hiatal hernia per surgery, possibly EGD and repair hiatal hernia. They may want to do hiatal hernia surgery prior to upcoming colon resection. Await EGD report. MMODL / IJN: [id number] /
[2017-06-22] MEDS: DICYCLOMINE 10 MG CAP PO SCH ×4 (13:15→22:33)
[2017-06-22] MEDS: ALPRAZolam 0.5 MG TAB PO SCH ×2 (13:15→22:32)
[2017-06-22] MEDS: GABAPENTIN 300 MG CAP PO SCH ×4 (13:15→22:32)
[2017-06-22] MEDS: amLODIPine 10 MG TAB PO SCH (13:18)
[2017-06-22] MEDS: LISINOPRIL 10 MG TAB PO SCH (13:18)
[2017-06-22] MEDS: INSULIN ASPART 100 UNIT/ML 1 ML 10 ML VIAL SQ SCH ×3 (13:19→22:30)
[2017-06-22 14:44] LABS: Hemoglobin A1C 6.3 % (4.0-6.0)
[2017-06-22 17:38] LABS: Glucose,Whole Blood 99 mg/dL (75-99)
[2017-06-22 20:25] LABS: Glucose,Whole Blood 104 mg/dL (75-99)
[2017-06-22] MEDS: ATORVASTATIN 10 MG TAB PO SCH (22:33)
[2017-06-22] MEDS: DONEPEZIL 10 MG TAB PO SCH (22:36)
[2017-06-23] MEDS: DEXTROSE 5%-0.45% NACL 1,000 ML IV SCH ×3 (03:36→23:51)
[2017-06-23 06:52] LABS: Basophils % (A) 0 %; Eosinophils # (A) 0.2 k/uL (0-0.7); Eosinophils % (A) 2 %; HCT 36.7 % (34.0-46.0); Hypochromasia Slight; Lymphocytes # (A) 1.7 k/uL (1.0-4.8); Lymphocytes % (A) 22 %; MCH 26.8 pg (25.0-35.0); MCHC 30.1 g/dL (31.0-37.0); MCV 89.2 fL (80.0-100.0); Monocytes # (A) 0.6 k/uL (0-1.0); Monocytes % (A) 8 %; Neutrophils % (A) 65 %; Platelet Count 198 k/uL (150-450); RBC 4.11 m/uL (3.80-5.40); RDW 15.6 % (11.5-15.5); WBC 7.7 k/uL (3.8-10.6)
[2017-06-23 07:18] LABS: ALT 29 U/L (9-52); AST 12 U/L (14-36); Albumin 2.7 g/dL (3.5-5.0); Alkaline Phosphatase 37 U/L (38-126); Anion Gap 8 mmol/L; Blood Urea Nitrogen 10 mg/dL (7-17); Calcium 8.2 mg/dL (8.4-10.2); Carbon Dioxide 27 mmol/L (22-30); Chloride 104 mmol/L (98-107); Glucose 107 mg/dL (74-99); Potassium 3.7 mmol/L (3.5-5.1); Sodium 139 mmol/L (137-145); Total Bilirubin 0.2 mg/dL (0.2-1.3); Total Protein 4.9 g/dL (6.3-8.2)
[2017-06-23 07:29] LABS: Glucose,Whole Blood 103 mg/dL (75-99)
[2017-06-23] MEDS: metFORMIN 500 MG TAB PO SCH (09:24)
[2017-06-23] MEDS: LISINOPRIL 10 MG TAB PO SCH (09:24)
[2017-06-23] MEDS: ALPRAZolam 0.5 MG TAB PO SCH ×2 (09:24→20:50)
[2017-06-23] MEDS: DICYCLOMINE 10 MG CAP PO SCH ×4 (09:24→20:48)
[2017-06-23] MEDS: amLODIPine 10 MG TAB PO SCH (09:24)
[2017-06-23] MEDS: GABAPENTIN 300 MG CAP PO SCH ×4 (09:24→20:48)
[2017-06-23] MEDS: INSULIN ASPART 100 UNIT/ML 1 ML 10 ML VIAL SQ SCH ×4 (09:25→21:34)
[2017-06-23] MEDS: HYDROmorphone 2 MG/ML 1 ML SYRINGE IV PRN ×2 (09:29→20:48)
[2017-06-23 11:10] LABS: Glucose,Whole Blood 105 mg/dL (75-99)
--- NOTE | 2017-06-23 11:26 | P.PN ---
Progress Note - Text Progress Note Date: 06/23/17 The patient states her nausea has improved. She is requesting Morty. On exam her vital signs are stable. Her abdomen soft. There is no significant lower quadrant tenderness. History of hiatal hernia with chronic nausea. Patient will be scheduled to have her hiatal hernia. Prior to her scheduled low anterior resection. We will medical clearance by Dr. Wallis prior to surgery.
[2017-06-23 17:05] LABS: Glucose,Whole Blood 95 mg/dL (75-99)
[2017-06-23 20:27] LABS: Glucose,Whole Blood 125 mg/dL (75-99)
[2017-06-23] MEDS: ATORVASTATIN 10 MG TAB PO SCH (20:48)
[2017-06-23] MEDS: ONDANSETRON 4 MG/2 ML VIAL IVP PRN (21:09)
[2017-06-23 21:22] LABS: Glucose,Whole Blood 101 mg/dL (75-99)
[2017-06-23] MEDS: DONEPEZIL 10 MG TAB PO SCH (21:34)
[2017-06-24 07:08] LABS: Glucose,Whole Blood 114 mg/dL (75-99)
[2017-06-24] MEDS: INSULIN ASPART 100 UNIT/ML 1 ML 10 ML VIAL SQ SCH ×4 (07:45→21:50)
[2017-06-24] MEDS: amLODIPine 10 MG TAB PO SCH (08:51)
[2017-06-24] MEDS: metFORMIN 500 MG TAB PO SCH (08:51)
[2017-06-24] MEDS: GABAPENTIN 300 MG CAP PO SCH ×4 (08:51→21:53)
[2017-06-24] MEDS: DICYCLOMINE 10 MG CAP PO SCH ×4 (08:51→21:54)
[2017-06-24] MEDS: LISINOPRIL 10 MG TAB PO SCH (08:51)
[2017-06-24] MEDS: ALPRAZolam 0.5 MG TAB PO SCH ×2 (08:51→21:52)
--- NOTE | 2017-06-24 09:10 | PN ---
PROGRESS NOTE SUBJECTIVE: An 82-year-old white female with right flank pain which is improved. She states this pain is worse when she moves and lifts herself out of bed. She is now complaining of more left lower quadrant pain, consistent with her acute diverticulitis. She has severe diverticulitis and is scheduled for possible colectomy in the near future by Dr. Jovel. CARDIOVASCULAR: S1, S2. LUNGS: Clear. GI: Soft. The surgical intervention since she has a large hiatal hernia and needs fixing first which is scheduled for July 02 and then colectomy later on down the road. Will advance her diet and possible discharge home in the next few days. MMODL / IJN: [id number] /
--- NOTE | 2017-06-24 10:14 | P.PN ---
Subjective Progress Note Date: 06/24/17 82-year-old female seen and examined sitting up in a chair. Taking a diet.states passing gas has had a bowel movement denies nausea vomiting. Patient does report having lower quadrant tenderness. Abdomen soft. Has a history of a hiatal hernia with chronic nausea. Scheduled to have the hiatal hernia repair done this week Objective - Vital Signs Vital signs: Vital Signs Temp 97.8 F 06/24/17 07:00 Pulse 66 06/24/17 07:00 Resp 16 06/24/17 07:00 BP 113/71 06/24/17 07:00 Pulse Ox 95 06/24/17 07:00 Intake & Output 06/23/17 06/24/17 06/24/17 18:59 06:59 18:59 Intake Total 1320 900 Output Total 400 Balance 1320 500 Intake: Intake, IV Titration 600 900 Amount Dextrose 5%-0.45% NaCl 1, 600 900 000 ml @ 75 mls/hr IV . [id number] [facility] Rx#:[id number] Oral 720 Output: Urine 400 Other: Voiding Method Toilet Toilet # Voids 3 2 - Exam physical exam 82-year-old female alert oriented 3 sitting in a chair Lungs adequate air movement bilaterally no wheezing rail rhonchi Heart S1-S2 audible regular Abdomen slight tenderness to the bilateral lower quadrants bowel tones present no nausea no vomiting tolerating diet Extremities trace pedal edema bilaterally - Labs CBC & Chem 7: 06/23/17 06:18 06/23/17 06:18 Labs: Abnormal Lab Results - Last 24 Hours (Table) 06/23/17 06/23/17 06/23/17 Range/Units 10:58 19:52 21:20 POC Glucose (mg/dL) 105 H 125 H 101 H (75-99) mg/dL 06/24/17 Range/Units 06:51 POC Glucose (mg/dL) 114 H (75-99) mg/dL Assessment and Plan Assessment: impression Present on admission nausea vomitingsuspect due to large hiatal hernia History of chronic diverticulitis scheduled for a low anterior resection July 02 History of a large hiatal hernia computed tomography scan abdomen shows diverticulosis of the left colon and a large hiatal hernia Plan Patient will undergo an EGD this admission Possible repair of a hiatal hernia this admission Aspiration precautions Low anterior colon resection to be done timing to be determined possible this admission done DVT and GI prophylaxis will need medical clearance prior to proceeding with surgical procedure The above impression and plan of care have been discussed and directed by signing physician. Lori Wilkins nurse practitioner acting as scribe for signing physician.
[2017-06-24 11:34] LABS: Glucose,Whole Blood 84 mg/dL (75-99)
[2017-06-24] MEDS: HYDROcodone/APAP 5-325MG 1 EACH TAB PO PRN ×2 (12:58→21:52)
--- NOTE | 2017-06-24 14:01 | PN ---
PROGRESS NOTE SUBJECTIVE: An 82-year-old white female who was admitted with acute diverticulitis, acute abdominal pain, secondary to hiatal hernia, reflux. She is scheduled for hiatal hernia surgery 2 days from now. I discussed this with her family and her, which would improve her abdominal pain and chronic GERD, and chronic pulmonary infection she gets. Vital signs are stable, afebrile. CARDIOVASCULAR: S1, S2. LUNGS: Clear. GI: Soft. Mild tenderness to palpation epigastric, mild left lower quadrant abdominal pain. ASSESSMENT: 1. Diverticulitis, acute, left lower quadrant. 2. Acute on chronic right upper quadrant abdominal pain secondary to hiatal hernia pain per surgeon. Hiatal hernia surgery is planned for Saturday. 3. History of irritable bowel syndrome. 4. Diabetes mellitus. 5. Hypertension. Continue current medications. Surgery on Saturday for hiatal hernia surgery. Will do an EKG preop. MMODL / IJN: [id number] /
[2017-06-24] MEDS: HEPARIN SODIUM,PORCINE 5,000 UNIT/ML 1 ML VIAL SQ SCH (15:50)
[2017-06-24 16:50] LABS: Glucose,Whole Blood 92 mg/dL (75-99)
[2017-06-24] MEDS: DEXTROSE 5%-0.45% NACL 1,000 ML IV SCH (16:53)
[2017-06-24 20:29] LABS: Glucose,Whole Blood 91 mg/dL (75-99)
[2017-06-24] MEDS: ATORVASTATIN 10 MG TAB PO SCH (21:53)
[2017-06-24] MEDS: DONEPEZIL 10 MG TAB PO SCH (21:53)
[2017-06-24] MEDS: FAMOTIDINE 20 MG TAB PO SCH (21:54)
[2017-06-25] MEDS: HYDROmorphone 2 MG/ML 1 ML SYRINGE IV PRN ×2 (00:01→17:22)
[2017-06-25] MEDS: HEPARIN SODIUM,PORCINE 5,000 UNIT/ML 1 ML VIAL SQ SCH ×4 (00:02→23:57)
[2017-06-25 06:58] LABS: Glucose,Whole Blood 103 mg/dL (75-99)
[2017-06-25] MEDS: DEXTROSE 5%-0.45% NACL 1,000 ML IV SCH ×2 (07:30→22:20)
[2017-06-25] MEDS: INSULIN ASPART 100 UNIT/ML 1 ML 10 ML VIAL SQ SCH ×4 (07:31→20:40)
--- NOTE | 2017-06-25 07:56 | P.PN ---
Progress Note - Text Progress Note Date: 06/24/17 The patient is scheduled undergo repair of hiatal hernia on Saturday, 2017. She'll undergo EGD on 06/25/2017.
[2017-06-25] MEDS: metFORMIN 500 MG TAB PO SCH (08:11)
[2017-06-25] MEDS: GABAPENTIN 300 MG CAP PO SCH ×4 (08:12→20:44)
[2017-06-25] MEDS: LISINOPRIL 5 MG TAB PO SCH (08:12)
[2017-06-25] MEDS: DICYCLOMINE 10 MG CAP PO SCH ×4 (08:12→20:44)
[2017-06-25] MEDS: ALPRAZolam 0.5 MG TAB PO SCH ×2 (08:12→22:18)
[2017-06-25] MEDS: amLODIPine 5 MG TAB PO SCH (08:12)
[2017-06-25 08:22] LABS: ALT 29 U/L (9-52); AST 14 U/L (14-36); Albumin 2.4 g/dL (3.5-5.0); Alkaline Phosphatase 66 U/L (38-126); Anion Gap 6 mmol/L; Blood Urea Nitrogen 9 mg/dL (7-17); Calcium 8.6 mg/dL (8.4-10.2); Carbon Dioxide 26 mmol/L (22-30); Chloride 107 mmol/L (98-107); Glucose 97 mg/dL (74-99); Potassium 4.2 mmol/L (3.5-5.1); Sodium 139 mmol/L (137-145); Total Bilirubin 0.1 mg/dL (0.2-1.3); Total Protein 4.6 g/dL (6.3-8.2)
[2017-06-25] MEDS ORDERED: LIDOCAINE 1% INJ 10MG/ML (20 ML MDV) ONE (09:30)
[2017-06-25] MEDS ORDERED: PROPOFOL 10 MG/ML 20 ML VIAL IV ONE (09:30)
[2017-06-25] MEDS ORDERED: IV FLUID CONTINUATION 1,000 ML IV ONE (09:30)
--- NOTE | 2017-06-25 09:48 | P.OP ---
Date of Procedure: 06/25/17 Preoperative Diagnosis: GERD Postoperative Diagnosis: Large paraesophageal hiatal hernia with evidence of esophagitis and gastritis Procedure(s) Performed: EGD Anesthesia: MAC Surgeon: Cirilo Guzman Pathology: other (Antrum, stomach) Condition: stable Disposition: PACU Description of Procedure: The patient's placed on the endoscopy table in the lateral position. She received IV sedation. The gastroscope placed oropharynx and passed into the esophagus and stomach. The scope was then placed through the pylorus. The first and second portion of the duodenum appeared normal. Scope was then brought back the antrum and this appeared normal. Scope was unretroflexed patient had a large paraesophageal hiatal hernia. There is evidence of inflammation of the stomach within the hiatal hernia this area is biopsied. The GE junction was at 38 cm. The distal esophagus was inflamed this area is biopsied as well. The proximal esophagus appeared normal. Scope was withdrawn for patient.
[2017-06-25 11:38] LABS: Glucose,Whole Blood 97 mg/dL (75-99)
[2017-06-25] MEDS: HYDROcodone/APAP 5-325MG 1 EACH TAB PO PRN ×2 (12:01→20:43)
[2017-06-25 16:50] LABS: Glucose,Whole Blood 73 mg/dL (75-99)
[2017-06-25 20:08] LABS: Glucose,Whole Blood 114 mg/dL (75-99)
[2017-06-25] MEDS: DONEPEZIL 10 MG TAB PO SCH (20:43)
[2017-06-25] MEDS: FAMOTIDINE 20 MG TAB PO SCH (20:44)
[2017-06-25] MEDS: ATORVASTATIN 10 MG TAB PO SCH (20:44)
[2017-06-26] MEDS: HYDROmorphone 2 MG/ML 1 ML SYRINGE IV PRN ×3 (01:01→13:33)
[2017-06-26 06:53] LABS: Glucose,Whole Blood 95 mg/dL (75-99)
--- NOTE | 2017-06-26 06:54 | PN ---
PROGRESS NOTE SUBJECTIVE: This is an 82-year-old white female with diverticulitis and GERD with significant diaphragmatic hernia awaiting Mason procedure in the morning. She is clinically stable for . CARDIOVASCULAR: S1, S2. LUNGS: Clear. GI: Soft, tender to palpation in left lower quadrant. Right flank pain is resolved. PSYCH: Fair mood and affect. ASSESSMENT: 1. Acute diverticulitis. 2. Severe gastroesophageal reflux disease. 3. Diaphragmatic hernia. 4. Hypertension. 5. Coronary artery disease. 6. Hypothyroid. 7. Diabetes. Patient is stable for surgery in the morning. Await current treatment with Dr. Guzman. MMODL / IJN: [id number] /
[2017-06-26 07:14] LABS: Basophils % (A) 0 %; Eosinophils # (A) 0.3 k/uL (0-0.7); Eosinophils % (A) 3 %; HCT 38.5 % (34.0-46.0); HGB 11.6 gm/dL (11.4-16.0); Hypochromasia Slight; Lymphocytes # (A) 1.9 k/uL (1.0-4.8); Lymphocytes % (A) 19 %; MCH 26.8 pg (25.0-35.0); MCHC 30.2 g/dL (31.0-37.0); MCV 88.9 fL (80.0-100.0); Mean Platelet Volume 7.1; Monocytes # (A) 0.6 k/uL (0-1.0); Monocytes % (A) 5 %; Neutrophils # (A) 7.5 k/uL (1.3-7.7); Neutrophils % (A) 71 %; Platelet Count 219 k/uL (150-450); RBC 4.34 m/uL (3.80-5.40); RDW 15.9 % (11.5-15.5); WBC 10.5 k/uL (3.8-10.6)
[2017-06-26 07:18] LABS: Prothrombin Time 10.1 sec (9.0-12.0)
[2017-06-26 07:26] LABS: ALT 31 U/L (9-52); AST 15 U/L (14-36); Albumin 2.9 g/dL (3.5-5.0); Alkaline Phosphatase 63 U/L (38-126); Anion Gap 8 mmol/L; Blood Urea Nitrogen 6 mg/dL (7-17); Calcium 8.5 mg/dL (8.4-10.2); Carbon Dioxide 26 mmol/L (22-30); Chloride 106 mmol/L (98-107); Glucose 88 mg/dL (74-99); Sodium 140 mmol/L (137-145); Total Bilirubin 0.3 mg/dL (0.2-1.3); Total Protein 5.3 g/dL (6.3-8.2)
[2017-06-26] MEDS: INSULIN ASPART 100 UNIT/ML 1 ML 10 ML VIAL SQ SCH ×4 (07:49→22:58)
[2017-06-26] MEDS: HEPARIN SODIUM,PORCINE 5,000 UNIT/ML 1 ML VIAL SQ SCH ×2 (09:03→15:38)
[2017-06-26] MEDS: GABAPENTIN 300 MG CAP PO SCH ×4 (09:05→22:21)
[2017-06-26] MEDS: ALPRAZolam 0.5 MG TAB PO SCH ×2 (09:05→22:06)
[2017-06-26] MEDS: amLODIPine 5 MG TAB PO SCH (09:13)
[2017-06-26] MEDS: DEXTROSE 5%-0.45% NACL 1,000 ML IV SCH (09:15)
[2017-06-26] MEDS: DICYCLOMINE 10 MG CAP PO SCH ×4 (10:54→22:21)
[2017-06-26 11:09] LABS: Glucose,Whole Blood 91 mg/dL (75-99)
--- NOTE | 2017-06-26 12:12 | P.PN ---
Subjective Progress Note Date: 06/26/17 82-year-old female sitting up in a chair is aware the plan of care. Is scheduled today for laparoscopic hiatal hernia repair today family at bedside Objective - Vital Signs Vital signs: Vital Signs Temp 98.8 F 06/26/17 08:09 Pulse 72 06/26/17 08:09 Resp 16 06/26/17 08:09 BP 131/67 06/26/17 08:09 Pulse Ox 95 06/26/17 08:09 Intake & Output 06/25/17 06/26/17 06/26/17 18:59 06:59 18:59 Intake Total 50 925 Balance 50 925 Intake: IV 50 675 Dextrose 5%-0.45% NaCl 1, 675 000 ml @ 75 mls/hr IV . [id number] [facility] Rx#:[id number] Oral 250 Other: Voiding Method Toilet Toilet Toilet # Voids 3 1 2 - Exam physical exam 82-year-old female alert oriented 3 sitting in a chair Lungs adequate air movement bilaterally Heart S1-S2 audible regular Abdomen slight tenderness to the bilateral lower quadrants bowel tones present no nausea no vomiting tolerating diet Extremities trace pedal edema bilaterally - Labs CBC & Chem 7: 06/26/17 06:37 06/26/17 06:49 Labs: Abnormal Lab Results - Last 24 Hours (Table) 06/25/17 06/25/17 06/26/17 Range/Units 16:48 20:07 06:37 MCHC 30.2 L (31.0-37.0) g/dL RDW 15.9 H (11.5-15.5) % BUN (7-17) mg/dL POC Glucose (mg/dL) 73 L 114 H (75-99) mg/dL Total Protein (6.3-8.2) g/dL Albumin (3.5-5.0) g/dL 06/26/17 Range/Units 06:49 MCHC (31.0-37.0) g/dL RDW (11.5-15.5) % BUN 6 L (7-17) mg/dL POC Glucose (mg/dL) (75-99) mg/dL Total Protein 5.3 L (6.3-8.2) g/dL Albumin 2.9 L (3.5-5.0) g/dL Assessment and Plan Assessment: impression Present on admission nausea vomitingsuspect due to large hiatal hernia History of chronic diverticulitis scheduled for a low anterior resection July 02 History of a large hiatal hernia computed tomography scan abdomen shows diverticulosis of the left colon and a large hiatal hernia Status post EGD June 25 large paraesophageal hiatal hernia with evidence of esophagitis and gastritis Plan Scheduled today for repair of a hiatal hernia Aspiration precautions Low anterior colon resection to be done timing to be determined possible this admission done DVT and GI prophylaxis will need medical clearance prior to proceeding with surgical procedure The above impression and plan of care have been discussed and directed by signing physician. Lori Wilkins nurse practitioner acting as scribe for signing physician.
[2017-06-26] MEDS: ONDANSETRON 4 MG/2 ML VIAL IVP PRN ×2 (13:39→18:53)
[2017-06-26] MEDS: LISINOPRIL 5 MG TAB PO SCH (14:49)
[2017-06-26] MEDS ORDERED: IV FLUID CONTINUATION 1,000 ML IV ONE (15:41)
[2017-06-26] MEDS ORDERED: LACTATED RINGERS 1,000 ML IV ONE ×3 (15:45→17:25)
[2017-06-26] MEDS ORDERED: NEOSTIGMINE 1 MG/ML 10 ML VIAL ONE (15:48)
[2017-06-26] MEDS ORDERED: GLYCOPYRROLATE 0.2 MG/ML 2 ML VIAL ONE (15:48)
[2017-06-26] MEDS ORDERED: LIDOCAINE 1% INJ 10MG/ML (20 ML MDV) ONE (15:48)
[2017-06-26] MEDS ORDERED: PROPOFOL 10 MG/ML 20 ML VIAL IV ONE (15:48)
[2017-06-26] MEDS ORDERED: MIDAZOLAM 2 MG/2 ML VIAL ONE (15:48)
[2017-06-26] MEDS ORDERED: PHENYLEPHRINE-0.9% NACL SYG 1 MG/10 ML SYRINGE ONE (15:48)
[2017-06-26] MEDS ORDERED: fentaNYL (PF) 50 MCG/ML 2 ML AMP ONE ×2 (15:48)
[2017-06-26] MEDS ORDERED: SUCCINYLCHOLINE CHLORIDE 100 MG/5 ML SYR IV ONE ×2 (15:48)
[2017-06-26] MEDS ORDERED: ROCURONIUM BROMIDE 10 MG/ML 10 ML VIAL IV ONE ×2 (15:48)
[2017-06-26] MEDS ORDERED: BUPIVACAINE-EPI 0.5%-1:200,000 10 ML VIAL SQ ONE (16:19)
--- NOTE | 2017-06-26 16:58 | P.OP ---
Date of Procedure: 06/26/17 Preoperative Diagnosis: GERD Dysphagia Postoperative Diagnosis: Large hiatal hernia Procedure(s) Performed: Laparoscopic repair of large paraesophageal hiatal hernia with mesh Anesthesia: ELVIA Surgeon: Cirilo Guzman Estimated Blood Loss (ml): 5 Pathology: none sent Condition: stable Disposition: PACU Description of Procedure: The patient was placed on the operating table in the supine position. The patient received general anesthesia. And was placed in dorsal lithotomy position. The patient was prepped and draped in the usual sterile fashion. The skin incision sites were anesthetized with 1% local Xylocaine. The skin was incised in the left periumbilical area and then using a blade less 5 mm trocar under direct visualization panel cavity was entered. After adequate insufflation the laparoscope was then placed into the peritoneal cavity. Next a 5 mm trochars placed in the right epigastric position. Another 5 millimeter trocar the right lateral position. Another 5 millimeter trocar in the left lateral position a 5 mm trocar is placed in the left epigastric position. And then the initial 5 mm trocar was exchanged for a 10 mm trocar. The left lateral lobe liver was retracted. The hernia was seen. The crural defect was then dissected using the Harmonic scissors device. A 360 crural dissection was performed the esophagus stomach was reduced back into the peritoneal Cavity. The crural defect was then closed using 2-0 Ethibond suture. Next the fundus of the stomach was mobilized using the Harmonic scissors device. and then a 58-Spanish bougie dilator was placed oropharynx passed into the esophagus and stomach the 180 fundal plication wrap was then performed by grasping the fundus posteriorly and bringing it around the esophagus and stomach fundoplication was then performed using 2-0 Ethibond suture. Care was taken that the fundal location rested over top of the intra-abdominal esophagus. There was no injury seen to the stomach or esophagus. Next a piece of [place] [employer] a mesh was placed into the. Cavity. The mesh was secured to the diaphragm using 2-0 Ethibond suture in the timeout device. The dilator was then withdrawn. The abdomen was irrigated there is no bleeding seen. The trochars were then withdrawn and then skin incision sites were closed using 3-0 Monocryl suture Steri-Strips are applied. Patient thought procedure well and sent to recovery room in stable condition.
[2017-06-26] MEDS: metFORMIN 500 MG TAB PO SCH (18:11)
[2017-06-26 18:13] VITALS: RESP 16
[2017-06-26 18:15] LABS: Glucose,Whole Blood 135 mg/dL (75-99)
[2017-06-26] MEDS: MUPIROCIN 2% OINT 22 GM TUBE TOPICAL SCH ×2 (18:58→22:05)
[2017-06-26 20:55] LABS: Basophils % (A) 0 %; Eosinophils # (A) 0.1 k/uL (0-0.7); Eosinophils % (A) 1 %; HCT 35.7 % (34.0-46.0); HGB 11.5 gm/dL (11.4-16.0); Lymphocytes # (A) 0.9 k/uL (1.0-4.8); Lymphocytes % (A) 7 %; MCH 27.7 pg (25.0-35.0); MCHC 32.2 g/dL (31.0-37.0); MCV 86.2 fL (80.0-100.0); Mean Platelet Volume 7.6; Monocytes # (A) 0.7 k/uL (0-1.0); Monocytes % (A) 5 %; Neutrophils # (A) 11.8 k/uL (1.3-7.7); Neutrophils % (A) 86 %; Platelet Count 141 k/uL (150-450); RBC 4.14 m/uL (3.80-5.40); RDW 14.5 % (11.5-15.5); WBC 13.8 k/uL (3.8-10.6)
[2017-06-26] MEDS: FAMOTIDINE 20 MG/2 ML VIAL IV SCH (22:05)
[2017-06-26] MEDS: D5-0.45% NACL WITH KCL 20MEQ/L 1,000 ML IV SCH (22:06)
[2017-06-26] MEDS: ATORVASTATIN 10 MG TAB PO SCH (22:07)
[2017-06-26] MEDS: DONEPEZIL 10 MG TAB PO SCH (22:07)
[2017-06-26] MEDS: HYDROmorphone 2 MG/ML 1 ML SYRINGE IVP PRN (22:20)
[2017-06-26 22:23] LABS: Glucose,Whole Blood 163 mg/dL (75-99)
--- NOTE | 2017-06-26 23:15 | PN ---
PROGRESS NOTE SUBJECTIVE: An 82-year-old white female with diverticulitis and hiatal hernia. Surgery is scheduled for today, actually. She is having no chest pain, shortness of breath. No lightheadedness, dizziness, syncope. CARDIOVASCULAR: S1, S2. LUNGS: Transmitted upper airway sounds. GI: Soft. HEMATOLOGY: Negative Homans'. ASSESSMENT: 1. Preoperative hiatal hernia surgery, Mason procedure. 2. Diverticulosis, diverticulitis. 3. Acute abdominal pain secondary to above. 4. Hypertension. 5. Coronary disease. 6. Hypothyroidism. Continue current treatment. Possible discharge home in 24-48 hours after surgery of Mason. MMODL / IJN: [id number] /
[2017-06-27] MEDS: HYDROmorphone 2 MG/ML 1 ML SYRINGE IVP PRN (04:27)
[2017-06-27] MEDS: D5-0.45% NACL WITH KCL 20MEQ/L 1,000 ML IV SCH ×4 (04:54→21:10)
[2017-06-27 07:28] LABS: Glucose,Whole Blood 123 mg/dL (75-99)
[2017-06-27] MEDS: INSULIN ASPART 100 UNIT/ML 1 ML 10 ML VIAL SQ SCH ×4 (07:34→20:55)
[2017-06-27] MEDS: ONDANSETRON 4 MG/2 ML VIAL IVP PRN (07:58)
--- NOTE | 2017-06-27 08:15 | P.PN ---
<Lori Wilkins - Last Filed: 06/27/17 08:10> Subjective Progress Note Date: 06/27/17 82-year-old female seen and examined sitting up in a chair states has dry heaves is not actively having any emesis patient is status post June 27 laparoscopic repair of a large paraesophageal hiatal hernia with mesh Objective - Vital Signs Vital signs: Vital Signs Temp 98.1 F 06/27/17 07:27 Pulse 71 06/27/17 01:20 Resp 16 06/27/17 07:27 BP 145/73 06/27/17 07:27 Pulse Ox 96 06/27/17 07:43 Intake & Output 06/26/17 06/27/17 06/27/17 18:59 06:59 18:59 Intake Total 2875 Output Total 380 Balance 2495 Intake: IV 2875 Dextrose 5%-0.45% NaCl 1, 1200 000 ml @ 75 mls/hr IV . [id number] [facility] Rx#:[id number] Output: Urine 375 Estimated Blood Loss 5 Other: Voiding Method Toilet Toilet # Voids 2 1 1 - Exam Physical exam 82-year-old female sitting up in a chair oriented 3 reports having a nausea sensation no active emesis Lungs adequate air movement bilaterally on room air Heart S1-S2 audible regular Abdomen surgical sites dressings dry soft denies tenderness nondistended reports nausea sensation no active emesis Extremities no edema - Labs CBC & Chem 7: 06/26/17 20:29 06/26/17 06:49 Labs: Abnormal Lab Results - Last 24 Hours (Table) 06/26/17 06/26/17 06/26/17 Range/Units 18:06 20:29 22:20 WBC 13.8 H (3.8-10.6) k/uL Plt Count 141 L (150-450) k/uL Neutrophils # 11.8 H (1.3-7.7) k/uL Lymphocytes # 0.9 L (1.0-4.8) k/uL POC Glucose (mg/dL) 135 H 163 H (75-99) mg/dL 06/27/17 Range/Units 07:26 WBC (3.8-10.6) k/uL Plt Count (150-450) k/uL Neutrophils # (1.3-7.7) k/uL Lymphocytes # (1.0-4.8) k/uL POC Glucose (mg/dL) 123 H (75-99) mg/dL Assessment and Plan Assessment: impression Present on admission nausea vomitingsuspect due to large hiatal hernia History of chronic diverticulitis scheduled for a low anterior resection July 02 History of a large hiatal hernia computed tomography scan abdomen shows diverticulosis of the left colon and a large hiatal hernia Status post EGD June 25 large paraesophageal hiatal hernia with evidence of esophagitis and gastritis Plan Follow-up on pending fl esophagus cevric/pharynx Aspiration precautions Low anterior colon resection to be done timing to be determined possible this admission done DVT and GI prophylaxis The above impression and plan of care have been discussed and directed by signing physician. Lori Wilkins nurse practitioner acting as scribe for signing physician. <Cirilo Guzman - Last Filed: 06/27/17 17:25> Objective - Vital Signs Vital signs: Vital Signs Temp 98.1 F 06/27/17 15:05 Pulse 70 06/27/17 15:05 Resp 16 06/27/17 15:05 BP 116/68 06/27/17 15:05 Pulse Ox 94 L 06/27/17 15:05 Intake & Output 06/26/17 06/27/17 06/27/17 18:59 06:59 18:59 Intake Total 2875 0 Output Total 380 Balance 2495 0 Weight 83.007 kg Intake: IV 2875 Dextrose 5%-0.45% NaCl 1, 1200 000 ml @ 75 mls/hr IV . [id number] [facility] Rx#:[id number] Oral 0 Output: Urine 375 Estimated Blood Loss 5 Other: Voiding Method Toilet Toilet Toilet # Voids 2 1 1 - Labs CBC & Chem 7: 06/26/17 20:29 06/26/17 06:49 Labs: Abnormal Lab Results - Last 24 Hours (Table) 06/26/17 06/26/17 06/26/17 Range/Units 18:06 20:29 22:20 WBC 13.8 H (3.8-10.6) k/uL Plt Count 141 L (150-450) k/uL Neutrophils # 11.8 H (1.3-7.7) k/uL Lymphocytes # 0.9 L (1.0-4.8) k/uL POC Glucose (mg/dL) 135 H 163 H (75-99) mg/dL 06/27/17 06/27/17 06/27/17 Range/Units 07:26 10:59 16:47 WBC (3.8-10.6) k/uL Plt Count (150-450) k/uL Neutrophils # (1.3-7.7) k/uL Lymphocytes # (1.0-4.8) k/uL POC Glucose (mg/dL) 123 H 147 H 125 H (75-99) mg/dL Assessment and Plan Plan: The patient underwent esophagram. She is no evidence of leak or obstruction. Patient started on full liquid diet. Hopefully be discharged home in the a.m.
[2017-06-27] MEDS ORDERED: HYDROmorphone 2 MG/ML 1 ML SYRINGE IVP PRN (09:54)
[2017-06-27] MEDS: HYDROcodone/APAP 15 ML SOLUTION PO PRN ×2 (10:05→17:43)
[2017-06-27] MEDS: metFORMIN 500 MG TAB PO SCH (10:08)
[2017-06-27] MEDS: ENOXAPARIN 40 MG/0.4 ML SYRINGE SQ SCH (10:11)
[2017-06-27] MEDS: MUPIROCIN 2% OINT 22 GM TUBE TOPICAL SCH ×3 (10:14→21:11)
[2017-06-27 11:05] LABS: Glucose,Whole Blood 147 mg/dL (75-99)
[2017-06-27] MEDS: amLODIPine 5 MG TAB PO SCH ×2 (11:24→13:08)
[2017-06-27] MEDS: ALPRAZolam 0.5 MG TAB PO SCH ×3 (11:24→20:55)
[2017-06-27] MEDS: DICYCLOMINE 10 MG CAP PO SCH ×4 (11:25→21:11)
[2017-06-27] MEDS: GABAPENTIN 300 MG CAP PO SCH ×4 (11:25→21:11)
[2017-06-27] MEDS: FAMOTIDINE 20 MG/2 ML VIAL IV SCH ×2 (11:25→20:54)
[2017-06-27] MEDS: LISINOPRIL 5 MG TAB PO SCH ×2 (11:26→13:08)
[2017-06-27 14:13] VITALS: BMI 31.4
--- NOTE | 2017-06-27 14:13 | FL ---
Single contrast esophagram EXAMINATION TYPE: FL esophagus cervic/pharynx DATE OF EXAM: 06/27/2017 2:02 PM COMPARISON: NONE CLINICAL HISTORY: Status post Sarthak fundoplication post rolf, 17 sec fluoro, 50cc omnipaque 350 utilized . 5 images submitted. The patient ingested contrast without difficulty or delay. Noted are changes of Sarthak fundoplicatio n. There is no evidence for leak or obstruction. Small amount of residual contrast within the distal esophagus. IMPRESSION: Post-surgical change of Sarthak fundoplication without evidence for leak or obstruction.
[2017-06-27 16:50] LABS: Glucose,Whole Blood 125 mg/dL (75-99)
[2017-06-27 20:02] LABS: Glucose,Whole Blood 115 mg/dL (75-99)
[2017-06-27] MEDS: DONEPEZIL 10 MG TAB PO SCH (20:55)
[2017-06-27] MEDS: ATORVASTATIN 10 MG TAB PO SCH (20:55)
--- NOTE | 2017-06-27 22:25 | PN ---
PROGRESS NOTE SUBJECTIVE: An 82-year-old white female with diverticulitis, status post Mason procedure. She is up in the chair. She does have cough, congestion and emesis, status post surgery. Awaiting fluoroscopy this morning to see if there is any obstruction. CARDIOVASCULAR: S1, S2. Lungs are clear. GI is soft. HEMATOLOGY: Negative Homans'. ASSESSMENT: 1. Status post Mason procedure. 2. Diverticulitis, chronic with diverticulosis. 3. Hypertension. 4. Hypothyroidism. 5. Obesity. Continue with current treatment. Await fluoroscopy. Anti-nausea medicines will be given. Clear liquid diet will be started at this time. MMODL / IJN: [id number] /
[2017-06-28] MEDS: D5-0.45% NACL WITH KCL 20MEQ/L 1,000 ML IV SCH ×2 (04:53→09:19)
[2017-06-28 07:11] LABS: Glucose,Whole Blood 98 mg/dL (75-99)
[2017-06-28 07:53] VITALS: BP 114/73; PULSE 75; TEMP 98.5
[2017-06-28] MEDS: INSULIN ASPART 100 UNIT/ML 1 ML 10 ML VIAL SQ SCH ×2 (07:53→12:30)
--- NOTE | 2017-06-28 08:17 | P.PN ---
Progress Note - Text Progress Note Date: 06/28/17 Pleasant 82-year-old female sitting up in a chair states is anxious to be discharged home. Surgical sites no redness. From a surgical perspective patient is felt to be surgically stable and appropriate to proceed with a discharge defer to the timing of the discharge to the attending will follow- up in the outpatient setting as directed The above impression and plan of care have been discussed and directed by signing physician. Lori Wilkins nurse practitioner acting as scribe for signing physician.
[2017-06-28] MEDS: metFORMIN 500 MG TAB PO SCH (08:18)
[2017-06-28] MEDS: ENOXAPARIN 40 MG/0.4 ML SYRINGE SQ SCH (08:22)
[2017-06-28] MEDS: ALPRAZolam 0.5 MG TAB PO SCH (08:22)
[2017-06-28] MEDS: FAMOTIDINE 20 MG/2 ML VIAL IV SCH (08:22)
[2017-06-28] MEDS: DICYCLOMINE 10 MG CAP PO SCH ×2 (08:22→12:29)
[2017-06-28] MEDS: GABAPENTIN 300 MG CAP PO SCH ×2 (08:22→12:30)
[2017-06-28] MEDS: amLODIPine 5 MG TAB PO SCH (08:23)
[2017-06-28] MEDS: LISINOPRIL 5 MG TAB PO SCH (08:23)
[2017-06-28] MEDS: MUPIROCIN 2% OINT 22 GM TUBE TOPICAL SCH (08:23)
[2017-06-28] MEDS: HYDROcodone/APAP 5-325MG 1 EACH TAB PO PRN ×2 (08:29→12:29)
[2017-06-28 11:10] LABS: Glucose,Whole Blood 103 mg/dL (75-99)
--- NOTE | 2017-08-05 00:37 | DS ---
DISCHARGE SUMMARY ADMITTED: 07/09/2017. DISCHARGE: 06/28/2017. DISCHARGE MEDICATIONS: 1. Zocor 20 mg daily. 2. Gabapentin 600 daily. 3. Prinivil 10 mg daily. 4. Aricept 10 mg daily. 5. Gas-X daily. 6. Zofran 4 mg q.12 hours p.r.n. 7. Amlodipine 10 mg daily. 8. Bentyl 10 mg q.i.d. 9. Glucophage 500 a.c. breakfast. 10.Xanax 0.5 b.i.d. 11.Omeprazole 40 mg daily. 12.Levaquin 500 mg daily. She had a large paraesophageal hiatal hernia repair with mesh. She is status post Mason procedure with acute abdominal pain, diverticulitis, hypertension, hypothyroidism, obesity. Fluoroscopy was done and clearance by surgery was done. VIKTOR / SUMA: [id number] /
== END 2017-06-28 14:25 | disposition home or self-care (01) | DRG 327 ==
LOC: EC 12:14 → 3SUR 17:39
PROVIDERS: ADMIT Student in an Organized Health Care Education/Training Program; ATTEND Family Medicine
PROC: 0DB68ZX Excision of Stomach, Via Natural or Artificial Opening Endoscopic, Diagnostic (ICD-10-PCS; 2017-06-25)
PROC: 0DV44ZZ Restriction of Esophagogastric Junction, Percutaneous Endoscopic Approach (ICD-10-PCS; 2017-06-26)
PROC: 0BUT4JZ Supplement Diaphragm with Synthetic Substitute, Percutaneous Endoscopic Approach (ICD-10-PCS; principal; 2017-06-26 15:15)
DX: K44.9 Diaphragmatic hernia without obstruction or gangrene (principal); K57.32 Diverticulitis of large intestine without perforation or abscess without bleeding; N17.9 Acute kidney failure, unspecified; E88.09 Other disorders of plasma-protein metabolism, not elsewhere classified; E11.22 Type 2 diabetes mellitus with diabetic chronic kidney disease; E66.9 Obesity, unspecified; Z68.31 Body mass index [BMI] 31.0-31.9, adult; R13.10 Dysphagia, unspecified; K29.70 Gastritis, unspecified, without bleeding; K21.0 Gastro-esophageal reflux disease with esophagitis; E03.9 Hypothyroidism, unspecified; G89.29 Other chronic pain; I12.9 Hypertensive chronic kidney disease with stage 1 through stage 4 chronic kidney disease, or unspecified chronic kidney disease; N18.9 Chronic kidney disease, unspecified; I25.10 Atherosclerotic heart disease of native coronary artery without angina pectoris; K58.9 Irritable bowel syndrome, unspecified; Z79.84 Long term (current) use of oral hypoglycemic drugs; Z79.899 Other long term (current) drug therapy; Z90.49 Acquired absence of other specified parts of digestive tract; Z87.891 Personal history of nicotine dependence; Z88.5 Allergy status to narcotic agent; Z88.2 Allergy status to sulfonamides
CPT/HCPCS: 36415; 43239; 74176; 74210; 80053; 83036; 83690; 85025; 85610; 88305; 88312; 88342; 93005; 94760; 96361; 96374; 96375; 99285

== ENCOUNTER 2017-07-01 21:03 | Inpatient (IN) | payer MEDICARE ==
[2017-07-01] MEDS ORDERED: IPRATROPIUM-ALBUTEROL 3 ML NEB INHALATION STA (21:22)
[2017-07-01] MEDS ORDERED: SODIUM CHLORIDE 0.9% 500 ML IV STA (21:22)
[2017-07-01] MEDS ORDERED: SODIUM CHLORIDE 0.9% 1,000 ML IV STA ×2 (21:22)
[2017-07-01] MEDS ORDERED: RX INFO: IV CONTRAST WAS GIVEN 1 EACH MISC MISCELLANE PRN (21:23)
[2017-07-01] MEDS ORDERED: IBUPROFEN 600 MG TAB PO STA (21:23)
[2017-07-01] MEDS ORDERED: ACETAMINOPHEN IV (For NPO) 1,000 MG in EMPTY BAG 1 BAG IVPB STA (21:27)
--- NOTE | 2017-07-01 21:40 | ED ---
General Adult HPI - General Chief complaint: Shortness of Breath Stated complaint: back pain/cough/fever-post op Time Seen by Provider: 07/01/17 21:21 Source: patient, RN notes reviewed, old records reviewed Mode of arrival: wheelchair Limitations: no limitations - History of Present Illness Initial comments: This is a 82-year-old female the ER for evaluation of cough congestion shortness of breath and fever. Patient states she is not feeling well. Patient does have recent hospital admission where she had surgery for hiatal hernia. Patient states surgery went well she is healing appropriately. Patient began with fever and off feeling well tonight, positive cough. Patient otherwise denies any complaints no abdominal pain - Related Data Home Medications Medication Instructions Recorded Confirmed Donepezil [Aricept] 10 mg PO HS 06/14/16 07/01/17 Gabapentin 600 mg PO QAM 06/14/16 07/01/17 Lisinopril [Prinivil] 10 mg PO QAM 06/14/16 07/01/17 Simvastatin [Zocor] 20 mg PO HS 06/14/16 07/01/17 ALPRAZolam [Xanax] 0.5 mg PO BID 04/24/17 07/01/17 Dicyclomine [Bentyl] 10 mg PO QID 04/24/17 07/01/17 Ondansetron Odt [Zofran Odt] 4 mg PO Q12HR PRN 04/24/17 07/01/17 Simethicone [Gas-X] 125 mg PO AC-TID PRN 04/24/17 07/01/17 amLODIPine BESYLATE [Norvasc] 10 mg PO DAILY 04/24/17 07/01/17 metFORMIN HCL [Glucophage] 500 mg PO DAILY 04/24/17 07/01/17 Gabapentin 1,200 mg PO HS 06/21/17 07/01/17 Omeprazole 40 mg PO HS 06/21/17 07/01/17 Allergies Allergy/AdvReac Type Severity Reaction Status Date / Time morphine Allergy Itching Verified 07/01/17 22:00 Sulfa (Sulfonamide Allergy Rash/Hives Verified 07/01/17 22:00 Antibiotics) Review of Systems ROS Statement: Those systems with pertinent positive or pertinent negative responses have been documented in the HPI. ROS Other: All systems not noted in ROS Statement are negative. Past Medical History Past Medical History: Hypertension Additional Past Medical History / Comment(s): diverticulitis History of Any Multi-Drug Resistant Organisms: None Reported Past Surgical History: Cholecystectomy, Hernia Repair Additional Past Surgical History / Comment(s): lumpectomy Past Anesthesia/Blood Transfusion Reactions: No Reported Reaction Past Psychological History: No Psychological Hx Reported Smoking Status: Former smoker Past Alcohol Use History: None Reported Past Drug Use History: None Reported - Past Family History Father Family Medical History: Congestive Heart Failure (CHF), COPD Mother Family Medical History: Diabetes Mellitus Additional Family Medical History / Comment(s): of heart attack 92 General Exam Limitations: no limitations General appearance: alert, in no apparent distress Head exam: Present: atraumatic, normocephalic, normal inspection Eye exam: Present: normal appearance, PERRL, EOMI. Absent: scleral icterus, conjunctival injection, periorbital swelling ENT exam: Present: normal exam, mucous membranes moist Neck exam: Present: normal inspection. Absent: tenderness, meningismus, lymphadenopathy Respiratory exam: Present: normal lung sounds bilaterally. Absent: respiratory distress, wheezes, rales, rhonchi, stridor Cardiovascular Exam: Present: regular rate, normal rhythm, normal heart sounds. Absent: systolic murmur, diastolic murmur, rubs, gallop, clicks GI/Abdominal exam: Present: soft, normal bowel sounds. Absent: distended, tenderness, guarding, rebound, rigid Extremities exam: Present: normal inspection, full ROM, normal capillary refill. Absent: tenderness, pedal edema, joint swelling, calf tenderness Back exam: Present: normal inspection Neurological exam: Present: alert, oriented X3, CN II-XII intact Psychiatric exam: Present: normal affect, normal mood Skin exam: Present: warm, dry, intact, normal color. Absent: rash Course Vital Signs 07/01/17 07/01/17 07/01/17 21:13 21:54 22:11 Temperature 101.2 F H 101.4 F H Pulse Rate 89 80 Respiratory 22 Rate Blood Pressure 112/57 O2 Sat by Pulse 90 L Oximetry 07/01/17 07/02/17 22:30 00:33 Temperature 98.3 F Pulse Rate 88 82 Respiratory 18 Rate Blood Pressure 106/53 O2 Sat by Pulse 98 Oximetry - Reevaluation(s) Reevaluation #1: 07/01/17 23:35 Recent hospital admission is reviewed EKG Findings - EKG Comments: EKG Findings:: EKG shows normal sinus at a rate of 75, [place] 162, QRS 72, QTc 470 Medical Decision Making - Medical Decision Making 82 female the ER for evaluation of postop fever, positive influenza B, positive pneumonia. Will be admitted for continued evaluation and treatment, IV antibiotics, breathing treatments. - Lab Data Result diagrams: 07/01/17 21:30 07/01/17 21:30 Lab Results 07/01/17 07/01/17 07/01/17 Range/Units 21:30 21:30 21:30 WBC 9.0 (3.8-10.6) k/uL RBC 4.22 (3.80-5.40) m/uL Hgb 11.8 (11.4-16.0) gm/dL Hct 36.6 (34.0-46.0) % MCV 86.8 (80.0-100.0) fL MCH 27.9 (25.0-35.0) pg MCHC 32.1 (31.0-37.0) g/dL RDW 15.4 (11.5-15.5) % Plt Count 327 D (150-450) k/uL Neutrophils % 67 % Lymphocytes % 17 % Monocytes % 11 % Eosinophils % 1 % Basophils % 1 % Neutrophils # 6.0 (1.3-7.7) k/uL Lymphocytes # 1.5 (1.0-4.8) k/uL Monocytes # 1.0 (0-1.0) k/uL Eosinophils # 0.1 (0-0.7) k/uL Basophils # 0.1 (0-0.2) k/uL PT (9.0-12.0) sec INR (<1.2) APTT (22.0-30.0) sec D-Dimer (<0.60) mg/L FEU Sodium 137 (137-145) mmol/L Potassium 4.4 (3.5-5.1) mmol/L Chloride 99 (98-107) mmol/L Carbon Dioxide 30 (22-30) mmol/L Anion Gap 8 mmol/L BUN 15 (7-17) mg/dL Creatinine 0.80 (0.52-1.04) mg/dL Est GFR (MDRD) Af Amer >60 (>60 ml/min/1.73 sqM) Est GFR (MDRD) Non-Af >60 (>60 ml/min/1.73 sqM) Glucose 99 (74-99) mg/dL Plasma Lactic Acid Hilario (0.7-2.0) mmol/L Calcium 8.5 (8.4-10.2) mg/dL Magnesium 1.8 (1.6-2.3) mg/dL Total Bilirubin 0.4 (0.2-1.3) mg/dL AST 18 (14-36) U/L ALT 33 (9-52) U/L Alkaline Phosphatase 82 (38-126) U/L Total Creatine Kinase 46 (30-135) U/L CK-MB (CK-2) <0.2 (0.0-2.4) ng/mL CK-MB (CK-2) Rel Index Troponin I <0.012 (0.000-0.034) ng/mL NT-Pro-B Natriuret Pep pg/mL Total Protein 5.5 L (6.3-8.2) g/dL Albumin 2.9 L (3.5-5.0) g/dL Urine Color Urine Appearance (Clear) Urine pH (5.0-8.0) Ur Specific [place] (1.001-1.035) Urine Protein (Negative) Urine Glucose (UA) (Negative) Urine Ketones (Negative) Urine Blood (Negative) Urine Nitrite (Negative) Urine Bilirubin (Negative) Urine Urobilinogen (<2.0) mg/dL Ur Leukocyte Esterase (Negative) Urine RBC (0-5) /hpf Urine WBC (0-5) /hpf Ur Squamous Epith Cells (0-4) /hpf Urine Bacteria (None) /hpf Influenza Type A RNA (Not Detectd) Influenza Type B (PCR) (Not Detectd) 07/01/17 07/01/17 07/01/17 Range/Units 21:30 21:30 21:30 WBC (3.8-10.6) k/uL RBC (3.80-5.40) m/uL Hgb (11.4-16.0) gm/dL Hct (34.0-46.0) % MCV (80.0-100.0) fL MCH (25.0-35.0) pg MCHC (31.0-37.0) g/dL RDW (11.5-15.5) % Plt Count (150-450) k/uL Neutrophils % % Lymphocytes % % Monocytes % % Eosinophils % % Basophils % % Neutrophils # (1.3-7.7) k/uL Lymphocytes # (1.0-4.8) k/uL Monocytes # (0-1.0) k/uL Eosinophils # (0-0.7) k/uL Basophils # (0-0.2) k/uL PT 10.1 (9.0-12.0) sec INR 1.0 (<1.2) APTT 23.2 (22.0-30.0) sec D-Dimer 1.17 H (<0.60) mg/L FEU Sodium (137-145) mmol/L Potassium (3.5-5.1) mmol/L Chloride (98-107) mmol/L Carbon Dioxide (22-30) mmol/L Anion Gap mmol/L BUN (7-17) mg/dL Creatinine (0.52-1.04) mg/dL Est GFR (MDRD) Af Amer (>60 ml/min/1.73 sqM) Est GFR (MDRD) Non-Af (>60 ml/min/1.73 sqM) Glucose (74-99) mg/dL Plasma Lactic Acid Hilario 1.3 (0.7-2.0) mmol/L Calcium (8.4-10.2) mg/dL Magnesium (1.6-2.3) mg/dL Total Bilirubin (0.2-1.3) mg/dL AST (14-36) U/L ALT (9-52) U/L Alkaline Phosphatase (38-126) U/L Total Creatine Kinase (30-135) U/L CK-MB (CK-2) (0.0-2.4) ng/mL CK-MB (CK-2) Rel Index Troponin I (0.000-0.034) ng/mL NT-Pro-B Natriuret Pep 393 pg/mL Total Protein (6.3-8.2) g/dL Albumin (3.5-5.0) g/dL Urine Color Urine Appearance (Clear) Urine pH (5.0-8.0) Ur Specific [place] (1.001-1.035) Urine Protein (Negative) Urine Glucose (UA) (Negative) Urine Ketones (Negative) Urine Blood (Negative) Urine Nitrite (Negative) Urine Bilirubin (Negative) Urine Urobilinogen (<2.0) mg/dL Ur Leukocyte Esterase (Negative) Urine RBC (0-5) /hpf Urine WBC (0-5) /hpf Ur Squamous Epith Cells (0-4) /hpf Urine Bacteria (None) /hpf Influenza Type A RNA (Not Detectd) Influenza Type B (PCR) (Not Detectd) 07/01/17 07/01/17 Range/Units 21:30 23:05 WBC (3.8-10.6) k/uL RBC (3.80-5.40) m/uL Hgb (11.4-16.0) gm/dL Hct (34.0-46.0) % MCV (80.0-100.0) fL MCH (25.0-35.0) pg MCHC (31.0-37.0) g/dL RDW (11.5-15.5) % Plt Count (150-450) k/uL Neutrophils % % Lymphocytes % % Monocytes % % Eosinophils % % Basophils % % Neutrophils # (1.3-7.7) k/uL Lymphocytes # (1.0-4.8) k/uL Monocytes # (0-1.0) k/uL Eosinophils # (0-0.7) k/uL Basophils # (0-0.2) k/uL PT (9.0-12.0) sec INR (<1.2) APTT (22.0-30.0) sec D-Dimer (<0.60) mg/L FEU Sodium (137-145) mmol/L Potassium (3.5-5.1) mmol/L Chloride (98-107) mmol/L Carbon Dioxide (22-30) mmol/L Anion Gap mmol/L BUN (7-17) mg/dL Creatinine (0.52-1.04) mg/dL Est GFR (MDRD) Af Amer (>60 ml/min/1.73 sqM) Est GFR (MDRD) Non-Af (>60 ml/min/1.73 sqM) Glucose (74-99) mg/dL Plasma Lactic Acid Hilario (0.7-2.0) mmol/L Calcium (8.4-10.2) mg/dL Magnesium (1.6-2.3) mg/dL Total Bilirubin (0.2-1.3) mg/dL AST (14-36) U/L ALT (9-52) U/L Alkaline Phosphatase (38-126) U/L Total Creatine Kinase (30-135) U/L CK-MB (CK-2) (0.0-2.4) ng/mL CK-MB (CK-2) Rel Index Troponin I (0.000-0.034) ng/mL NT-Pro-B Natriuret Pep pg/mL Total Protein (6.3-8.2) g/dL Albumin (3.5-5.0) g/dL Urine Color Yellow Urine Appearance Clear (Clear) Urine pH 7.0 (5.0-8.0) Ur Specific [place] 1.024 (1.001-1.035) Urine Protein Trace H (Negative) Urine Glucose (UA) Negative (Negative) Urine Ketones Negative (Negative) Urine Blood Moderate H (Negative) Urine Nitrite Negative (Negative) Urine Bilirubin Negative (Negative) Urine Urobilinogen 2.0 (<2.0) mg/dL Ur Leukocyte Esterase Moderate H (Negative) Urine RBC 22 H (0-5) /hpf Urine WBC 34 H (0-5) /hpf Ur Squamous Epith Cells 10 H (0-4) /hpf Urine Bacteria Occasional H (None) /hpf Influenza Type A RNA Not Detected (Not Detectd) Influenza Type B (PCR) Detected H (Not Detectd) - Radiology Data Radiology results: report reviewed (CTA chest and pelvis positive for pneumonia) , image reviewed Critical Care Time Critical Care Time: Yes Total Critical Care Time: 31 Disposition Clinical Impression: Fever, Nosocomial pneumonia, Influenza Disposition: ADMITTED IP TO THIS HOSP Condition: Serious
[2017-07-01 21:58] LABS: ALT 33 U/L (9-52); AST 18 U/L (14-36); Albumin 2.9 g/dL (3.5-5.0); Alkaline Phosphatase 82 U/L (38-126); Anion Gap 8 mmol/L; Blood Urea Nitrogen 15 mg/dL (7-17); Calcium 8.5 mg/dL (8.4-10.2); Carbon Dioxide 30 mmol/L (22-30); Chloride 99 mmol/L (98-107); Glucose 99 mg/dL (74-99); Magnesium 1.8 mg/dL (1.6-2.3); Potassium 4.4 mmol/L (3.5-5.1); Sodium 137 mmol/L (137-145); Total Bilirubin 0.4 mg/dL (0.2-1.3); Total Protein 5.5 g/dL (6.3-8.2)
[2017-07-01 22:06] LABS: D-Dimer 1.17 mg/L FEU (<0.60); Partial Thromboplastin Time 23.2 sec (22.0-30.0); Prothrombin Time 10.1 sec (9.0-12.0)
[2017-07-01 22:07] LABS: Creatine Kinase 46 U/L (30-135)
[2017-07-01 22:10] LABS: Basophils # (A) 0.1 k/uL (0-0.2); Basophils % (A) 1 %; Eosinophils # (A) 0.1 k/uL (0-0.7); Eosinophils % (A) 1 %; HCT 36.6 % (34.0-46.0); HGB 11.8 gm/dL (11.4-16.0); Lymphocytes # (A) 1.5 k/uL (1.0-4.8); Lymphocytes % (A) 17 %; MCH 27.9 pg (25.0-35.0); MCHC 32.1 g/dL (31.0-37.0); MCV 86.8 fL (80.0-100.0); Monocytes % (A) 11 %; Neutrophils % (A) 67 %; RBC 4.22 m/uL (3.80-5.40); RDW 15.4 % (11.5-15.5)
[2017-07-01 22:13] LABS: Platelet Count 327 k/uL (150-450)
[2017-07-01 22:20] LABS: Creatine Kinase MB <0.2 ng/mL (0.0-2.4); Troponin I <0.012 ng/mL (0.000-0.034)
--- NOTE | 2017-07-01 23:06 | CT ---
EXAMINATION TYPE: CT angio chest DATE OF EXAM: 07/01/2017 11:00 PM COMPARISON: NONE HISTORY: SOB CT DLP: 314.1 mGycm Automated exposure control for dose reduction was used. CONTRAST: CTA scan of the thorax is performed with IV Contrast, patient injected with 100 mL of Omnipaque 350, pulmonary embolism protocol. There are 3-D post processed images.. FINDINGS: There is patchy atelectasis at the posterior lung bases. There is small left pleural effusion. There is no pericardial effusion. Heart is enlarged. Thoracic aorta is atheromatous. There is no evidence o f aneurysm or dissection. I see no filling defects in the pulmonary arteries. There are no hilar mass es. There is no mediastinal adenopathy. IMPRESSION: NO EVIDENCE OF PULMONARY EMBOLISM. ATHEROSCLEROTIC VASCULAR DISEASE. CARDIOMEGALY. BASILAR PULMONARY INFILTRATES AND ATELECTASIS. SMALL LEFT PLEURAL EFFUSION.
--- NOTE | 2017-07-01 23:12 | CT ---
EXAMINATION TYPE: CT abdomen pelvis w con DATE OF EXAM: 07/01/2017 COMPARISON: 06/21/2017 HISTORY: Abdominal pain. Recent hernia repair CT DLP: 1792. mGycm Automated exposure control for dose reduction was used. TECHNIQUE: Multiple axial sections were obtained from the diaphragm to the floor the pelvis with int ravenous contrast. CONTRAST: Performed without Oral Contrast and with IV Contrast, patient injected with 100 mL of Omnipaque 350. FINDINGS: There is some infiltrate and atelectasis at the posterior lung bases. There are small pleural effusio ns. Liver shows no focal defect. There are clips from cholecystectomy. Spleen and pancreas appear nor mal. There are clips at the gastroesophageal junction. Bile ducts are not dilated. There is no adrenal mass. Kidneys show satisfactory contrast opacification. There is no hydronephrosi s. There is no retroperitoneal adenopathy. There are numerous diverticula in the colon and more in the sigmoid colon. There is mild fat strandin g around the proximal sigmoid colon. There is small umbilical hernia that contains omental fat. There is no sign of a bowel obstruction. There is some air in the urinary bladder probably from catheteriz ation. There is no evidence of a pelvic mass. There are spondylotic changes in the lumbar spine. IMPRESSION: COLONIC DIVERTICULOSIS. THERE IS EVIDENCE FOR MILD DIVERTICULITIS IN THE PROXIMAL SIGMOID COLON. THIS APPEARS SIMILAR TO LAST EXAM. THERE IS BEEN SURGERY AT THE GASTROESOPHAGEAL JUNCTION COMPARED TO LAS T EXAM. THERE IS DECREASE IN THE HIATAL HERNIA COMPARED TO LAST EXAM. THERE ARE NEW BILATERAL LOWER LOBE PULMONARY INFILTRATES AND ATELECTASIS AND PLEURAL FLUID COMPARED T O LAST EXAM.
[2017-07-01] MEDS ORDERED: LEVOFLOXACIN 750MG-D5W PMX 750 MG in DEXTROSE/WATER 1 150ML.BAG IVPB STA (23:17)
[2017-07-01] MEDS ORDERED: PIPERACILLIN-TAZOBACTAM 3.375 GM in DEXTROSE/WATER 1 50ML.BAG IVPB STA (23:17)
[2017-07-01] MEDS ORDERED: PNEUMONIA PROTOCOL UTILIZED 1 EACH MISC PO PRN (23:17)
[2017-07-01] MEDS ORDERED: OSELTAMIVIR 75 MG CAP PO STA (23:20)
[2017-07-01 23:22] LABS: Appearance,Urine Clear (Clear); Bacteria,Urine Occasional /hpf; Bilirubin,Urine Negative (Negative); Blood,Urine Moderate (Negative); Color,Urine Yellow; Glucose,Urine (UA) Negative (Negative); Ketones,Urine Negative (Negative); Leukocyte Esterase,Urine Moderate (Negative); Nitrite,Urine Negative (Negative); Protein,Urine Trace (Negative); RBC,Urine 22 /hpf (0-5); Specific Gravity,Urine 1.024 (1.001-1.035); Squamous Epithelial Cell,Urine 10 /hpf (0-4); WBC,Urine 34 /hpf (0-5)
[2017-07-01] MEDS ORDERED: LABETALOL 5 MG/ML VIAL MDV IVP STA (23:45)
[2017-07-02] MEDS: PIPERACILLIN-TAZOBACTAM 3.375 GM in DEXTROSE/WATER 1 50ML.BAG IVPB SCH ×3 (03:23→20:59)
[2017-07-02] MEDS: SODIUM CHLORIDE 0.9% 1,000 ML IV SCH ×3 (03:24→20:50)
[2017-07-02] MEDS ORDERED: SIMETHICONE 80 MG CHEWABLE PO PRN (07:27)
[2017-07-02] MEDS ORDERED: ONDANSETRON ODT 4 MG TAB PO PRN (07:27)
[2017-07-02] MEDS ORDERED: HYDROmorphone 2 MG/ML 1 ML SYRINGE IVP PRN (07:40)
[2017-07-02] MEDS: HYDROcodone/APAP 5-325MG 1 EACH TAB PO PRN ×4 (07:56→20:51)
[2017-07-02] MEDS: IPRATROPIUM-ALBUTEROL 3 ML NEB INHALATION PRN ×4 (08:41→19:55)
[2017-07-02] MEDS ORDERED: OSELTAMIVIR 75 MG CAP PO SCH (09:00)
[2017-07-02] MEDS: GABAPENTIN 300 MG CAP PO SCH (09:28)
[2017-07-02] MEDS: LISINOPRIL 10 MG TAB PO SCH (09:28)
[2017-07-02] MEDS: amLODIPine 10 MG TAB PO SCH (09:28)
[2017-07-02] MEDS: metFORMIN 500 MG TAB PO SCH (09:28)
[2017-07-02] MEDS: DICYCLOMINE 10 MG CAP PO SCH ×4 (09:28→20:51)
[2017-07-02] MEDS: ALPRAZolam 0.5 MG TAB PO SCH ×2 (09:32→20:50)
--- NOTE | 2017-07-02 09:45 | HP ---
HISTORY AND PHYSICAL CHIEF COMPLAINT: An 82-year-old white female admitted with shortness of breath, cough, congestion, Positive H influenzae type B with bibasilar pneumonia. HISTORY OF PRESENT ILLNESS: An 82-year-old white female, who just left the hospital with the hiatal hernia Mason procedure surgery a week ago. She got a cough, congestion, shortness of breath at home. She was found to be H influenzae type B with bilateral pneumonia and due to increased respiratory distress, she was admitted to the hospital. CAT scan of the chest was negative for PE. CAT of the abdomen is negative for significant abnormalities. HOME MEDICATIONS: 1. Aricept 10 mg daily. 2. Gabapentin 600 mg q.a.m. 3. Prinivil 10 mg q.a.m.. 4. Zocor 20 q.h.s. 5. Xanax 0.5 mg b.i.d. 6. Bentyl 10 mg q.i.d. 7. Norvasc 10 mg daily. 8. Glucophage 500 mg daily. 9. Gabapentin 1200 mg q.h.s. 10.Omeprazole 40 daily. ALLERGIES: SULFA and MORPHINE. 14 POINT REVIEW OF SYSTEMS: Negative except for mentioned in HPI. PAST MEDICAL HISTORY: Includes diverticulitis, hypertension, cholecystectomy, Mason procedure, lumpectomy. SOCIAL HISTORY: Former smoker. No alcohol. No drugs. FAMILY HISTORY: Father congestive heart failure, COPD. Mom with diabetes mellitus and heart attack x2. PHYSICAL EXAM: She has cough and congested. Some respiratory distress, BMI is over 40 on endocrine exam. HEENT: Normocephalic, atraumatic. OPHTHALMOLOGIC: Pupils equal, round, reactive to light and accommodation. No conjunctival . LUNGS: Show scattered rhonchi and wheeze on inspiratory and expiratory. NECK: Supple, no mass or organomegaly. CARDIOVASCULAR: S1, S2. No murmurs, rubs or gallops. GI: Normal bowel sounds. Distended, obesity. No guarding or rebound. EXTREMITIES: Show 2+ pedal edema. No rash, excoriations, bruising. BACK: Some kyphotic lordotic spine. NEUROLOGIC: Cranial nerves are intact. PSYCH: Fair mood and affect. Skin is warm, dry, intact. No rash. T-max is 101.2, pulse is in the mid 80s, blood pressure 112/57, O2 is 98% on 2 L. CAT scans of the abdomen and chest were reviewed. White count is 9, hemoglobin is 11.8, sodium 137, potassium 4.4, BUN of 15, creatinine is 0.8. Troponin is negative. Albumin is 2.9, D-dimer is 1.17. BNP is 33 93. UA shows moderate leukocyte esterase, 22 red cells, moderate blood in the urine, white cells of 34. ASSESSMENT: 1. Fever, community-acquired pneumonia, H influenzae type B. 2. Urinary tract infection. 3. Diverticulitis. PLAN: IV antibiotics will be given, Tamiflu will be given, steroids will be given. Updraft treatments were given. Pulmonary consult. Prognosis guarded. MMODL / IJN: [id number] /
--- NOTE | 2017-07-02 13:28 | XR ---
EXAMINATION TYPE: XR chest 2V DATE OF EXAM: 07/02/2017 COMPARISON: 06/14/2016 HISTORY: Shortness of breath TECHNIQUE: Frontal and lateral views of the chest are obtained. FINDINGS: Scattered senescent parenchymal changes noted. No evidence for infiltrate. Mild linear atelectasis at the lung bases as well as small pleural effusi ons versus pleural thickening. Heart size is stable. Mediastinal structures are stable and grossly unremarkable. No evidence for hilar prominence. Degenerative changes dorsal spine. IMPRESSION: 1. No evidence for acute pulmonary disease.
--- NOTE | 2017-07-02 14:16 | P.GSCN ---
History of Present Illness Consult date: 07/02/17 History of present illness: 82-year-old female seen at the request of the attending for a surgical eval who had just undergone on jun 26 hiatal hernia Mason procedure and was discharged within the week and return to the emergency room with a chief complaint of shortness of breath feeling congested. Influenza type B positive. CAT scan of the chest was negative for pulmonary emboli. CAT scan of the abdomen and pelvis evidence of mild diverticulitis in the proximal sigmoid colon appears similar to last exam states feeling better less nausea no emesis no stool taking fluids chest xray no acute pulmonary disease in the emergency room temp 101 current temp 96.9. Patient states is feeling better. Review of Systems Essentially unremarkable except as mentioned in the present illness Past Medical History Past Medical History: Diabetes Mellitus, Hypertension Additional Past Medical History / Comment(s): diverticulitis History of Any Multi-Drug Resistant Organisms: None Reported Past Surgical History: Cholecystectomy, Hernia Repair Additional Past Surgical History / Comment(s): lumpectomy; hernia sx 06-27-17 Past Anesthesia/Blood Transfusion Reactions: No Reported Reaction Past Psychological History: No Psychological Hx Reported Smoking Status: Former smoker Past Alcohol Use History: None Reported Past Drug Use History: None Reported - Past Family History Father Family Medical History: Congestive Heart Failure (CHF), COPD Mother Family Medical History: Diabetes Mellitus Additional Family Medical History / Comment(s): of heart attack 92 Medications and Allergies Home Medications Medication Instructions Recorded Confirmed Type Donepezil [Aricept] 10 mg PO HS 06/14/16 07/01/17 History Gabapentin 600 mg PO QAM 06/14/16 07/01/17 History Lisinopril [Prinivil] 10 mg PO QAM 06/14/16 07/01/17 History Simvastatin [Zocor] 20 mg PO HS 06/14/16 07/01/17 History ALPRAZolam [Xanax] 0.5 mg PO BID 04/24/17 07/01/17 History Dicyclomine [Bentyl] 10 mg PO QID 04/24/17 07/01/17 History Ondansetron Odt [Zofran Odt] 4 mg PO Q12HR PRN 04/24/17 07/01/17 History Simethicone [Gas-X] 125 mg PO AC-TID PRN 04/24/17 07/01/17 History amLODIPine BESYLATE [Norvasc] 10 mg PO DAILY 04/24/17 07/01/17 History metFORMIN HCL [Glucophage] 500 mg PO DAILY 04/24/17 07/01/17 History Gabapentin 1,200 mg PO HS 06/21/17 07/01/17 History Omeprazole 40 mg PO HS 06/21/17 07/01/17 History Allergies Allergy/AdvReac Type Severity Reaction Status Date / Time morphine Allergy Itching Verified 07/01/17 22:00 Sulfa (Sulfonamide Allergy Rash/Hives Verified 07/01/17 22:00 Antibiotics) Surgical - Exam Vital Signs Temp Pulse Resp BP Pulse Ox 101.2 F H 89 22 112/57 90 L 07/01/17 21:13 07/01/17 21:13 07/01/17 21:13 07/01/17 21:13 07/01/17 21:13 GENERAL APPEARANCE: 82-year-old female patient is alert, oriented, in no acute distress. VITAL SIGNS: Reviewed HEENT: Head normocephalic and atraumatic. Pupils are equal and reactive. The nares are patent. Oropharynx is clear without lesions. NECK: Supple without lymphadenopathy. Traches midline. HEART: S1, S2. Regular rate and rhythm. Denying chest pain LUNGS: No crackles or wheezes are heard. Adequate air movement bilaterally ABDOMEN: Soft surgical sites no redness noted, nontender, nondistended with good bowel sounds. No peritoneal signs. No palpable organomegaly or masses. States no nausea no vomiting no stool EXTREMITIES: Normal skin color and turgor. No cyanosis, rash, ulceration, clubbing or edema. Radial pedal pulses are 2/4 bilaterally. NEUROLOGICAL: No focal deficits. Strength and sensation are grossly intact. Results - Labs 07/01/17 21:30 07/01/17 21:30 Abnormal Lab Results - Last 24 Hours (Table) 07/01/17 07/01/17 07/01/17 Range/Units 21:30 21:30 21:30 D-Dimer 1.17 H (<0.60) mg/L FEU Total Protein 5.5 L (6.3-8.2) g/dL Albumin 2.9 L (3.5-5.0) g/dL Urine Protein (Negative) Urine Blood (Negative) Ur Leukocyte Esterase (Negative) Urine RBC (0-5) /hpf Urine WBC (0-5) /hpf Ur Squamous Epith Cells (0-4) /hpf Urine Bacteria (None) /hpf Influenza Type B (PCR) Detected H (Not Detectd) 07/01/17 Range/Units 23:05 D-Dimer (<0.60) mg/L FEU Total Protein (6.3-8.2) g/dL Albumin (3.5-5.0) g/dL Urine Protein Trace H (Negative) Urine Blood Moderate H (Negative) Ur Leukocyte Esterase Moderate H (Negative) Urine RBC 22 H (0-5) /hpf Urine WBC 34 H (0-5) /hpf Ur Squamous Epith Cells 10 H (0-4) /hpf Urine Bacteria Occasional H (None) /hpf Influenza Type B (PCR) (Not Detectd) Microbiology - Last 24 Hours (Table) 07/01/17 23:05 Urine Culture - Preliminary Urine,Voided Diabetes panel 07/01/17 Range/Units 21:30 Sodium 137 (137-145) mmol/L Potassium 4.4 (3.5-5.1) mmol/L Chloride 99 (98-107) mmol/L Carbon Dioxide 30 (22-30) mmol/L BUN 15 (7-17) mg/dL Creatinine 0.80 (0.52-1.04) mg/dL Glucose 99 (74-99) mg/dL Calcium 8.5 (8.4-10.2) mg/dL AST 18 (14-36) U/L ALT 33 (9-52) U/L Alkaline Phosphatase 82 (38-126) U/L Total Protein 5.5 L (6.3-8.2) g/dL Albumin 2.9 L (3.5-5.0) g/dL Calcium panel 07/01/17 Range/Units 21:30 Calcium 8.5 (8.4-10.2) mg/dL Albumin 2.9 L (3.5-5.0) g/dL Pituitary panel 07/01/17 Range/Units 21:30 Sodium 137 (137-145) mmol/L Potassium 4.4 (3.5-5.1) mmol/L Chloride 99 (98-107) mmol/L Carbon Dioxide 30 (22-30) mmol/L BUN 15 (7-17) mg/dL Creatinine 0.80 (0.52-1.04) mg/dL Glucose 99 (74-99) mg/dL Calcium 8.5 (8.4-10.2) mg/dL Adrenal panel 07/01/17 Range/Units 21:30 Sodium 137 (137-145) mmol/L Potassium 4.4 (3.5-5.1) mmol/L Chloride 99 (98-107) mmol/L Carbon Dioxide 30 (22-30) mmol/L BUN 15 (7-17) mg/dL Creatinine 0.80 (0.52-1.04) mg/dL Glucose 99 (74-99) mg/dL Calcium 8.5 (8.4-10.2) mg/dL Total Bilirubin 0.4 (0.2-1.3) mg/dL AST 18 (14-36) U/L ALT 33 (9-52) U/L Alkaline Phosphatase 82 (38-126) U/L Total Protein 5.5 L (6.3-8.2) g/dL Albumin 2.9 L (3.5-5.0) g/dL Assessment and Plan Assessment: Impression Present on admission shortness of breath cough congestion positive H influenza type B A recent June 26 hiatal hernia repair with mesh CAT scan of the abdomen and pelvis show colon Diverticulosis with evidence of mild diverticulitis in the proximal sigmoid colon similar to prior exam Plan IV hydration as ordered No evidence of an acute surgical abdomen Continue full liquid diet as ordered Will follow clinical course closely addressing clinical issues as they arise DVT and GI prophylaxis consult for dr nair The above impression and plan of care have been discussed and directed by signing physician. Lori Wilkins nurse practitioner acting as scribe for signing physician.
--- NOTE | 2017-07-02 17:49 | P.CNPUL ---
History of Present Illness Consult date: 07/02/17 Reason for consult: dyspnea, cough, pneumonia Chief complaint: Cough shortness of breath and wheezing History of present illness: Patient came into the hospital with one-day history of increased cuff congestion spiking fever, she has been found to be positive for influenza B pneumonia in addition to that on CAT scan she was noted to have left lower lobe basal infiltrate,Patient states she is not feeling well. Patient does have recent hospital admission where she had surgery for hiatal hernia. Patient states surgery went well she is healing appropriately. Patient began with fever and off feeling well tonight, positive cough. Patient otherwise denies any complaints no abdominal pain Review of Systems All systems: negative Constitutional: Reports as per HPI, Reports chills, Reports fatigue, Reports fever, Reports lethargy, Reports malaise, Reports night sweats, Reports poor appetite, Reports sweats, Reports weakness Eyes: denies as per HPI Ears: deny: decreased hearing Ears, nose, mouth and throat: Reports as per HPI Cardiovascular: Reports as per HPI Respiratory: Reports congestion, Reports cough, Reports cough with sputum, Reports dyspnea Gastrointestinal: Reports as per HPI Genitourinary: Reports as per HPI Menstruation: Reports as per HPI Musculoskeletal: Reports as per HPI Integumentary: Reports as per HPI Neurological: Reports as per HPI Psychiatric: Reports as per HPI Endocrine: Reports as per HPI Hematologic/Lymphatic: Reports as per HPI Past Medical History Past Medical History: Diabetes Mellitus, Hypertension Additional Past Medical History / Comment(s): diverticulitis History of Any Multi-Drug Resistant Organisms: None Reported Past Surgical History: Cholecystectomy, Hernia Repair Additional Past Surgical History / Comment(s): lumpectomy; hernia sx 06-27-17 Past Anesthesia/Blood Transfusion Reactions: No Reported Reaction Past Psychological History: No Psychological Hx Reported Smoking Status: Former smoker Past Alcohol Use History: None Reported Past Drug Use History: None Reported - Past Family History Father Family Medical History: Congestive Heart Failure (CHF), COPD Mother Family Medical History: Diabetes Mellitus Additional Family Medical History / Comment(s): of heart attack 92 Medications and Allergies Home Medications Medication Instructions Recorded Confirmed Type Donepezil [Aricept] 10 mg PO HS 06/14/16 07/01/17 History Gabapentin 600 mg PO QAM 06/14/16 07/01/17 History Lisinopril [Prinivil] 10 mg PO QAM 06/14/16 07/01/17 History Simvastatin [Zocor] 20 mg PO HS 06/14/16 07/01/17 History ALPRAZolam [Xanax] 0.5 mg PO BID 04/24/17 07/01/17 History Dicyclomine [Bentyl] 10 mg PO QID 04/24/17 07/01/17 History Ondansetron Odt [Zofran Odt] 4 mg PO Q12HR PRN 04/24/17 07/01/17 History Simethicone [Gas-X] 125 mg PO AC-TID PRN 04/24/17 07/01/17 History amLODIPine BESYLATE [Norvasc] 10 mg PO DAILY 04/24/17 07/01/17 History metFORMIN HCL [Glucophage] 500 mg PO DAILY 04/24/17 07/01/17 History Gabapentin 1,200 mg PO HS 06/21/17 07/01/17 History Omeprazole 40 mg PO HS 06/21/17 07/01/17 History Allergies Allergy/AdvReac Type Severity Reaction Status Date / Time morphine Allergy Itching Verified 07/01/17 22:00 Sulfa (Sulfonamide Allergy Rash/Hives Verified 07/01/17 22:00 Antibiotics) Physical Exam Vitals: Vital Signs Temp Pulse Pulse Resp BP BP Pulse Ox 07/02/17 16:40 67 07/02/17 16:26 64 97 07/02/17 16:00 69 18 07/02/17 15:00 97.6 F 69 18 104/51 97 07/02/17 11:59 76 07/02/17 11:49 74 16 07/02/17 08:51 74 07/02/17 08:41 74 18 98 07/02/17 08:00 77 16 07/02/17 07:00 96.9 F L 77 18 134/63 95 07/02/17 04:00 16 07/02/17 01:04 97.3 F L 78 16 141/70 99 07/02/17 00:33 98.3 F 82 18 106/53 98 07/01/17 22:30 88 07/01/17 22:11 80 07/01/17 21:54 101.4 F H 07/01/17 21:13 101.2 F H 89 22 112/57 90 L Intake and Output 07/02/17 07/02/17 07/02/17 06:59 14:59 22:59 Intake Total 700 1730 Balance 700 1730 Intake: IV 700 Levofloxacin 750Mg-D5w 150 Pmx 750 mg In Dextrose/ Water 1 150ml.bag @ 100 mls/hr IVPB DAILY [facility] Rx# :[id number] Piperacillin-Tazobactam 3 50 .375 gm In Dextrose/Water 1 50ml.bag @ 12.5 mls/hr IVPB Q8H [facility] Rx#: [id number] Sodium Chloride 0.9% 1, 500 000 ml @ 100 mls/hr IV . Q10H [facility] Rx#:[id number] Intake, IV Titration 650 Amount Piperacillin-Tazobactam 3 50 .375 gm In Dextrose/Water 1 50ml.bag @ 12.5 mls/hr IVPB Q8H [facility] Rx#: [id number] Sodium Chloride 0.9% 1, 600 000 ml @ 100 mls/hr IV . Q10H [facility] Rx#:[id number] Oral 1080 Other: Voiding Method Toilet Toilet Toilet Diaper Diaper Diaper # Voids 3 3 Weight 173.5 kg Limitations: no limitations General appearance: alert, in no apparent distress Head exam: Present: atraumatic, normocephalic, normal inspection Eye exam: Present: normal appearance, PERRL, EOMI. Absent: scleral icterus, conjunctival injection, periorbital swelling ENT exam: Present: normal exam, mucous membranes moist Neck exam: Present: normal inspection. Absent: tenderness, meningismus, lymphadenopathy Respiratory exam: Present: normal lung sounds bilaterally. Respiratory distress with bilateral fine inspiratory and expiratory wheezes, no rales, rhonchi, stridor Cardiovascular Exam: Present: regular rate, normal rhythm, normal heart sounds. Absent: systolic murmur, diastolic murmur, rubs, gallop, clicks GI/Abdominal exam: Present: soft, normal bowel sounds. Absent: distended, tenderness, guarding, rebound, rigid Extremities exam: Present: normal inspection, full ROM, normal capillary refill. Absent: tenderness, pedal edema, joint swelling, calf tenderness Back exam: Present: normal inspection Neurological exam: Present: alert, oriented X3, CN II-XII intact Psychiatric exam: Present: normal affect, normal mood Skin exam: Present: warm, dry, intact, normal color. Absent: rash Results - Laboratory Findings CBC and BMP: 07/01/17 21:30 07/01/17 21:30 PT/INR, D-dimer PT 10.1 sec (9.0-12.0) 07/01/17 21:30 INR 1.0 (<1.2) 07/01/17 21:30 D-Dimer 1.17 mg/L FEU (<0.60) H 07/01/17 21:30 Abnormal lab findings: Abnormal Labs 07/01/17 07/01/17 07/01/17 21:30 21:30 21:30 D-Dimer 1.17 H Total Protein 5.5 L Albumin 2.9 L Urine Protein Urine Blood Ur Leukocyte Esterase Urine RBC Urine WBC Ur Squamous Epith Cells Urine Bacteria Influenza Type B (PCR) Detected H 07/01/17 23:05 D-Dimer Total Protein Albumin Urine Protein Trace H Urine Blood Moderate H Ur Leukocyte Esterase Moderate H Urine RBC 22 H Urine WBC 34 H Ur Squamous Epith Cells 10 H Urine Bacteria Occasional H Influenza Type B (PCR) - Diagnostic Findings Chest x-ray: report reviewed, image reviewed CT scan - chest: report reviewed, image reviewed (Chest x-ray is unremarkable CAT scan finding as dictated above) Assessment and Plan Assessment: Left lower lobe pneumonia secondary bacterial pneumonia Acute influenza B pneumonia Acute exacerbation of asthma and acute asthmatic bronchitis Hypertension hypertensive cardiovascular disease dyslipidemia Type 2 diabetes mellitus Plan: Agree with the Tamiflu along with gentle rehydration and broad-spectrum antibiotics in the form of Levaquin and Zosyn we'll continue breathing treatment patient will benefit from IV steroids continue home medicines follow sugars closely further recommendations pending Time with Patient: Greater than 30
[2017-07-02] MEDS: BUDESONIDE 0.5 MG/2 ML NEBU INHALATION SCH (19:54)
[2017-07-02] MEDS: OSELTAMIVIR 60 MG/10 ML ORAL SYRINGE PO SCH (20:50)
[2017-07-02] MEDS: DONEPEZIL 10 MG TAB PO SCH (20:50)
[2017-07-02] MEDS: GABAPENTIN 400 MG CAP PO SCH (20:50)
[2017-07-02] MEDS: PANTOPRAZOLE 40 MG TABLET PO SCH (20:51)
[2017-07-02] MEDS: ATORVASTATIN 10 MG TAB PO SCH (20:51)
[2017-07-02] MEDS: methylPREDNISolone SOD SUCCI 40 MG/ML 1 ML VIAL IV SCH (21:07)
[2017-07-03] MEDS: PIPERACILLIN-TAZOBACTAM 3.375 GM in DEXTROSE/WATER 1 50ML.BAG IVPB SCH ×3 (03:42→18:14)
[2017-07-03] MEDS: SODIUM CHLORIDE 0.9% 1,000 ML IV SCH ×2 (06:06→16:44)
[2017-07-03] MEDS: LEVOFLOXACIN 750MG-D5W PMX 750 MG in DEXTROSE/WATER 1 150ML.BAG IVPB SCH (07:37)
[2017-07-03] MEDS: methylPREDNISolone SOD SUCCI 40 MG/ML 1 ML VIAL IV SCH ×2 (07:38→21:52)
[2017-07-03] MEDS: metFORMIN 500 MG TAB PO SCH (07:38)
[2017-07-03] MEDS: LISINOPRIL 10 MG TAB PO SCH (07:38)
[2017-07-03] MEDS: amLODIPine 10 MG TAB PO SCH (07:38)
[2017-07-03] MEDS: GABAPENTIN 300 MG CAP PO SCH (07:39)
[2017-07-03] MEDS: DICYCLOMINE 10 MG CAP PO SCH ×4 (07:39→21:52)
[2017-07-03] MEDS: ALPRAZolam 0.5 MG TAB PO SCH ×2 (07:42→21:50)
[2017-07-03] MEDS: IPRATROPIUM-ALBUTEROL 3 ML NEB INHALATION PRN ×4 (08:05→19:18)
[2017-07-03] MEDS: BUDESONIDE 0.5 MG/2 ML NEBU INHALATION SCH ×2 (08:05→19:18)
[2017-07-03 11:38] LABS: Glucose,Whole Blood 145 mg/dL (75-99)
--- NOTE | 2017-07-03 14:09 | P.PN ---
Subjective Progress Note Date: 07/03/17 Principal diagnosis: Left lower lobe pneumonia and possible secondary bacterial pneumonia, influenza B pneumonia, acute exacerbation of COPD with component of chronic persistent asthma and acute asthmatic bronchitis 07/03/2017, and seen evaluated examined during the rounds clinically patient is doing slightly better cough congestion shortness of breath has improved still complaining of breathing difficulty but the IV steroids breathing treatment antibiotics are helping her she was able to sleep slightly better Patient came into the hospital with one-day history of increased cuff congestion spiking fever, she has been found to be positive for influenza B pneumonia in addition to that on CAT scan she was noted to have left lower lobe basal infiltrate,Patient states she is not feeling well. Patient does have recent hospital admission where she had surgery for hiatal hernia. Patient states surgery went well she is healing appropriately. Patient began with fever and off feeling well tonight, positive cough. Patient otherwise denies any complaints no abdominal pain Objective - Vital Signs Vital signs: Vital Signs Temp 97.8 F 07/03/17 07:00 Pulse 68 07/03/17 11:45 Resp 12 07/03/17 08:00 BP 143/67 07/03/17 07:00 Pulse Ox 97 07/03/17 07:00 Intake & Output 07/02/17 07/03/17 07/03/17 18:59 06:59 18:59 Intake Total 1730 800 Balance 1730 800 Intake: IV 450 Piperacillin-Tazobactam 3 50 .375 gm In Dextrose/Water 1 50ml.bag @ 12.5 mls/hr IVPB Q8H [facility] Rx#: [id number] Sodium Chloride 0.9% 1, 400 000 ml @ 100 mls/hr IV . Q10H [facility] Rx#:[id number] Intake, IV Titration 650 Amount Piperacillin-Tazobactam 3 50 .375 gm In Dextrose/Water 1 50ml.bag @ 12.5 mls/hr IVPB Q8H [facility] Rx#: [id number] Sodium Chloride 0.9% 1, 600 000 ml @ 100 mls/hr IV . Q10H [facility] Rx#:[id number] Oral 1080 350 Other: Voiding Method Toilet Toilet Toilet Diaper Diaper Diaper # Voids 3 1 - Exam Limitations: no limitations General appearance: alert, in no apparent distress Head exam: Present: atraumatic, normocephalic, normal inspection Eye exam: Present: normal appearance, PERRL, EOMI. Absent: scleral icterus, conjunctival injection, periorbital swelling ENT exam: Present: normal exam, mucous membranes moist Neck exam: Present: normal inspection. Absent: tenderness, meningismus, lymphadenopathy Respiratory exam: Present: normal lung sounds bilaterally. Respiratory distress with bilateral fine inspiratory and expiratory wheezes, no rales, rhonchi, stridor Cardiovascular Exam: Present: regular rate, normal rhythm, normal heart sounds. Absent: systolic murmur, diastolic murmur, rubs, gallop, clicks GI/Abdominal exam: Present: soft, normal bowel sounds. Absent: distended, tenderness, guarding, rebound, rigid Extremities exam: Present: normal inspection, full ROM, normal capillary refill. Absent: tenderness, pedal edema, joint swelling, calf tenderness Back exam: Present: normal inspection Neurological exam: Present: alert, oriented X3, CN II-XII intact Psychiatric exam: Present: normal affect, normal mood Skin exam: Present: warm, dry, intact, normal color. Absent: rash - Labs CBC & Chem 7: 07/01/17 21:30 07/01/17 21:30 Labs: Abnormal Lab Results - Last 24 Hours (Table) 07/03/17 Range/Units 11:35 POC Glucose (mg/dL) 145 H (75-99) mg/dL Microbiology - Last 24 Hours (Table) 07/01/17 23:05 Urine Culture - Preliminary Urine,Voided Gram Neg Bacilli 07/01/17 21:30 Blood Culture - Preliminary Blood No Growth after 24 hours Assessment and Plan Assessment: Left lower lobe pneumonia secondary bacterial pneumonia Acute influenza B pneumonia Acute exacerbation of asthma and acute asthmatic bronchitis Hypertension hypertensive cardiovascular disease dyslipidemia Type 2 diabetes mellitus Plan: Agree with the Tamiflu along with gentle rehydration and broad-spectrum antibiotics in the form of Levaquin and Zosyn we'll continue breathing treatment patient will benefit from IV steroids continue home medicines follow sugars closely further recommendations pending Time with Patient: Greater than 30
--- NOTE | 2017-07-03 14:18 | P.PN ---
<Lori Wilkins - Last Filed: 07/03/17 14:16> Subjective Progress Note Date: 07/03/17 82-year-old female sitting up in bed talkative currently is denying any nausea vomiting. Patient had a recent hospitalization where patient's hiatal hernia was repaired on June 26 discharged with no complications returned with shortness of breath is being treated for a UTI urine culture gram-negative bacilli positive influenza B with pneumonia noted on the CAT scan left lower lobe. Objective - Vital Signs Vital signs: Vital Signs Temp 97.8 F 07/03/17 07:00 Pulse 68 07/03/17 11:45 Resp 12 07/03/17 08:00 BP 143/67 07/03/17 07:00 Pulse Ox 97 07/03/17 07:00 Intake & Output 07/02/17 07/03/17 07/03/17 18:59 06:59 18:59 Intake Total 1730 800 Balance 1730 800 Intake: IV 450 Piperacillin-Tazobactam 3 50 .375 gm In Dextrose/Water 1 50ml.bag @ 12.5 mls/hr IVPB Q8H [facility] Rx#: [id number] Sodium Chloride 0.9% 1, 400 000 ml @ 100 mls/hr IV . Q10H [facility] Rx#:[id number] Intake, IV Titration 650 Amount Piperacillin-Tazobactam 3 50 .375 gm In Dextrose/Water 1 50ml.bag @ 12.5 mls/hr IVPB Q8H [facility] Rx#: [id number] Sodium Chloride 0.9% 1, 600 000 ml @ 100 mls/hr IV . Q10H [facility] Rx#:[id number] Oral 1080 350 Other: Voiding Method Toilet Toilet Toilet Diaper Diaper Diaper # Voids 3 1 - Exam Physical exam 82-year-old female sitting up in bed appears in no acute distress pleasant and attentive hard of hearing Lungs coarse rhonchi at the bases otherwise adequate air movement Heart S1-S2 audible regular Abdomen soft nontender no nausea tolerating full liquid diet surgical site dry no redness at the sites nondistended Extremities no edema - Constitutional Constitutional Comment(s): Physical exam 82-year-old female sitting up in bed watching TV states breathing feels slightly improved - Labs CBC & Chem 7: 07/01/17 21:30 07/01/17 21:30 Labs: Abnormal Lab Results - Last 24 Hours (Table) 07/03/17 Range/Units 11:35 POC Glucose (mg/dL) 145 H (75-99) mg/dL Microbiology - Last 24 Hours (Table) 07/01/17 23:05 Urine Culture - Preliminary Urine,Voided Gram Neg Bacilli 07/01/17 21:30 Blood Culture - Preliminary Blood No Growth after 24 hours Assessment and Plan Assessment: Impression Present on admission shortness of breath cough congestion positive H influenza type B A recent June 26 hiatal hernia repair with mesh CAT scan of the abdomen and pelvis show colon Diverticulosis with evidence of mild diverticulitis in the proximal sigmoid colon similar to prior exam Plan IV hydration as ordered No evidence of an acute surgical abdomen Continue full liquid diet as ordered Will follow clinical course closely addressing clinical issues as they arise DVT and GI prophylaxis Progress note for dr nair The above impression and plan of care have been discussed and directed by signing physician. Lori Wilkins nurse practitioner acting as scribe for signing physician. <Cirilo Nair - Last Filed: 07/03/17 19:16> Objective - Vital Signs Vital signs: Vital Signs Temp 97.3 F L 07/03/17 15:00 Pulse 87 07/03/17 16:00 Resp 16 07/03/17 16:00 BP 115/81 07/03/17 15:00 Pulse Ox 96 07/03/17 15:00 Intake & Output 07/03/17 07/03/17 07/04/17 06:59 18:59 06:59 Intake Total 800 1000 Balance 800 1000 Intake: IV 450 Piperacillin-Tazobactam 3 50 .375 gm In Dextrose/Water 1 50ml.bag @ 12.5 mls/hr IVPB Q8H [facility] Rx#: [id number] Sodium Chloride 0.9% 1, 400 000 ml @ 100 mls/hr IV . Q10H [facility] Rx#:[id number] Oral 350 1000 Other: Voiding Method Toilet Toilet Diaper Diaper # Voids 1 2 - Labs CBC & Chem 7: 07/01/17 21:30 07/01/17 21:30 Labs: Abnormal Lab Results - Last 24 Hours (Table) 07/03/17 07/03/17 Range/Units 11:35 17:16 POC Glucose (mg/dL) 145 H 150 H (75-99) mg/dL Microbiology - Last 24 Hours (Table) 07/01/17 23:05 Urine Culture - Preliminary Urine,Voided Gram Neg Bacilli 07/01/17 21:30 Blood Culture - Preliminary Blood No Growth after 24 hours
[2017-07-03] MEDS: OSELTAMIVIR 60 MG/10 ML ORAL SYRINGE PO SCH ×2 (15:32→21:51)
[2017-07-03] MEDS: HYDROcodone/APAP 5-325MG 1 EACH TAB PO PRN (15:33)
[2017-07-03 16:39] LABS: Hemoglobin A1C 6.4 % (4.0-6.0)
[2017-07-03] MEDS: FUROSEMIDE 20 MG TAB PO SCH (16:43)
[2017-07-03 17:17] LABS: Glucose,Whole Blood 150 mg/dL (75-99)
[2017-07-03] MEDS: INSULIN ASPART 100 UNIT/ML 1 ML 10 ML VIAL SQ SCH ×2 (18:14→21:52)
[2017-07-03 20:43] LABS: Glucose,Whole Blood 186 mg/dL (75-99)
[2017-07-03] MEDS: GABAPENTIN 400 MG CAP PO SCH (21:50)
[2017-07-03] MEDS: PANTOPRAZOLE 40 MG TABLET PO SCH (21:51)
[2017-07-03] MEDS: DONEPEZIL 10 MG TAB PO SCH (21:52)
[2017-07-03] MEDS: ATORVASTATIN 10 MG TAB PO SCH (22:18)
--- NOTE | 2017-07-03 23:12 | PN ---
PROGRESS NOTE SUBJECTIVE: An 82-year-old white female, slightly better. Cough, congestion is improving. Shortness of breath is improving. IV steroids and antibiotics are helping her on Tamiflu. Temp 97.8, pulse 68, respiratory rate is 12-16, blood pressure 140s/60s, O2 97% on room air. CARDIOVASCULAR: S1, S2. LUNGS: Scattered transmitted upper airway sounds. Scattered rhonchi and wheeze. HEMATOLOGY: Negative Homans'. GI: Soft, nontender. MUSCULOSKELETAL: Range of motion x4. NEUROLOGIC: Cranial nerves are intact. SKIN: Warm, dry and intact. White count is normal at 9, hemoglobin is normal at 11.8. Sodium 137, potassium 4.4, BUN 18, creatinine 0.8. ASSESSMENT: 1. Left lower lobe pneumonia secondary to bacteria, acute influenza B pneumonia. 2. Acute asthma exacerbation. 3. Asthmatic bronchitis. 4. Hypertensive cardiovascular disease. 5. Type 2 diabetes mellitus. Continue with Tamiflu, IV rehydration, broad-spectrum antibiotics, Levaquin, Zosyn for pneumonia. Continue current treatment. Follow up in the next 24-48 hours. MMODL / IJN: [id number] /
[2017-07-04] MEDS: PIPERACILLIN-TAZOBACTAM 3.375 GM in DEXTROSE/WATER 1 50ML.BAG IVPB SCH ×3 (03:41→19:31)
[2017-07-04] MEDS: SODIUM CHLORIDE 0.9% 1,000 ML IV SCH (03:41)
[2017-07-04 07:19] LABS: Glucose,Whole Blood 137 mg/dL (75-99)
[2017-07-04] MEDS: methylPREDNISolone SOD SUCCI 40 MG/ML 1 ML VIAL IV SCH ×2 (07:56→22:25)
[2017-07-04] MEDS: INSULIN ASPART 100 UNIT/ML 1 ML 10 ML VIAL SQ SCH ×4 (07:56→22:55)
[2017-07-04] MEDS: GABAPENTIN 300 MG CAP PO SCH (07:56)
[2017-07-04] MEDS: FUROSEMIDE 20 MG TAB PO SCH (07:57)
[2017-07-04] MEDS: LEVOFLOXACIN 750MG-D5W PMX 750 MG in DEXTROSE/WATER 1 150ML.BAG IVPB SCH (07:57)
[2017-07-04] MEDS: metFORMIN 500 MG TAB PO SCH (07:57)
[2017-07-04] MEDS: ALPRAZolam 0.5 MG TAB PO SCH ×2 (07:58→22:25)
[2017-07-04] MEDS: amLODIPine 10 MG TAB PO SCH (07:58)
[2017-07-04] MEDS: DICYCLOMINE 10 MG CAP PO SCH ×4 (07:58→22:26)
[2017-07-04] MEDS: LISINOPRIL 10 MG TAB PO SCH (07:58)
[2017-07-04] MEDS: OSELTAMIVIR 60 MG/10 ML ORAL SYRINGE PO SCH ×2 (08:21→22:25)
[2017-07-04] MEDS: IPRATROPIUM-ALBUTEROL 3 ML NEB INHALATION PRN ×4 (09:01→19:53)
[2017-07-04] MEDS: BUDESONIDE 0.5 MG/2 ML NEBU INHALATION SCH ×2 (09:01→19:53)
--- NOTE | 2017-07-04 10:00 | P.PN ---
Subjective Progress Note Date: 07/04/17 82-year-old female seen and examined sitting up taking a full liquid diet reports no nausea vomiting denying shortness of breath when questioning on room air sats are 98% Objective - Vital Signs Vital signs: Vital Signs Temp 96.8 F L 07/04/17 07:00 Pulse 75 07/04/17 09:15 Resp 18 07/04/17 07:00 BP 166/85 07/04/17 07:00 Pulse Ox 98 07/04/17 07:00 Intake & Output 07/03/17 07/04/17 07/04/17 18:59 06:59 18:59 Intake Total 1000 Balance 1000 Intake: Oral 1000 Other: Voiding Method Toilet Toilet Toilet Diaper Diaper Diaper # Voids 2 2 - Exam Physical exam 82-year-old female sitting up in bed watching TV hard of hearing Lungs coarse rhonchi at the bases otherwise adequate air movement on room air Heart S1-S2 audible regular denying chest pain Abdomen soft nontender no nausea tolerating full liquid diet surgical sites dry no redness at the sites nondistended Extremities no edema - Labs CBC & Chem 7: 07/01/17 21:30 07/01/17 21:30 Labs: Abnormal Lab Results - Last 24 Hours (Table) 07/01/17 07/03/17 07/03/17 Range/Units 21:30 11:35 17:16 POC Glucose (mg/dL) 145 H 150 H (75-99) mg/dL Hemoglobin A1c 6.4 H (4.0-6.0) % 07/03/17 07/04/17 Range/Units 20:41 07:12 POC Glucose (mg/dL) 186 H 137 H (75-99) mg/dL Hemoglobin A1c (4.0-6.0) % Microbiology - Last 24 Hours (Table) 07/01/17 21:30 Blood Culture - Preliminary Blood No Growth after 48 hours 07/01/17 23:05 Urine Culture - Preliminary Urine,Voided Gram Neg Bacilli Assessment and Plan Assessment: Impression Present on admission shortness of breath cough congestion positive H influenza type B A recent June 26 hiatal hernia repair with mesh CAT scan of the abdomen and pelvis show colon Diverticulosis with evidence of mild diverticulitis in the proximal sigmoid colon similar to prior exam Plan IV hydration as ordered No evidence of an acute surgical abdomen Continue full liquid diet as ordered Will follow clinical course closely addressing clinical issues as they arise DVT and GI prophylaxis Progress note for dr nair The above impression and plan of care have been discussed and directed by signing physician. Lori Wilkins nurse practitioner acting as scribe for signing physician.
[2017-07-04 11:45] LABS: Glucose,Whole Blood 121 mg/dL (75-99)
[2017-07-04] MEDS: HYDROcodone/APAP 5-325MG 1 EACH TAB PO PRN ×2 (11:47→20:20)
--- NOTE | 2017-07-04 15:26 | P.PN ---
Subjective Progress Note Date: 07/04/17 Principal diagnosis: Left lower lobe pneumonia and possible secondary bacterial pneumonia, influenza B pneumonia, acute exacerbation of COPD with component of chronic persistent asthma and acute asthmatic bronchitis 07/04/2017, patient seen eval examined care plan discussed with the patient and present at bedside from Estrace standpoint doing relatively better still gets short of breath has congestion and cough sputum is light yellow, blood culture results and reports are reviewed which are negative so far, off note that positive patient is positive for influenza B I urine culture also upon coming back positive for E. coli, patient is on Levaquin and Zosyn it appears to be resistant to Levaquin but however sensitive to Zosyn, E. coli appears to be as ESBL 07/03/2017, and seen evaluated examined during the rounds clinically patient is doing slightly better cough congestion shortness of breath has improved still complaining of breathing difficulty but the IV steroids breathing treatment antibiotics are helping her she was able to sleep slightly better Patient came into the hospital with one-day history of increased cuff congestion spiking fever, she has been found to be positive for influenza B pneumonia in addition to that on CAT scan she was noted to have left lower lobe basal infiltrate,Patient states she is not feeling well. Patient does have recent hospital admission where she had surgery for hiatal hernia. Patient states surgery went well she is healing appropriately. Patient began with fever and off feeling well tonight, positive cough. Patient otherwise denies any complaints no abdominal pain Objective - Vital Signs Vital signs: Vital Signs Temp 96.8 F L 07/04/17 07:00 Pulse 72 07/04/17 12:35 Resp 18 07/04/17 07:00 BP 166/85 07/04/17 07:00 Pulse Ox 98 07/04/17 07:00 Intake & Output 07/03/17 07/04/17 07/04/17 18:59 06:59 18:59 Intake Total 1000 1000 Balance 1000 1000 Intake: IV 1000 Levofloxacin 750Mg-D5w 150 Pmx 750 mg In Dextrose/ Water 1 150ml.bag @ 100 mls/hr IVPB DAILY [facility] Rx# :[id number] Piperacillin-Tazobactam 3 50 .375 gm In Dextrose/Water 1 50ml.bag @ 12.5 mls/hr IVPB Q8H [facility] Rx#: [id number] Sodium Chloride 0.9% 1, 800 000 ml @ 100 mls/hr IV . Q10H [facility] Rx#:[id number] Oral 1000 Other: Voiding Method Toilet Toilet Toilet Diaper Diaper Diaper # Voids 2 2 1 - Exam Limitations: no limitations General appearance: alert, in no apparent distress Head exam: Present: atraumatic, normocephalic, normal inspection Eye exam: Present: normal appearance, PERRL, EOMI. Absent: scleral icterus, conjunctival injection, periorbital swelling ENT exam: Present: normal exam, mucous membranes moist Neck exam: Present: normal inspection. Absent: tenderness, meningismus, lymphadenopathy Respiratory exam: Present: normal lung sounds bilaterally. Respiratory distress with bilateral fine inspiratory and expiratory wheezes, no rales, rhonchi, stridor Cardiovascular Exam: Present: regular rate, normal rhythm, normal heart sounds. Absent: systolic murmur, diastolic murmur, rubs, gallop, clicks GI/Abdominal exam: Present: soft, normal bowel sounds. Absent: distended, tenderness, guarding, rebound, rigid Extremities exam: Present: normal inspection, full ROM, normal capillary refill. Absent: tenderness, pedal edema, joint swelling, calf tenderness Back exam: Present: normal inspection Neurological exam: Present: alert, oriented X3, CN II-XII intact Psychiatric exam: Present: normal affect, normal mood Skin exam: Present: warm, dry, intact, normal color. Absent: rash - Labs CBC & Chem 7: 07/01/17 21:30 07/01/17 21:30 Labs: Abnormal Lab Results - Last 24 Hours (Table) 07/01/17 07/03/17 07/03/17 Range/Units 21:30 17:16 20:41 POC Glucose (mg/dL) 150 H 186 H (75-99) mg/dL Hemoglobin A1c 6.4 H (4.0-6.0) % 07/04/17 07/04/17 Range/Units 07:12 11:28 POC Glucose (mg/dL) 137 H 121 H (75-99) mg/dL Hemoglobin A1c (4.0-6.0) % Microbiology - Last 24 Hours (Table) 07/01/17 23:05 Urine Culture - Final Urine,Voided Escherichia coli 07/01/17 21:30 Blood Culture - Preliminary Blood No Growth after 48 hours Assessment and Plan Assessment: ESBL E. coli urinary tract infection Left lower lobe pneumonia secondary bacterial pneumonia Acute influenza B pneumonia Acute exacerbation of asthma and acute asthmatic bronchitis Hypertension hypertensive cardiovascular disease dyslipidemia Type 2 diabetes mellitus Plan: Wouldneedtorepeattheurineculture Agree with the Tamiflu along with gentle rehydration and broad-spectrum antibiotics in the form of Zosyn we'll continue breathing treatment patient will benefit from IV steroids continue home medicines follow sugars closely further recommendations pending, Levaquin can be discontinued Time with Patient: Greater than 30
[2017-07-04 17:25] LABS: Glucose,Whole Blood 173 mg/dL (75-99)
[2017-07-04 20:31] LABS: Glucose,Whole Blood 126 mg/dL (75-99)
[2017-07-04] MEDS: ATORVASTATIN 10 MG TAB PO SCH (22:25)
[2017-07-04] MEDS: PANTOPRAZOLE 40 MG TABLET PO SCH (22:26)
[2017-07-04] MEDS: GABAPENTIN 400 MG CAP PO SCH (22:26)
--- NOTE | 2017-07-04 23:20 | PN ---
PROGRESS NOTE SUBJECTIVE: Bghzja[age]gix[age]-old white female with influenza B pneumonia continues to have cough, congestion, shortness of breath. Remains on IV steroids, Tamiflu, IV antibiotics. CARDIOVASCULAR: S1, S2. LUNGS: Scattered wheezes and rhonchi. HEMATOLOGY: Negative Homans. PSYCH: Fair mood and affect. NEUROLOGIC: Alert and oriented x3. OPHTHALMOLOGIC: Pupils equal, round and reactive to light and accommodation. next 24 to 48 hours. MMODL / IJN: [id number] /
[2017-07-05] MEDS: DONEPEZIL 10 MG TAB PO SCH ×2 (00:29→20:30)
[2017-07-05] MEDS: PIPERACILLIN-TAZOBACTAM 3.375 GM in DEXTROSE/WATER 1 50ML.BAG IVPB SCH ×3 (03:07→19:10)
[2017-07-05] MEDS: SODIUM CHLORIDE 0.9% 1,000 ML IV SCH ×4 (03:07→18:39)
[2017-07-05] MEDS: IPRATROPIUM-ALBUTEROL 3 ML NEB INHALATION PRN ×3 (07:14→21:12)
[2017-07-05] MEDS: BUDESONIDE 0.5 MG/2 ML NEBU INHALATION SCH ×2 (07:14→21:13)
[2017-07-05 07:50] LABS: Glucose,Whole Blood 155 mg/dL (75-99)
[2017-07-05] MEDS: OSELTAMIVIR 60 MG/10 ML ORAL SYRINGE PO SCH ×2 (08:51→20:29)
[2017-07-05] MEDS: DICYCLOMINE 10 MG CAP PO SCH ×4 (08:52→22:36)
[2017-07-05] MEDS: metFORMIN 500 MG TAB PO SCH (08:52)
[2017-07-05] MEDS: amLODIPine 10 MG TAB PO SCH (08:52)
[2017-07-05] MEDS: FUROSEMIDE 20 MG TAB PO SCH (08:52)
[2017-07-05] MEDS: LISINOPRIL 10 MG TAB PO SCH (08:53)
[2017-07-05] MEDS: GABAPENTIN 300 MG CAP PO SCH (08:53)
[2017-07-05] MEDS: methylPREDNISolone SOD SUCCI 40 MG/ML 1 ML VIAL IV SCH ×2 (08:53→20:30)
[2017-07-05] MEDS: INSULIN ASPART 100 UNIT/ML 1 ML 10 ML VIAL SQ SCH ×4 (09:02→20:29)
[2017-07-05] MEDS: ALPRAZolam 0.5 MG TAB PO SCH ×2 (09:02→20:29)
--- NOTE | 2017-07-05 11:19 | P.PN ---
Subjective Progress Note Date: 07/05/17 82-year-old female seen and examined up ambulating in the room with the use of a walker denying dizziness lightheadedness shortness of breath. Patient is tolerating a full liquid diet. No nausea no vomiting. underwent a recent June 26 hiatal hernia repair with mesh. Came back into the emergency room with shortness of breath was found to have influenza be in pneumonia being followed currently by pulmonary service Objective - Vital Signs Vital signs: Vital Signs Temp 99 F 07/04/17 23:00 Pulse 78 07/05/17 07:32 Resp 18 07/05/17 07:00 BP 149/69 07/05/17 07:00 Pulse Ox 98 07/05/17 07:00 Intake & Output 07/04/17 07/05/17 07/05/17 18:59 06:59 18:59 Intake Total 1000 850 500 Balance 1000 850 500 Intake: IV 1000 850 Levofloxacin 750Mg-D5w 150 Pmx 750 mg In Dextrose/ Water 1 150ml.bag @ 100 mls/hr IVPB DAILY [facility] Rx# :[id number] Piperacillin-Tazobactam 3 50 50 .375 gm In Dextrose/Water 1 50ml.bag @ 12.5 mls/hr IVPB Q8H [facility] Rx#: [id number] Sodium Chloride 0.9% 1, 800 800 000 ml @ 100 mls/hr IV . Q10H [facility] Rx#:[id number] Oral 500 Other: Voiding Method Toilet Toilet Toilet Diaper # Voids 1 1 - Exam Physical exam 82-year-old female sitting up in a chair Lungs clear adequate air movement on room air no cough noted Heart S1-S2 audible regular denying chest pain Abdomen soft nontender no nausea tolerating full liquid diet surgical sites dry no redness at the sites nondistended Extremities no edema - Labs CBC & Chem 7: 07/01/17 21:30 07/01/17 21:30 Labs: Abnormal Lab Results - Last 24 Hours (Table) 07/04/17 07/04/17 07/04/17 Range/Units 11:28 17:22 20:26 POC Glucose (mg/dL) 121 H 173 H 126 H (75-99) mg/dL 07/05/17 Range/Units 07:27 POC Glucose (mg/dL) 155 H (75-99) mg/dL Microbiology - Last 24 Hours (Table) 07/01/17 21:30 Blood Culture - Preliminary Blood No Growth after 72 hours 07/01/17 23:05 Urine Culture - Final Urine,Voided Escherichia coli Assessment and Plan Assessment: Impression Present on admission shortness of breath cough congestion positive H influenza type B A recent June 26 hiatal hernia repair with mesh CAT scan of the abdomen and pelvis show colon Diverticulosis with evidence of mild diverticulitis in the proximal sigmoid colon similar to prior exam Plan IV hydration as ordered No evidence of an acute surgical abdomen Continue full liquid diet as ordered reinforce no straws We'll sign off and re-eval as needed DVT and GI prophylaxis Progress note for dr nair The above impression and plan of care have been discussed and directed by signing physician. Lori Wilkins nurse practitioner acting as scribe for signing physician.
[2017-07-05 11:44] LABS: Glucose,Whole Blood 146 mg/dL (75-99)
--- NOTE | 2017-07-05 11:55 | P.PN ---
Subjective Progress Note Date: 07/05/17 Principal diagnosis: Left lower lobe pneumonia and possible secondary bacterial pneumonia, influenza B pneumonia, acute exacerbation of COPD with component of chronic persistent asthma and acute asthmatic bronchitis 07/05/17, pt. seen and examined doing better but still congested, repeat urine culture not done yet, respiratory status stable overall 07/04/2017, patient seen eval examined care plan discussed with the patient and present at bedside from Estrace standpoint doing relatively better still gets short of breath has congestion and cough sputum is light yellow, blood culture results and reports are reviewed which are negative so far, off note that positive patient is positive for influenza B I urine culture also upon coming back positive for E. coli, patient is on Levaquin and Zosyn it appears to be resistant to Levaquin but however sensitive to Zosyn, E. coli appears to be as ESBL 07/03/2017, and seen evaluated examined during the rounds clinically patient is doing slightly better cough congestion shortness of breath has improved still complaining of breathing difficulty but the IV steroids breathing treatment antibiotics are helping her she was able to sleep slightly better Patient came into the hospital with one-day history of increased cuff congestion spiking fever, she has been found to be positive for influenza B pneumonia in addition to that on CAT scan she was noted to have left lower lobe basal infiltrate,Patient states she is not feeling well. Patient does have recent hospital admission where she had surgery for hiatal hernia. Patient states surgery went well she is healing appropriately. Patient began with fever and off feeling well tonight, positive cough. Patient otherwise denies any complaints no abdominal pain Objective - Vital Signs Vital signs: Vital Signs Temp 99 F 07/04/17 23:00 Pulse 78 07/05/17 07:32 Resp 18 07/05/17 07:00 BP 149/69 07/05/17 07:00 Pulse Ox 98 07/05/17 07:00 Intake & Output 07/04/17 07/05/17 07/05/17 18:59 06:59 18:59 Intake Total 1000 850 500 Balance 1000 850 500 Intake: IV 1000 850 Levofloxacin 750Mg-D5w 150 Pmx 750 mg In Dextrose/ Water 1 150ml.bag @ 100 mls/hr IVPB DAILY [facility] Rx# :[id number] Piperacillin-Tazobactam 3 50 50 .375 gm In Dextrose/Water 1 50ml.bag @ 12.5 mls/hr IVPB Q8H [facility] Rx#: [id number] Sodium Chloride 0.9% 1, 800 800 000 ml @ 100 mls/hr IV . Q10H [facility] Rx#:[id number] Oral 500 Other: Voiding Method Toilet Toilet Toilet Diaper # Voids 1 1 - Exam Limitations: no limitations General appearance: alert, in no apparent distress Head exam: Present: atraumatic, normocephalic, normal inspection Eye exam: Present: normal appearance, PERRL, EOMI. Absent: scleral icterus, conjunctival injection, periorbital swelling ENT exam: Present: normal exam, mucous membranes moist Neck exam: Present: normal inspection. Absent: tenderness, meningismus, lymphadenopathy Respiratory exam: Present: normal lung sounds bilaterally. Respiratory distress with bilateral fine inspiratory and expiratory wheezes, no rales, rhonchi, stridor Cardiovascular Exam: Present: regular rate, normal rhythm, normal heart sounds. Absent: systolic murmur, diastolic murmur, rubs, gallop, clicks GI/Abdominal exam: Present: soft, normal bowel sounds. Absent: distended, tenderness, guarding, rebound, rigid Extremities exam: Present: normal inspection, full ROM, normal capillary refill. Absent: tenderness, pedal edema, joint swelling, calf tenderness Back exam: Present: normal inspection Neurological exam: Present: alert, oriented X3, CN II-XII intact Psychiatric exam: Present: normal affect, normal mood Skin exam: Present: warm, dry, intact, normal color. Absent: rash - Labs CBC & Chem 7: 07/01/17 21:30 07/01/17 21:30 Labs: Abnormal Lab Results - Last 24 Hours (Table) 07/04/17 07/04/17 07/05/17 Range/Units 17:22 20:26 07:27 POC Glucose (mg/dL) 173 H 126 H 155 H (75-99) mg/dL 07/05/17 Range/Units 11:40 POC Glucose (mg/dL) 146 H (75-99) mg/dL Microbiology - Last 24 Hours (Table) 07/01/17 21:30 Blood Culture - Preliminary Blood No Growth after 72 hours 07/01/17 23:05 Urine Culture - Final Urine,Voided Escherichia coli Assessment and Plan Assessment: ESBL E. coli urinary tract infection Left lower lobe pneumonia secondary bacterial pneumonia Acute influenza B pneumonia Acute exacerbation of asthma and acute asthmatic bronchitis Hypertension hypertensive cardiovascular disease dyslipidemia Type 2 diabetes mellitus Plan: Would need to repeat the urine culture, ordered, if still positive for ESBL ECOLI would require Merrim iv, and ID consult, Agree with the Tamiflu along with gentle rehydration and broad-spectrum antibiotics in the form of Zosyn we' ll continue breathing treatment patient will benefit from IV steroids continue home medicines follow sugars closely further recommendations pending, Levaquin can be discontinued Time with Patient: Greater than 30
[2017-07-05] MEDS: HYDROcodone/APAP 5-325MG 1 EACH TAB PO PRN ×2 (12:49→17:22)
[2017-07-05 17:25] LABS: Glucose,Whole Blood 134 mg/dL (75-99)
--- NOTE | 2017-07-05 18:30 | PN ---
PROGRESS NOTE SUBJECTIVE: An 82-year-old white female with positive influenza pneumonia, remains on IV Levaquin, IV Solu-Medrol, Tamiflu. Patient is clinically improving from medical standpoint. Lungs show scattered rhonchi and wheeze. CARDIOVASCULAR: S1, S2. LUNGS: Transmitted upper sounds. Hematology negative Homans. Psych fair mood and affect. ASSESSMENT: 1. Status post Mason fundoplication. 2. Chronic obstructive pulmonary disease. 3. Influenza B pneumonia. 4. Possible urinary tract infection. 5. Shows E coli ESBL in the urine. Cardiovascular S1-S2. Lungs transmitted upper air sounds. Scattered rhonchi and wheeze. Blood pressure is 149/69. Psych fair mood and affect. Neurologic alert orient x3. ASSESSMENT: 1. ESBL E coli urinary tract infection. 2. Left lower lobe pneumonia. 3. Secondary bacterial pneumonia with influenza B pneumonia. 4. Acute asthma exacerbation. 5. Status post Mason. 6. Hypertension. 7. Type 2 diabetes mellitus. She may required Merrem IV, IV Zosyn until repeat urine cultures are back. Eliquis discontinued as patient is improving. Pulmonary germain, she is improving from medical standpoint. MMODL / IJN: [id number] /
[2017-07-05 19:55] LABS: Glucose,Whole Blood 196 mg/dL (75-99)
[2017-07-05] MEDS: GABAPENTIN 400 MG CAP PO SCH (20:29)
[2017-07-05] MEDS: ATORVASTATIN 10 MG TAB PO SCH (20:30)
[2017-07-05] MEDS: PANTOPRAZOLE 40 MG TABLET PO SCH (20:30)
[2017-07-06] MEDS: PIPERACILLIN-TAZOBACTAM 3.375 GM in DEXTROSE/WATER 1 50ML.BAG IVPB SCH ×3 (03:35→18:14)
[2017-07-06 07:32] LABS: Glucose,Whole Blood 153 mg/dL (75-99)
[2017-07-06] MEDS: ALPRAZolam 0.5 MG TAB PO SCH ×2 (07:41→20:39)
[2017-07-06] MEDS: INSULIN ASPART 100 UNIT/ML 1 ML 10 ML VIAL SQ SCH ×4 (07:41→20:39)
[2017-07-06] MEDS: OSELTAMIVIR 60 MG/10 ML ORAL SYRINGE PO SCH (07:42)
[2017-07-06] MEDS: GABAPENTIN 300 MG CAP PO SCH (07:42)
[2017-07-06] MEDS: metFORMIN 500 MG TAB PO SCH (07:43)
[2017-07-06] MEDS: FUROSEMIDE 20 MG TAB PO SCH (07:43)
[2017-07-06] MEDS: DICYCLOMINE 10 MG CAP PO SCH ×4 (07:44→20:39)
[2017-07-06] MEDS: methylPREDNISolone SOD SUCCI 40 MG/ML 1 ML VIAL IV SCH ×2 (07:44→20:39)
[2017-07-06] MEDS: amLODIPine 10 MG TAB PO SCH (07:44)
[2017-07-06] MEDS: LISINOPRIL 10 MG TAB PO SCH (07:45)
[2017-07-06] MEDS: BUDESONIDE 0.5 MG/2 ML NEBU INHALATION SCH ×2 (08:18→20:35)
[2017-07-06] MEDS: IPRATROPIUM-ALBUTEROL 3 ML NEB INHALATION PRN ×3 (08:18→20:35)
[2017-07-06] MEDS ORDERED: LEVOFLOXACIN 750MG-D5W PMX 750 MG in DEXTROSE/WATER 1 150ML.BAG IVPB SCH (09:00)
[2017-07-06] MEDS: SODIUM CHLORIDE 0.9% 1,000 ML IV SCH ×2 (09:03→12:21)
[2017-07-06 11:22] LABS: Glucose,Whole Blood 145 mg/dL (75-99)
--- NOTE | 2017-07-06 13:28 | PN ---
PROGRESS NOTE SUBJECTIVE: This is an 82-year-old white female with H influenza pneumonia. She does have congestive cough, shortness of breath. She is on IV Solu-Medrol, still IV antibiotics. She has ESBL in the urine. Awaiting repeat urine cultures and Infectious Disease recommendations for long-term IV antibiotics to go home on. Vital signs are reviewed. CARDIOVASCULAR: S1, S2. LUNGS: Scattered cough and rhonchi, wheeze x4. GI: Soft. Incision clean, dry, intact. Status post Mason fundoplication. Continue with current treatment. PROGNOSIS: Extremely guarded. MMODL / IJN: [id number] /
[2017-07-06] MEDS: HYDROcodone/APAP 5-325MG 1 EACH TAB PO PRN (15:49)
[2017-07-06 17:01] LABS: Glucose,Whole Blood 156 mg/dL (75-99)
--- NOTE | 2017-07-06 17:25 | PN ---
PROGRESS NOTE DATE OF SERVICE: 07/06/2017 She continues to have shortness of breath and wheezing. On physical examination, respiratory rate is 18, pulse rate of 72, temperature 97.1, blood pressure 131/65, O2 sat on room air is 95%. HEENT is unremarkable. Chest reveals expiratory wheeze. Cardiovascular system is S1, S2. Abdomen is soft. There is no edema. IMPRESSION: 1. Asthma with acute exacerbation. 2. Acute influenza B pneumonia. 3. Left lower lobe pneumonia. 4. ESBL Escherichia coli urinary tract infection. 5. Diabetes mellitus. Continue steroids, bronchodilators. I agree with CHRISTINE marah. Increase her activity level. Her prognosis is fair. MMODL / IJN: [id number] /
[2017-07-06 19:50] LABS: Glucose,Whole Blood 198 mg/dL (75-99)
[2017-07-06] MEDS: GABAPENTIN 400 MG CAP PO SCH (20:39)
[2017-07-06] MEDS: DONEPEZIL 10 MG TAB PO SCH (20:40)
[2017-07-06] MEDS: PANTOPRAZOLE 40 MG TABLET PO SCH (20:40)
[2017-07-06] MEDS: ATORVASTATIN 10 MG TAB PO SCH (20:40)
[2017-07-07] MEDS: PIPERACILLIN-TAZOBACTAM 3.375 GM in DEXTROSE/WATER 1 50ML.BAG IVPB SCH ×3 (02:27→18:09)
[2017-07-07] MEDS: SODIUM CHLORIDE 0.9% 1,000 ML IV SCH ×3 (02:27→22:04)
[2017-07-07] MEDS: IPRATROPIUM-ALBUTEROL 3 ML NEB INHALATION PRN ×4 (06:58→19:57)
[2017-07-07] MEDS: BUDESONIDE 0.5 MG/2 ML NEBU INHALATION SCH ×2 (06:59→19:57)
[2017-07-07] MEDS: metFORMIN 500 MG TAB PO SCH (07:13)
[2017-07-07] MEDS: HYDROcodone/APAP 5-325MG 1 EACH TAB PO PRN ×2 (07:13→13:52)
[2017-07-07] MEDS: DICYCLOMINE 10 MG CAP PO SCH ×4 (07:14→22:00)
[2017-07-07] MEDS: FUROSEMIDE 20 MG TAB PO SCH (07:14)
[2017-07-07] MEDS: amLODIPine 10 MG TAB PO SCH (07:15)
[2017-07-07] MEDS: ALPRAZolam 0.5 MG TAB PO SCH ×2 (07:15→21:59)
[2017-07-07] MEDS: GABAPENTIN 300 MG CAP PO SCH (07:15)
[2017-07-07] MEDS: methylPREDNISolone SOD SUCCI 40 MG/ML 1 ML VIAL IV SCH (07:16)
[2017-07-07] MEDS: LISINOPRIL 10 MG TAB PO SCH (07:16)
[2017-07-07 07:23] LABS: Glucose,Whole Blood 161 mg/dL (75-99)
[2017-07-07 07:54] VITALS: RESP 18
[2017-07-07 07:55] LABS: Anisocytosis Slight; Basophils # (A) 0.1 k/uL (0-0.2); Basophils % (A) 1 %; Eosinophils % (A) 0 %; HCT 36.8 % (34.0-46.0); HGB 11.5 gm/dL (11.4-16.0); Hypochromasia Moderate; Lymphocytes # (A) 1.1 k/uL (1.0-4.8); Lymphocytes % (A) 13 %; MCH 27.2 pg (25.0-35.0); MCHC 31.4 g/dL (31.0-37.0); MCV 86.7 fL (80.0-100.0); Monocytes # (A) 0.4 k/uL (0-1.0); Monocytes % (A) 6 %; Neutrophils # (A) 6.3 k/uL (1.3-7.7); Neutrophils % (A) 79 %; Platelet Count 355 k/uL (150-450); RBC 4.25 m/uL (3.80-5.40); RDW 16.7 % (11.5-15.5)
[2017-07-07 08:11] LABS: ALT 33 U/L (9-52); AST 18 U/L (14-36); Alkaline Phosphatase 68 U/L (38-126); Anion Gap 9 mmol/L; Blood Urea Nitrogen 12 mg/dL (7-17); Carbon Dioxide 28 mmol/L (22-30); Chloride 100 mmol/L (98-107); Glucose 164 mg/dL (74-99); Potassium 4.4 mmol/L (3.5-5.1); Sodium 137 mmol/L (137-145); Total Bilirubin 0.3 mg/dL (0.2-1.3); Total Protein 5.5 g/dL (6.3-8.2)
[2017-07-07] MEDS: INSULIN ASPART 100 UNIT/ML 1 ML 10 ML VIAL SQ SCH ×4 (09:53→21:59)
--- NOTE | 2017-07-07 10:26 | CONS ---
CONSULTATION DATE OF SERVICE: 07/06/2017. REASON FOR CONSULTATION: ESBL E coli urinary tract infection. HISTORY OF PRESENT ILLNESS: The patient is an 82-year-old female who presented to the ER at [facility] on 07/01/2017 with chief complaints of fever, cough, congestion and increasing shortness of breath. Symptom have been going on for a day or two prior to presentation to the hospital. The patient did have a cough productive of some yellow sputum but no hemoptysis. No significant chest pain. The patient recently did have a laparoscopic hiatal hernia repair by Dr. Guzman. The patient denies significant abdominal pain. No nausea, vomiting, or any diarrhea. Subsequently the patient has been evaluated by the ER physician. The patient did have a CT angiogram that was negative for any PE. However, did show bilateral basilar infiltrate more on the left than on the right side. A CT of the abdomen and pelvis did show colonic diverticulosis, evidence of mild diverticulitis in the proximal sigmoid colon, which is similar to last examand decrease in the hiatal hernia compared to last exam. The patient who did have a fever of 100.2 degrees Fahrenheit and did have influenza B PCR positive. The patient has been treated with Tamiflu, Zosyn and Levaquin. The patient did have a UA on admission that did show moderate leukocyte esterases with 24 WBC. Urine culture finalized with an E coli. I was asked to see the patient today for further recommendation regarding antibiotic therapy. The patient's overall fever pattern has improved and has no fever over the last 4 days. Her breathing has improved. No chest pain. No abdominal pain. Denies significant burning or frequency of urine. Review of system Constitutional: fever , the patient does complain of weakness. Eyes: No complaint ENT: No complaint Respiratory: As per HPI Cardiovascular: No complaint Gastrointestinal: No complaint Genitourinary: As per HPI Musculoskeletal: No complaint Integumentary: No complaint Endocrine : No complaint Psycologial : No complaint Neurological: No complaint. Past medical history : Hypertension, diverticulitis Past surgical history: Cholecystectomy, lumpectomy, hernia repair Social history: Remote history smoking no drink or drug use Family history: Father with history of congestive heart failure and COPD mother history of diabetes mellitus who at the age of 92 from heart attack EXAMINATION: Blood pressure is 131/65 with a pulse of 72, temperature of 97.1. She is 95% on room air. General description is elderly female, lying in bed in no distress. No tachypnea or accessory muscle of respiration use. HEENT: Shows no pallor or scleral icterus. Oral mucous membrane is dry. No pharyngeal erythema NECK: Trachea central. No thyromegaly. LUNGS: Unlabored breathing with decreased breath sounds in the bases. No wheeze. HEART: S1, S2. Regular rate and rhythm. No normal murmur ABDOMEN: Soft, no tenderness. No distention. No guarding. No rigidity. No organomegaly. EXTREMITIES: No edema of the feet. SKIN: No rash or mass palpable. NEUROLOGICAL: Patient is awake, alert, oriented x3 . Mood and affect normal. LABS: Hemoglobin is 11.8 on admission with white count 9.0, BUN of 15, creatinine 0.80. This was the blood work on admission. Not repeated since then. Liver enzymes are normal. Electrolytes are normal. Urine was positive. Influenza B PCR was positive. Chest x- ray and CT report as mentioned above. DIAGNOSTIC IMPRESSION AND PLAN: 1. Patient admitted to the hospital with fever. The patient did have increasing shortness of breath and did have a cough, more likely secondary to underlying acute influenza B. Also concern for possible pneumonia, could be more likely community acquired as the patient had overall improvement on the Tamiflu even though she has received inappropriately low dose for her normal kidney function, still could be component of pneumonia. 2. Patient did have a positive urinalysis; however, the urine culture had low colony count and patient had no significant urinary symptoms, possibly mild cystitis adequately treated. PLAN: 1. The patient is currently on Zosyn and Levaquin, that will continue to f finish therapy with oral Ceftin that should cover the UTI as well. 2. We will follow up on the clinical condition and further adjust medication if needed. Thank you for this consultation. Will follow this patient along with you. MMODL / IJN: [id number] / YUE
[2017-07-07 12:16] LABS: Glucose,Whole Blood 152 mg/dL (75-99)
--- NOTE | 2017-07-07 13:11 | PN ---
PROGRESS NOTE SUBJECTIVE: 82-year-old white female with ESBL UTI, awaiting culture to come back prior to going home. Her breathing is slightly improving from influenza/pneumonia and bilateral pneumonia. She is status post Mason fundoplication. Incisions look intact. CARDIOVASCULAR: S1, S2. Lungs show scattered rhonchi and wheeze. Hematology negative Homans. Sitting up in bed. Feeling better. Less cough. ASSESSMENT: 1. Influenza type B, influenza B pneumonia, community-acquired pneumonia, influenza. 2. ESBL urinary tract infection. 3. Status post Mason. 4. Hypertension. 5. Asthma. Please see further orders. Possible discharge home next 24 hours on oral antibiotics once the repeat urine cultures are finalized. Continue current medicines for now. MMODL / IJN: [id number] /
[2017-07-07 17:21] LABS: Glucose,Whole Blood 155 mg/dL (75-99)
--- NOTE | 2017-07-07 17:59 | PN ---
PROGRESS NOTE DATE OF SERVICE: July 07, 2017. She continues to have shortness of breath. On physical examination respiratory rate is 18, pulse rate of 73, temperature 97, blood pressure 143/67, O2 saturation on room air is 98%. HEENT is unremarkable. Chest reveals expiratory wheeze. Cardiovascular system reveals an S1, S2. Abdomen is soft. There is no edema. IMPRESSION: At this time is: 1. Influenza A. 2. Asthma with acute exacerbation. At this point in time, increase her IV steroids. Continue her on her current medications which were reviewed. Defer to ID regarding the treatment of E coli positive urine culture. MMODL / IJN: [id number] /
[2017-07-07] MEDS: methylPREDNISolone SOD SUCCI 125 MG/2 ML VIAL IV SCH (18:06)
[2017-07-07 20:16] LABS: Glucose,Whole Blood 203 mg/dL (75-99)
[2017-07-07] MEDS: GABAPENTIN 400 MG CAP PO SCH (22:00)
[2017-07-07] MEDS: PANTOPRAZOLE 40 MG TABLET PO SCH (22:00)
[2017-07-07] MEDS: ATORVASTATIN 10 MG TAB PO SCH (22:00)
[2017-07-07] MEDS: DONEPEZIL 10 MG TAB PO SCH (22:00)
[2017-07-08] MEDS: methylPREDNISolone SOD SUCCI 125 MG/2 ML VIAL IV SCH ×3 (00:12→12:10)
[2017-07-08] MEDS: PIPERACILLIN-TAZOBACTAM 3.375 GM in DEXTROSE/WATER 1 50ML.BAG IVPB SCH ×2 (03:56→12:36)
--- NOTE | 2017-07-08 06:57 | PN ---
PROGRESS NOTE DATE OF SERVICE: 07/07/2017 REASON FOR FOLLOWUP: urinary tract infection and possible pneumonia. INTERVAL HISTORY: The patient is afebrile. She is breathing more comfortably. She did have some minimal cough, but not bringing up any sputum. No chest pain. No abdominal pain. No diarrhea. No significant urinary symptoms. PHYSICAL EXAMINATION: On examination, blood pressure is 143/67 with a pulse of 73, temperature of 97. She is 98% on room air. General description is an elderly female lying in bed in no distress. RESPIRATORY SYSTEM: Unlabored breathing, decreased intensity of breath sounds. No wheeze. HEART: S1, S2. Regular rate and rhythm. ABDOMEN: Soft, no tenderness. LABS: Hemoglobin 11.5, white count 8.0. BUN of 12, creatinine 0.70. DIAGNOSTIC IMPRESSION AND PLAN: Patient admitted to the hospital with difficulty breathing with a fever with a component of acute influenza and possible pneumonia and urine with an Escherichia coli. The patient currently on Levaquin and Zosyn with the plan to finish therapy with oral Ceftin for about a week. Continue with supportive care. Family present at bedside. Their questions were answered. MMODL / IJN: [id number] / YUE
[2017-07-08] MEDS: SODIUM CHLORIDE 0.9% 1,000 ML IV SCH (07:19)
[2017-07-08] MEDS: DICYCLOMINE 10 MG CAP PO SCH ×2 (07:19→14:21)
[2017-07-08] MEDS: FUROSEMIDE 20 MG TAB PO SCH (07:20)
[2017-07-08] MEDS: GABAPENTIN 300 MG CAP PO SCH (07:20)
[2017-07-08] MEDS: amLODIPine 10 MG TAB PO SCH (07:20)
[2017-07-08] MEDS: LISINOPRIL 10 MG TAB PO SCH (07:21)
[2017-07-08 07:25] LABS: Glucose,Whole Blood 159 mg/dL (75-99)
[2017-07-08] MEDS: ALPRAZolam 0.5 MG TAB PO SCH (07:26)
[2017-07-08] MEDS: INSULIN ASPART 100 UNIT/ML 1 ML 10 ML VIAL SQ SCH ×2 (07:27→12:10)
[2017-07-08] MEDS: HYDROcodone/APAP 5-325MG 1 EACH TAB PO PRN ×2 (08:06→14:24)
[2017-07-08] MEDS: BUDESONIDE 0.5 MG/2 ML NEBU INHALATION SCH (08:27)
[2017-07-08] MEDS: IPRATROPIUM-ALBUTEROL 3 ML NEB INHALATION PRN ×2 (08:27→12:40)
[2017-07-08] MEDS ORDERED: LEVOFLOXACIN 750 MG TAB PO SCH (09:00)
[2017-07-08] MEDS: metFORMIN 500 MG TAB PO SCH (09:29)
--- NOTE | 2017-07-08 09:55 | P.PN ---
Subjective Progress Note Date: 07/08/17 Principal diagnosis: Left lower lobe pneumonia and possible secondary bacterial pneumonia, influenza B pneumonia, acute exacerbation of COPD with component of chronic persistent asthma and acute asthmatic bronchitis 07/08/2017, patient seen and evaluated exam and still have shortness breath cough congestion but severity has improved breathing comfortably,repeat urinary culture seen no growth has been noted, 07/05/17, pt. seen and examined doing better but still congested, repeat urine culture not done yet, respiratory status stable overall 07/04/2017, patient seen eval examined care plan discussed with the patient and present at bedside from Estrace standpoint doing relatively better still gets short of breath has congestion and cough sputum is light yellow, blood culture results and reports are reviewed which are negative so far, off note that positive patient is positive for influenza B I urine culture also upon coming back positive for E. coli, patient is on Levaquin and Zosyn it appears to be resistant to Levaquin but however sensitive to Zosyn, E. coli appears to be as ESBL 07/03/2017, and seen evaluated examined during the rounds clinically patient is doing slightly better cough congestion shortness of breath has improved still complaining of breathing difficulty but the IV steroids breathing treatment antibiotics are helping her she was able to sleep slightly better Patient came into the hospital with one-day history of increased cuff congestion spiking fever, she has been found to be positive for influenza B pneumonia in addition to that on CAT scan she was noted to have left lower lobe basal infiltrate,Patient states she is not feeling well. Patient does have recent hospital admission where she had surgery for hiatal hernia. Patient states surgery went well she is healing appropriately. Patient began with fever and off feeling well tonight, positive cough. Patient otherwise denies any complaints no abdominal pain Objective - Vital Signs Vital signs: Vital Signs Temp 96.8 F L 07/08/17 07:00 Pulse 76 07/08/17 08:42 Resp 18 07/08/17 07:00 BP 153/74 07/08/17 07:00 Pulse Ox 94 L 07/08/17 07:00 Intake & Output 07/07/17 07/08/17 07/08/17 18:59 06:59 18:59 Other: Voiding Method Toilet Toilet Toilet # Voids 3 2 2 - Exam Limitations: no limitations General appearance: alert, in no apparent distress Head exam: Present: atraumatic, normocephalic, normal inspection Eye exam: Present: normal appearance, PERRL, EOMI. Absent: scleral icterus, conjunctival injection, periorbital swelling ENT exam: Present: normal exam, mucous membranes moist Neck exam: Present: normal inspection. Absent: tenderness, meningismus, lymphadenopathy Respiratory exam: Present: normal lung sounds bilaterally. Respiratory distress with bilateral fine inspiratory and expiratory wheezes, no rales, rhonchi, stridor Cardiovascular Exam: Present: regular rate, normal rhythm, normal heart sounds. Absent: systolic murmur, diastolic murmur, rubs, gallop, clicks GI/Abdominal exam: Present: soft, normal bowel sounds. Absent: distended, tenderness, guarding, rebound, rigid Extremities exam: Present: normal inspection, full ROM, normal capillary refill. Absent: tenderness, pedal edema, joint swelling, calf tenderness Back exam: Present: normal inspection Neurological exam: Present: alert, oriented X3, CN II-XII intact Psychiatric exam: Present: normal affect, normal mood Skin exam: Present: warm, dry, intact, normal color. Absent: rash - Labs CBC & Chem 7: 07/07/17 07:09 07/07/17 07:09 Labs: Abnormal Lab Results - Last 24 Hours (Table) 07/07/17 07/07/17 07/07/17 Range/Units 11:40 17:18 20:08 POC Glucose (mg/dL) 152 H 155 H 203 H (75-99) mg/dL 07/08/17 Range/Units 07:16 POC Glucose (mg/dL) 159 H (75-99) mg/dL Microbiology - Last 24 Hours (Table) 07/01/17 21:30 Blood Culture - Final Blood No Growth after 144 hours 07/05/17 21:52 Urine Culture - Final Urine,Voided Assessment and Plan Assessment: ESBL E. coli urinary tract infection Left lower lobe pneumonia secondary bacterial pneumonia Acute influenza B pneumonia Acute exacerbation of asthma and acute asthmatic bronchitis Hypertension hypertensive cardiovascular disease dyslipidemia Type 2 diabetes mellitus Plan: Reviewed repeat the urine culture, ordered, if still positive for ESBL ECOLI would require Merrim iv, and ID consult, no far no growth Agree with the Tamiflu along with gentle rehydration and broad-spectrum antibiotics in the form of Zosyn we'll continue breathing treatment patient will benefit from IV steroids continue home medicines follow sugars closely further recommendations pending, Levaquin can be discontinued Time with Patient: Greater than 30
[2017-07-08 11:22] LABS: Glucose,Whole Blood 203 mg/dL (75-99)
[2017-07-08 13:22] VITALS: BMI 67.7
--- NOTE | 2017-07-08 15:12 | PN ---
PROGRESS NOTE DATE OF SERVICE: 07/08/2017. REASON FOR FOLLOW UP: Influenza pneumonia and UTI. INTERVAL HISTORY: The patient is afebrile. She is breathing comfortably. Denies having any chest pain. Minimal cough. no nausea, vomiting, abdominal pain, or any diarrhea. EXAMINATION: Blood pressure is 153/74 with a pulse of 84, temperature of 96.8. She is 94% on room air. General description is an elderly female up in the bed, in no distress. Respiratory system unlabored breathing. Clear to auscultation anteriorly. Heart S1, S2. Regular rate and rhythm. Abdomen soft, no tenderness. LABS: No new labs have been obtained today. Blood culture has been negative. Repeat urine is negative. DIAGNOSTIC IMPRESSION AND PLAN: Patient admitted to the hospital with sepsis most likely acute influenza, a component of pneumonia. overall improvement. Blood cultures have been negative. No sputum was collected. She will be given a short course of oral Ceftin to finish a course of therapy. Prescription was sent to the pharmacy. VIKTOR / STACIAN: [id number] / MTDD
[2017-07-08 15:27] VITALS: BP 131/70; TEMP 97
[2017-07-08 15:58] VITALS: PULSE 99
[2017-07-09] MEDS ORDERED: LEVOFLOXACIN 750 MG TAB PO SCH (09:00)
--- NOTE | 2017-07-11 09:27 | CDI ---
Last Revision, May 2017 Documentation Clarification Form Date: 07/11/2017 8:58:00 AM From: Deepa Vela Admit Date: 07/01/2017 11:17:00 PM Patient Name: Maria Luz Abad Visit Number: [id number] Discharge Date: 07/08/17 ATTENTION: The Clinical Documentation Specialists (CDI) and [facility] Coding Staff appreciate your assistance in clarifying documentation. Please respond to the clarification below the line at the bottom and electronically sign. The CDI & [facility] Coding staff will review the response and follow-up if needed. Please note: Queries are made part of the Legal Health Record. If you have any questions, please contact the author of this message via ITS. Dr. Manan Carreon Chronic persistent asthma in acute exacerbation is documented in the consult, PNs-07/03, 07/04, 07/05, 07/06, 07/07, and 07/08. Patient history/risk factors: Influenzae type B with pneumonia Clinical Indicators: scattered rhonchi and wheeze on inspiratory and expiratory ABDPELW: New bilateral lower lobe pulmonary infiltrates and atelectasis and pleural fluid compared to last exam. Vital Signs: P-89, R-22, O2-90 Treatment: Levaquin, Zosyn, breathing treatment, IV steroids Consults: yes In your professional opinion, can you please further specify the severity of the persistent asthma, if known? Severity: Mild intermittent Mild persistent Moderate persistent Severe persistent Other, please specify ____ Unable to determine If you have a question about this query, please contact Kasie Metz, Religious Activities Director, Deepthi Duarte at [phone] between 8am and 5pm. Please continue to document in your progress notes and discharge summary in order to capture severity of illness and risk of mortality. Include clinical findings that support your diagnosis. MTDD
--- NOTE | 2017-09-01 07:42 | DS ---
DISCHARGE SUMMARY ADMISSION DATE: 07/01/17. DISCHARGE DATE: 07/08/2017. DISCHARGE MEDICATIONS: Zocor 20 mg daily, Gabapentin 600 daily, Prinivil 10 mg daily, Aricept 10 mg daily. Gas-X 125 mg a.c. t.i.d., Zofran 4 mg p.o. q.12 hours, Norvasc 10 mg daily, Bentyl 10 mg q.i.d., metformin 500 daily, Xanax 0.5 b.i.d., omeprazole 40 mg daily, gabapentin 600 mg 2 tabs daily, Ceftin 500 b.i.d. for a week. CONDITION: Stable. PROGNOSIS: Guarded. Ambulate as tolerated. The patient was admitted to the hospital for cough, congestion and community-acquired pneumonia, acute hypoxemic ischemic respiratory failure. Started on IV antibiotics, IV steroids. She had left lower lobe pneumonia secondary to community-acquired pneumonia, influenza B pneumonia, acute exacerbation of asthma, asthmatic bronchitis, hypertensive cardiovascular disease, dyslipidemia, type 2 diabetes mellitus, dehydration. IV steroids, IV antibiotics, IV fluid rehydration was given. The patient was stabilized over the next few days and was sent home in stable condition to follow up as outpatient on oral antibiotics. MMODL / IJN: [id number] /
== END 2017-07-08 16:06 | disposition home or self-care (01) | DRG 871 ==
LOC: EC 21:03 → 5MS5E 23:17
PROVIDERS: ADMIT Family Medicine; ATTEND Family Medicine
DX: A41.89 Other specified sepsis (principal); J10.01 Influenza due to other identified influenza virus with the same other identified influenza virus pneumonia; J10.08 Influenza due to other identified influenza virus with other specified pneumonia; J44.0 Chronic obstructive pulmonary disease with (acute) lower respiratory infection; K57.32 Diverticulitis of large intestine without perforation or abscess without bleeding; J45.901 Unspecified asthma with (acute) exacerbation; E11.9 Type 2 diabetes mellitus without complications; J15.9 Unspecified bacterial pneumonia; N39.0 Urinary tract infection, site not specified; B96.20 Unspecified Escherichia coli [E. coli] as the cause of diseases classified elsewhere; E78.5 Hyperlipidemia, unspecified; H91.90 Unspecified hearing loss, unspecified ear; I11.9 Hypertensive heart disease without heart failure; Z16.12 Extended spectrum beta lactamase (ESBL) resistance; Z79.84 Long term (current) use of oral hypoglycemic drugs; Z79.899 Other long term (current) drug therapy; Z90.49 Acquired absence of other specified parts of digestive tract; Z87.891 Personal history of nicotine dependence; Z88.5 Allergy status to narcotic agent; Z88.2 Allergy status to sulfonamides
CPT/HCPCS: 36415; 71046; 71275; 74177; 80053; 81001; 82550; 82553; 83036; 83605; 83735; 83880; 84484; 85025; 85379; 85610; 85730; 87040; 87077; 87086; 87186; 87502; 93005; 94640; 94760; 96361; 96365; 96375; 99291

== ENCOUNTER → 2017-08-20 | Outpatient (CLI) | payer MEDICARE ==
--- NOTE | 2017-08-20 13:37 | XR ---
EXAMINATION TYPE: XR chest 2V DATE OF EXAM: 08/20/2017 COMPARISON: 07/02/2017 HISTORY: 82-year-old female history of pneumonia TECHNIQUE: Frontal and lateral views FINDINGS: Heart normal size. Atherosclerotic arch calcifications. Mild elongation of the thoracic aorta. Mild i nterstitial prominence of the chronic appearance. No consolidation or pleural effusion. IMPRESSION: Chronic changes without acute cardiopulmonary process.
== END | disposition home or self-care (01) ==
LOC: RADXRMAIN 13:13
PROVIDERS: ATTEND Family Medicine
DX: J18.9 Pneumonia, unspecified organism (principal)
CPT/HCPCS: 71046

== ENCOUNTER → 2017-09-10 | Outpatient (CLI) | payer MEDICARE ==
--- NOTE | 2017-09-10 10:26 | USB ---
Reason for exam: additional evaluation requested from prior study. History: Patient is postmenopausal. Family history of breast cancer in maternal aunt at age 55. Excisional biopsy of the right breast, September 24, 2008. Lumpectomy of the right breast, September 24, 2008. Benign excisional biopsy of the right breast, March 23, 1999. 2 excisional biopsies of the left breast. Excisional biopsy of the right breast. Physical Findings: Nurse Summary: 1cm nodule right breast 3 o'clock, stable (nurse mj). US Breast LT Left breast ultrasound includes all four quadrants, the retroareolar region and axilla. Finding demonstrates a 0.4 x 0.3 x 0.2cm mixed lesion at 2 o'clock (questionable prior biopsy with clips), a 0.3 x 0.3 x 0.3cm oval, cystic lesion at 9 o'clock and a 0.3 x 0.2 x 0.3cm oval, cystic lesion at 9 o'clock. These results were verbally communicated with the patient and result sheet given to the patient on 09/10/17. ASSESSMENT: Probably benign, BI-RAD 3 RECOMMENDATION: Ultrasound of the left breast in 6 months. Follow-up diagnostic mammogram of both breasts in 6 months. Back on schedule.
--- NOTE | 2017-09-10 13:20 | BD ---
EXAMINATION TYPE: MG DEXA axial skeleton. DATE OF EXAM: 09/10/2017 CLINICAL HISTORY: Z78.0 Height: 62 inches Weight: 179 FRAX RISK QUESTIONS: Alcohol (3 or more units per day): no Family History (Parent hip fracture): no Glucocorticoids (More than 3mos): no (Ex: prednisone, prednisolone, methylprednisolone, dexamethasone, and hydrocortisone). History of Fracture in Adulthood: yes, hand Secondary Osteoporosis: 1. Type 1 Diabetes: no 2. Hyperthyroidism: no 3. Menopause before 45: no 4. Malnutrition: no 5. Chronic liver disease: no Rheumatoid Arthritis: no Current Tobacco Use: no RISK FACTORS HISTORY OF: Family History of Osteoporosis: no Active: somewhat Diet low in dairy products/other sources of calcium: somewhat Postmenopausal woman: yes Take estrogen and/or progesterone medications: no Lost more than 2 inches in height since high school: no Frequent falls: no Poor Health: "so-so", states patient...but patient's physician told her she "was doing good" Hyperparathyroidism: no Adrenal Insufficiency: no MEDICATIONS: Prednisone or other steroids: no Thyroid Medications: no Osteoporosis Medications: no Additional Medications: metformin, Aricept, bentyl, lisinipril, norvasc, nuerotin, xanax, zocor, gase x, zofran, omeprozole Additional History: diabetic (not type I) EXAM MEASUREMENTS: Bone mineral densitometry was performed using the [employer]ostack System. Bone mineral density as measured about the Lumbar spine is: ----- L1-L4(G/cm2): 1.204 T Score Values are as follows: ----- L2: 1.5 ----- L3: 1.5 ----- L4: 2.3 ----- L1-L4: 1.1 Bone mineral density has: Decreased -5.9% since study of: 05/03/2014 Bone mineral density about the R hip (g/cm2): 0.931 Bone mineral density about the L hip (g/cm2): 0.968 T Score values are as follows: -----R Neck: -0.8 -----L Neck: -0.5 -----R Total: -0.3 -----L Total: -0.4 Bone mineral density has: Decreased -4.7% since study of: 05/03/2014 IMPRESSION: Normal (Values between +1 and -1 indicate normal bone mass). Consider repeating this study in 5 year s or sooner if there is some new clinical indication. NOTE: T-SCORE=SD OF THE YOUNG ADULT MEAN.
== END | disposition home or self-care (01) ==
LOC: RADUSWWP 08:48
PROVIDERS: ATTEND Family Medicine
DX: R92.8 Other abnormal and inconclusive findings on diagnostic imaging of breast (principal); Z78.0 Asymptomatic menopausal state
CPT/HCPCS: 77080

== ENCOUNTER 2018-03-05 22:52 | Emergency (ER) | payer MEDICARE ==
[2018-03-05 22:58] VITALS: RESP 18
--- NOTE | 2018-03-06 00:24 | ED ---
General Adult HPI - General Chief complaint: Skin/Abscess/Foreign Body Stated complaint: Lip burning Time Seen by Provider: 03/06/18 00:15 Source: patient Mode of arrival: wheelchair Limitations: no limitations - History of Present Illness Initial comments: Is an 83-year-old female who presents emergency department for lip burning and dryness. She states that she ate a TV dinner around 5 PM and that is when her symptoms started. She states that the TV dinner was extremely salty and had a bad taste. She states that since that time she's been having some burning sensation and feels like her lips are very dry and she states that it seems like this is relieved when she drinks water. She denies any foul taste or order in her mouth. She denies any open lesions or wounds. The patient does not regularly follow with a dentist. She denies any fevers or chills. No rashes. No itching. No swelling. No difficulty with speech or swallowing. No other complaints - Related Data Home Medications Medication Instructions Recorded Confirmed Donepezil [Aricept] 10 mg PO HS 06/14/16 07/01/17 Gabapentin 600 mg PO QAM 06/14/16 07/01/17 Lisinopril [Prinivil] 10 mg PO QAM 06/14/16 07/01/17 Simvastatin [Zocor] 20 mg PO HS 06/14/16 07/01/17 ALPRAZolam [Xanax] 0.5 mg PO BID 04/24/17 07/01/17 Dicyclomine [Bentyl] 10 mg PO QID 04/24/17 07/01/17 Ondansetron Odt [Zofran Odt] 4 mg PO Q12HR PRN 04/24/17 07/01/17 Simethicone [Gas-X] 125 mg PO AC-TID PRN 04/24/17 07/01/17 amLODIPine BESYLATE [Norvasc] 10 mg PO DAILY 04/24/17 07/01/17 metFORMIN HCL [Glucophage] 500 mg PO DAILY 04/24/17 07/01/17 Gabapentin 1,200 mg PO HS 06/21/17 07/01/17 Omeprazole 40 mg PO HS 06/21/17 07/01/17 Previous Rx's Medication Instructions Recorded Cefuroxime Axetil [Ceftin] 500 mg PO BID #14 tab 01/22/18 Allergies Allergy/AdvReac Type Severity Reaction Status Date / Time morphine Allergy Itching Verified 03/05/18 22:58 Sulfa (Sulfonamide Allergy Rash/Hives Verified 03/05/18 22:58 Antibiotics) Review of Systems ROS Statement: Those systems with pertinent positive or pertinent negative responses have been documented in the HPI. ROS Other: All systems not noted in ROS Statement are negative. Past Medical History Past Medical History: Hypertension Additional Past Medical History / Comment(s): diverticulitis, History of Any Multi-Drug Resistant Organisms: None Reported Past Surgical History: Cholecystectomy, Hernia Repair Additional Past Surgical History / Comment(s): lumpectomy, Past Anesthesia/Blood Transfusion Reactions: No Reported Reaction Past Psychological History: No Psychological Hx Reported Smoking Status: Former smoker Past Alcohol Use History: None Reported Past Drug Use History: None Reported - Past Family History Father Family Medical History: Congestive Heart Failure (CHF), COPD Mother Family Medical History: Diabetes Mellitus Additional Family Medical History / Comment(s): of heart attack 92 General Exam - General Exam Comments Initial Comments: Constitutional: Awake alert Appears comfortable Head: Normocephalic atraumatic Eyes: no conjunctival injection No scleral icterus EOMI ENT: TMs are clear bilaterally, oropharynx is normal with pink mucosa and no erythema or swelling, lips are normal and pink. No lesions or blistering is seen. The patient has poor dentition and multiple dental caries. She does not have any teeth on the upper maxillary palate Neck: No JVD Supple Heart: Regular rate rhythm normal S1-S2 no murmurs Lungs: Clear to auscultation bilaterally No wheezing No rales Abdomen: Soft nondistended nontender Extremities: Non edematous DP pulses intact Radial pulses intact Neuro: A&Ox3 No focal neurologic deficits Psych: Appropriate mood and affect Limitations: no limitations Course Vital Signs 03/05/18 03/06/18 22:54 00:42 Temperature 98.6 F 97.9 F Pulse Rate 83 65 Respiratory 18 18 Rate Blood Pressure 179/82 164/76 O2 Sat by Pulse 97 94 L Oximetry Medical Decision Making - Medical Decision Making This is an 83-year-old female who presented for lip burning after having a salty meal. The patient has no evidence for ALLERGIC reaction. No swelling or erythema. There is no itching. Her physical examination appears normal with regard to her lips and oral mucosa. She does have poor dentition. At this time I suspect that the patient may be having some type of contact dermatitis from the meal that she ate. I advised her to use topical lip balm for relief. Patient needs to follow-up closely with a dentist especially regarding her dentition. All questions were answered. Disposition Clinical Impression: Contact dermatitis Disposition: HOME SELF-CARE Condition: Stable Instructions: Contact Dermatitis (ED) Is patient prescribed a controlled substance at d/c from ED?: No Referrals: Chris London MD [Primary Care Provider] - 1-2 days
[2018-03-06 00:43] VITALS: BP 164/76; PULSE 65; TEMP 97.9
== END 2018-03-06 00:46 | disposition home or self-care (01) ==
LOC: EC 22:52
DX: L25.9 Unspecified contact dermatitis, unspecified cause (principal); I10 Essential (primary) hypertension; Z87.891 Personal history of nicotine dependence; Z79.84 Long term (current) use of oral hypoglycemic drugs; Z79.899 Other long term (current) drug therapy; Z88.5 Allergy status to narcotic agent; Z88.2 Allergy status to sulfonamides
CPT/HCPCS: 99282

== ENCOUNTER → 2018-04-22 | Outpatient (CLI) | payer MEDICARE ==
[~2018-04-22] MED LIST: REGADENOSON 0.4 MG/5 ML SYRINGE IV ONE
--- NOTE | 2018-04-22 11:38 | EST ---
EXERCISE STRESS DATE OF SERVICE: 04/22/2018 AGE: 83 SEX: Female HT: 5'3" WT: 202 PROTOCOL: Lexiscan Cardiolite STAGE: DURATION OF EXERCISE: HEART RATE REST: 79 BLOOD PRESSURE REST: 134/77 MAXIMUM HEART RATE ACHIEVED: 105 MAXIMUM BLOOD PRESSURE: 134/77 85% MPHR: 100% MPHR: METS: INDICATIONS: Abnormal EKG. CLINICAL INFORMATION: Baseline EKG shows sinus rhythm, poor R-wave progression and significant artifact. The patient was given intravenous Lexiscan as per protocol. Did not have chest pain or diagnostic ST-segment depression. CONCLUSIONS: 1. Inconclusive EKG part of the stress test due to baseline EKG abnormalities. 2. Cardiolite portion of the stress test will be reported separately. MMODL / IJN: [id number] /
--- NOTE | 2018-04-22 16:32 | NM ---
EXAMINATION TYPE: NM stress cardiolite DATE OF EXAM: 04/22/2018 COMPARISON: NONE HISTORY: Abnormal EKG TECHNIQUE: After the intravenous administration of 10.22 mCi Tc 99m Sestamibi - Cardiolite resting S PECT images acquired 45 minutes post injection. Patient stressed with 0.4 mg Lexiscan under cardiology observation. 25.4 mCi Tc 99m Sestamibi - Stres s images obtained 30 minutes post injection FINDINGS: No fixed or reversible perfusion defects are evident. Gated wall motion is normal. Ejection fraction of 55%. IMPRESSION: No stress-induced ischemic change.
== END | disposition home or self-care (01) ==
LOC: RADNMMAIN 08:12
PROVIDERS: ATTEND Family Medicine
DX: R94.31 Abnormal electrocardiogram [ECG] [EKG] (principal)
CPT/HCPCS: 93017; 78452; A9500; J2785

== ENCOUNTER 2018-04-24 06:32 | Day surgery (SDC) | payer MEDICARE ==
[2018-04-21 08:40] VITALS: BMI 35.7
[~2018-04-24 06:32] MED LIST changes: +DEXAMETHASONE SOD PHOSPHATE 10 MG/ML 1 ML VIAL IV ONE; +HEPARIN SODIUM,PORCINE 5,000 UNIT/ML 1 ML VIAL SQ ONE; +HYDROmorphone 0.5 MG/0.5 ML SYRINGE IVP PRN; +LACTATED RINGERS 1,000 ML IV SCH; +LIDOCAINE 1% 20 ML VIAL (10MG/ML) FOR IV START INTRADERMA PRN; +MIDAZOLAM 2 MG/2 ML VIAL IV PRN; +ONDANSETRON 4 MG/2 ML VIAL IVP ONE; +Pre Op ABX Message 1 EACH MISC MISCELLANE ONE; -REGADENOSON 0.4 MG/5 ML SYRINGE IV ONE; +SCOPOLAMINE 1.5MG/72HR PATCH TRANSDERM ONE
[2018-04-24 07:10] VITALS: TEMP 97.5
[2018-04-24 07:11] LABS: Glucose,Whole Blood 106 mg/dL (75-99)
--- NOTE | 2018-04-24 07:51 | P.GSHP ---
History of Present Illness H&P Date: 04/24/18 Chief Complaint: right shoulder lipoma 4 cm right shoulder lipoma Past Medical History Past Medical History: Diabetes Mellitus, Hyperlipidemia, Hypertension, Memory Impairment Additional Past Medical History / Comment(s): diverticulitis History of Any Multi-Drug Resistant Organisms: None Reported Past Surgical History: Cholecystectomy, Hernia Repair Additional Past Surgical History / Comment(s): lumpectomy, Past Anesthesia/Blood Transfusion Reactions: No Reported Reaction Smoking Status: Former smoker - Past Family History Father Family Medical History: Congestive Heart Failure (CHF), COPD Mother Family Medical History: Diabetes Mellitus Additional Family Medical History / Comment(s): of heart attack 92 Daughter(s) Family Medical History: Cancer Medications and Allergies Home Medications Medication Instructions Recorded Confirmed Type Donepezil [Aricept] 10 mg PO HS 06/14/16 04/24/18 History Gabapentin 600 mg PO QID 06/14/16 04/24/18 History Lisinopril [Prinivil] 10 mg PO HS 06/14/16 04/24/18 History Simvastatin [Zocor] 20 mg PO HS 06/14/16 04/24/18 History ALPRAZolam [Xanax] 0.25 mg PO HS 04/24/17 04/24/18 History Dicyclomine [Bentyl] 10 mg PO QID 04/24/17 04/24/18 History Ondansetron Odt [Zofran Odt] 4 mg PO Q12HR PRN 04/24/17 04/24/18 History Simethicone [Gas-X] 125 mg PO DAILY PRN 04/24/17 04/24/18 History amLODIPine BESYLATE [Norvasc] 5 mg PO DAILY 04/24/17 04/24/18 History metFORMIN HCL [Glucophage] 500 mg PO DAILY 04/24/17 04/24/18 History Fesoterodine Fumarate [Toviaz] 4 mg PO DAILY 04/21/18 04/24/18 History Furosemide [Lasix] 10 mg PO DAILY 04/21/18 04/24/18 History Stool Softner 1 tab PO DAILY 04/21/18 04/24/18 History Allergies Allergy/AdvReac Type Severity Reaction Status Date / Time morphine Allergy Itching Verified 04/21/18 08:27 Sulfa (Sulfonamide Allergy Rash/Hives Verified 04/21/18 08:27 Antibiotics) Surgical - Exam Vital Signs Temp Pulse Resp BP Pulse Ox 97.5 F L 56 L 16 149/67 96 04/24/18 06:56 04/24/18 06:56 04/24/18 06:56 04/24/18 06:56 04/24/18 06:56 - General well developed, no distress - Eyes PERRL - ENT normal pinna - Neck no masses - Respiratory normal expansion - Cardiovascular Rhythm: regular - Abdomen Abdomen: soft, non tender - Integumentary 4cm sjhoulder right lipoma Results - Labs Abnormal Lab Results - Last 24 Hours (Table) 04/24/18 Range/Units 07:09 POC Glucose (mg/dL) 106 H (75-99) mg/dL Assessment and Plan Plan: right shoulder lipoma will excise
[2018-04-24] MEDS ORDERED: MIDAZOLAM 2 MG/2 ML VIAL ONE (07:56)
[2018-04-24] MEDS ORDERED: PROPOFOL 10 MG/ML 20 ML VIAL IV ONE (07:56)
[2018-04-24] MEDS ORDERED: LIDOCAINE 1% INJ 10MG/ML (20 ML MDV) ONE (07:56)
[2018-04-24] MEDS ORDERED: fentaNYL (PF) 50 MCG/ML 2 ML AMP ONE (07:56)
[2018-04-24] MEDS ORDERED: BUPIVACAIN-EPI 0.25%-1:200,000 30 ML VIAL SQ ONE ×2 (08:18→08:23)
[2018-04-24 08:30] VITALS: RESP 18
--- NOTE | 2018-04-24 08:45 | P.OP ---
Date of Procedure: 04/24/18 Preoperative Diagnosis: Right shoulder lipoma Postoperative Diagnosis: Right shoulder sebaceous cyst Procedure(s) Performed: Excision of right shoulder sebaceous cyst Anesthesia: MAC Surgeon: Cirilo Guzman Estimated Blood Loss (ml): 3 Pathology: other (Sebaceous cyst) Condition: stable Disposition: PACU Description of Procedure: Patient's placed on the operative table in the supine position. She received IV sedation. She was then placed the lateral position. Her right shoulder was prepped and draped usual sterile fashion. Patient a 5 cm mass in the right upper shoulder. The skin was incised 1% local Xylocaine. Skin was incised. And then using blunt and sharp dissection a's for similar sebaceous cyst was removed. The Bovie hemostasis. The skin was closed interrupted 3-0 Monocryl suture. Dermabond dressings was applied. Patient top procedure well and was sent to recovery in stable condition.
[2018-04-24 08:57] VITALS: BP 132/78; PULSE 78
== END 2018-04-24 09:16 | disposition home or self-care (01) ==
LOC: OR 06:32
PROVIDERS: ATTEND Surgery
DX: L72.0 Epidermal cyst (principal); E11.9 Type 2 diabetes mellitus without complications; E78.5 Hyperlipidemia, unspecified; I10 Essential (primary) hypertension; R41.3 Other amnesia; Z79.84 Long term (current) use of oral hypoglycemic drugs; Z79.899 Other long term (current) drug therapy; Z88.5 Allergy status to narcotic agent; Z88.2 Allergy status to sulfonamides; Z87.891 Personal history of nicotine dependence; Z87.19 Personal history of other diseases of the digestive system; Z90.49 Acquired absence of other specified parts of digestive tract
CPT/HCPCS: 88304; 11406; J2250; J1644; J1100; J2405; J2001; J3010; J2704

== ENCOUNTER → 2018-12-11 | Outpatient (CLI) | payer MEDICARE ==
[~2018-12-11] MED LIST changes: -DEXAMETHASONE SOD PHOSPHATE 10 MG/ML 1 ML VIAL IV ONE; -HEPARIN SODIUM,PORCINE 5,000 UNIT/ML 1 ML VIAL SQ ONE; -HYDROmorphone 0.5 MG/0.5 ML SYRINGE IVP PRN; -LACTATED RINGERS 1,000 ML IV SCH; -LIDOCAINE 1% 20 ML VIAL (10MG/ML) FOR IV START INTRADERMA PRN; -MIDAZOLAM 2 MG/2 ML VIAL IV PRN; -ONDANSETRON 4 MG/2 ML VIAL IVP ONE; -Pre Op ABX Message 1 EACH MISC MISCELLANE ONE; +REGADENOSON 0.4 MG/5 ML SYRINGE IV ONE; -SCOPOLAMINE 1.5MG/72HR PATCH TRANSDERM ONE
--- NOTE | 2018-12-11 11:06 | NM ---
EXAMINATION TYPE: NM stress lexiscan cardiolite DATE OF EXAM: 12/11/2018 COMPARISON: NONE HISTORY: Congestive heart failure. Abnormal EKG. History of hypertension, diabetes, and prior history of tobacco abuse. TECHNIQUE: After the intravenous administration of 9.6 mCi Tc 99m Sestamibi - Cardiolite resting SPE CT images acquired 45 minutes post injection. The patient received 0.4mg Lexiscan, 25.6 mCi Tc 99m Sestamibi - Stress images obtained [address] injection FINDINGS: Review of stress and rest SPECT images demonstrates no distinct perfusion abnormality. The left late ral mid and apical segments demonstrate mild perfusion abnormality on rest and stress imaging indicat jonn of prior infarct. Inferior wall perfusion abnormality is seen predominantly on rest images only r epresenting artifact either from diaphragmatic attenuation, breast attenuation or GI attenuation. Gat ed analysis shows normal wall motion with an estimated left ventricular ejection fraction of 49 %. TI D is within normal limits calculated at 0.87. IMPRESSION: 1. No scintigraphic evidence for reversible ischemia. 2. Estimated left ventricular ejection fraction of 49%. 3. 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
--- NOTE | 2018-12-11 12:23 | EST ---
EXERCISE STRESS AGE: 83 SEX: F HT: 63" WT: 217 PROTOCOL: Lexiscan Cardiolite Stress Test HEART RATE REST: 60 BLOOD PRESSURE REST: 130/69 MAXIMUM HEART RATE ACHIEVED: 92 MAXIMUM BLOOD PRESSURE: 143/58 85% MPHR: 117 100% MPHR: 133 INDICATIONS: Abnormal EKG CLINICAL INFORMATION: Lexiscan Cardiolite study was performed. Patient was given Lexiscan injection over a period of 15 seconds. The peak heart rate of 80, was achieved. Maximum blood pressure of 119/61 mmHg was noted, resting EKG shows normal sinus rhythm with normal CO interval and QRS duration with a QS pattern in V1 to V3 was noted. No significant ST-segment change from the baseline was noted. The results of the nuclear study will follow. VIKTOR / SUMA: [id number] /
== END | disposition home or self-care (01) ==
LOC: RADNMMAIN 07:53
PROVIDERS: ATTEND Family Medicine
DX: I50.9 Heart failure, unspecified (principal)
CPT/HCPCS: 93017; 78452; A9500; J2785

== ENCOUNTER → 2019-01-09 | Outpatient (CLI) | payer MEDICARE ==
--- NOTE | 2019-01-09 10:24 | ECHOF ---
Referral Reason:I50.9 congestive hear failure MEASUREMENTS -------- HEIGHT: 157.5 cm WEIGHT: 96.6 kg BP: 152/70 RVIDd: 2.6 cm (< 3.3) IVSd: 1.5 cm (0.6 - 1.1) LVIDd: 3.6 cm (3.9 - 5.3) LVPWd: 1.5 cm (0.6 - 1.1) IVSs: 1.7 cm LVIDs: 2.6 cm LVPWs: 1.9 cm LA Diam: 2.8 cm (2.7 - 3.8) LAESV Index (A-L): 18.02 ml/m Ao Diam: 3.0 cm (2.0 - 3.7) AV Cusp: 0.7 cm (1.5 - 2.6) MV EXCURSION: 14.230 mm (> 18.000) MV EF SLOPE: 37 mm/s (70 - 150) EPSS: 1.4 cm MV E Severo: 0.78 m/s MV DecT: 298 ms MV A Severo: 1.18 m/s MV E/A Ratio: 0.66 AV maxP.47 mmHg AV meanP.11 mmHg AR PHT: 2906 ms RAP: 5.00 mmHg RVSP: 25.42 mmHg FINDINGS -------- Sinus rhythm. This was a technically adequate study. The left ventricular size is normal. There is moderate concentric left ventricular hypertrophy. O verall left ventricular systolic function is normal with, an EF between 55 - 60 %. The right ventricle is normal in size. Normal LA size by volume 22+/-6 ml/m2. The right atrium is normal in size. Interatrial and interventricular septum intact. There is moderate aortic valve sclerosis. There is mild aortic regurgitation. There is mild aorti c stenosis present. Peak/mean gradient across the Aortic Valve is 24.47mmHg / 12.11mmHg. The mitral valve leaflets are mildly thickened. Mild mitral annular calcification present. Mild m itral regurgitation is present. Mild tricuspid regurgitation present. Right ventricular systolic pressure is normal at < 35 mmHg. The pulmonic valve was not well visualized. The aortic root size is normal. Normal inferior vena cava with normal inspiratory collapse consistent with estimated right atrial pre ssure of 5 mmHg. There is no pericardial effusion. CONCLUSIONS -------- 1. Sinus rhythm. 2. This was a technically adequate study. 3. The left ventricular size is normal. 4. There is moderate concentric left ventricular hypertrophy. 5. Overall left ventricular systolic function is normal with, an EF between 55 - 60 %. 6. The right ventricle is normal in size. 7. Normal LA size by volume 22+/-6 ml/m2. 8. The right atrium is normal in size. 9. Interatrial and interventricular septum intact. 10. There is moderate aortic valve sclerosis. 11. There is mild aortic regurgitation. 12. There is mild aortic stenosis present. 13. Peak/mean gradient across the Aortic Valve is 24.47mmHg / 12.11mmHg. 14. The mitral valve leaflets are mildly thickened. 15. Mild mitral annular calcification present. 16. Mild mitral regurgitation is present. 17. Mild tricuspid regurgitation present. 18. Right ventricular systolic pressure is normal at < 35 mmHg. 19. The pulmonic valve was not well visualized. 20. The aortic root size is normal. 21. Normal inferior vena cava with normal inspiratory collapse consistent with estimated right atrial pressure of 5 mmHg. 22. There is no pericardial effusion. FIGURINE MAKER: Corry Holt RDCS
== END | disposition home or self-care (01) ==
LOC: RADECHMAIN 08:28
PROVIDERS: ATTEND Family Medicine
DX: I08.3 Combined rheumatic disorders of mitral, aortic and tricuspid valves (principal); I50.9 Heart failure, unspecified
CPT/HCPCS: 93306

== ENCOUNTER → 2021-09-04 | Outpatient (CLI) | payer MEDICARE ==
--- NOTE | 2021-09-06 13:50 | MM ---
Reason for exam: clinical finding. Last mammogram was performed 4 years and 5 months ago. History: Patient is postmenopausal. Family history of breast cancer in maternal aunt at age 55. Excisional biopsy of the right breast, September 24, 2008. Lumpectomy of the right breast, September 24, 2008. Benign excisional biopsy of the right breast, March 23, 1999. 2 excisional biopsies of the left breast. Excisional biopsy of the right breast. Physical Findings: A clinical breast exam by your physician is recommended on an annual basis and results should be correlated with mammographic findings. MG 3D Diag Mammo W/Cad ABEBE Bilateral CC and MLO view(s) were taken. LM view(s) were taken of the left breast. Prior study comparison: April 10, 2017, bilateral MG 3d diag mammo w/cad ABEBE. April 09, 2016, bilateral MG 3d screening mammo w/cad. There are scattered fibroglandular densities. Benign oil cyst and vascular calcifications. Lobulated irregular mass central left breast measuring 4.4 x 2.6 x 2.2cm. Regional and grouped course calcifications left breast upper outer quadrant are stable overlying palpable marker. ASSESSMENT: Incomplete: need additional imaging evaluation, BI-RAD 0 RECOMMENDATION: Ultrasound of the left breast.
--- NOTE | 2021-09-06 13:52 | USB ---
Reason for exam: additional evaluation requested from abnormal screening. History: Patient is postmenopausal. Family history of breast cancer in maternal aunt at age 55. Excisional biopsy of the right breast, September 24, 2008. Lumpectomy of the right breast, September 24, 2008. Benign excisional biopsy of the right breast, March 23, 1999. 2 excisional biopsies of the left breast. Excisional biopsy of the right breast. Physical Findings: A clinical breast exam by your physician is recommended on an annual basis and results should be correlated with mammographic findings. US Breast LT Left complete breast ultrasound includes all four quadrants, the retroareolar region and axilla. Finding demonstrates a 3.5 x 2.5 x 1.6cm lobular, irregular, solid, hypoechoic, vascular lesion at 12-6 o'clock and a 1.0 x 2.1 x 0.7cm lymph node at the axilla. ASSESSMENT: Highly suggestive of malignancy, BI-RAD 5 RECOMMENDATION: Ultrasound core biopsy of the left breast. Called Dr. London's office with mammographic findings and has scheduled an appointment for the patient for 09/28/21 at 12:[address] Reynoso. Biopsy scheduled for 09/28/21 at 1:00. PRELIMINARY REPORT CALLED AND FAXED TO DR. REYNOSO ON 09/06/21.
== END | disposition home or self-care (01) ==
LOC: RADMAMWWP 09:36
PROVIDERS: ATTEND Family Medicine
DX: N63.20 Unspecified lump in the left breast, unspecified quadrant (principal); R92.1 Mammographic calcification found on diagnostic imaging of breast; N60.02 Solitary cyst of left breast; Z78.0 Asymptomatic menopausal state; Z80.3 Family history of malignant neoplasm of breast
CPT/HCPCS: 77066; 76641; G0279; 77062

== ENCOUNTER → 2021-10-12 | Outpatient (CLI) | payer MEDICARE ==
[2021-10-12 13:28] VITALS: BP 143/73; PULSE 80; RESP 17; TEMP 97.9
--- NOTE | 2021-10-12 14:07 | P.GSHP ---
History of Present Illness H&P Date: 10/12/21 Chief Complaint: abnormal left breast mammogram Maria Luz is an 86 year old white female seen in consultation for Dr. London regarding a left breast abnormality. She has noted a mass in her left breast about 4 weeks ago. She had a bilateral mammogram on . This revealed a lobulated irregular mass central left breast measuring 4.4 x 2.6 cm in size. Regional global coarse calcifications were also identified. She subsequently underwent an ultrasound of the left breast again revealing the lesion of concern. She as well had a 2.1 cm lymph node in the axilla. No lesions of concern were identified in the right breast. She's had bilateral breast biopsies in the past. Nicotine: stopped 65 years ago caffiene: 2 cups/day chocolate: seldom BCP:none hormones: none Family History: maternal aunt: breast cancer maternal grandfather: of cancer daughter: of cancer; leukemia Hormonal History: menarche: 14 breast fed: yes, age at first : 23 menopause: 51 Surgical History: gallbladder hernia repair breast biopsy bilateral Medical History: diverticulitis memory impairment HTN DM hyperlipidemia Social History: nicotine: stopped 65 years ago alcohol: none drugs: none - Constitutional Comment: hotflashes - EENT Comment: wears glasses Eyes: bilateral blurred vision Ears: left: decreased hearing Ears, nose, mouth and throat: Denies headache, Denies sore throat - Breasts Breasts: bilateral: as per HPI - Cardiovascular Cardiovascular: Denies chest pain, Denies shortness of breath - Respiratory Comment: tickling in her throat Respiratory: Reports cough - Gastrointestinal Gastrointestinal: Denies abdominal pain, Denies diarrhea, Denies nausea, Denies vomiting - Genitourinary (Female) Genitourinary: Denies dysuria, Denies hematuria - Menstruation Menstruation: Reports postmenopausal - Musculoskeletal Comment: back pain lower back - Integumentary Comment: dry skin - Neurological Comment: numbness in feet and legs bilateral - Psychiatric Psychiatric: Reports anxiety - Endocrine Comment: diabetes Endocrine: Denies fatigue, Denies weight change - Hematologic/Lymphatic Comment: none - Allergic/Immunologic Allergic/Immunologic: Reports seasonal allergies Past Medical History Past Medical History: Diabetes Mellitus, Hyperlipidemia, Hypertension, Memory Impairment Additional Past Medical History / Comment(s): diverticulitis History of Any Multi-Drug Resistant Organisms: None Reported Past Surgical History: Cholecystectomy, Hernia Repair Additional Past Surgical History / Comment(s): lumpectomy, Past Anesthesia/Blood Transfusion Reactions: No Reported Reaction Past Psychological History: No Psychological Hx Reported Smoking Status: Former smoker Past Alcohol Use History: None Reported Additional Past Alcohol Use History / Comment(s): smoked 20 years 1 ppd quit 40 years ago Past Drug Use History: None Reported - Past Family History Father Family Medical History: Congestive Heart Failure (CHF), COPD Mother Family Medical History: Diabetes Mellitus Additional Family Medical History / Comment(s): of heart attack 92 Daughter(s) Family Medical History: Cancer Medications and Allergies Home Medications Medication Instructions Recorded Confirmed Type Simvastatin [Zocor] 20 mg PO HS 06/14/16 10/12/21 History ALPRAZolam [Xanax] 0.25 mg PO HS 04/24/17 10/12/21 History Dicyclomine [Bentyl] 10 mg PO QID 04/24/17 10/12/21 History Simethicone [Gas-X] 125 mg PO DAILY PRN 04/24/17 10/12/21 History amLODIPine BESYLATE [Norvasc] 5 mg PO DAILY 04/24/17 10/12/21 History metFORMIN HCL [Glucophage] 500 mg PO DAILY 04/24/17 10/12/21 History Furosemide [Lasix] 10 mg PO DAILY 04/21/18 10/12/21 History Stool Softner 1 tab PO DAILY 04/21/18 10/12/21 History Omeprazole 20 mg PO DAILY 10/12/21 10/12/21 History Allergies Allergy/AdvReac Type Severity Reaction Status Date / Time morphine Allergy Itching Verified 10/12/21 13:20 Sulfa (Sulfonamide Allergy Rash/Hives Verified 10/12/21 13:20 Antibiotics) Surgical - Exam Vital Signs Temp Pulse Resp BP Pulse Ox 97.9 F 80 17 143/73 97 10/12/21 13:25 10/12/21 13:25 10/12/21 13:25 10/12/21 13:25 10/12/21 13:25 BMI: 32.9 - General moderate distress - Eyes normal ocular movement - Neck trachea midline - Respiratory normal expansion, normal respiratory effort - Cardiovascular Rhythm: regular Heart Sounds: normal: S1, S2 - Abdomen Abdomen: soft - Integumentary normal turgor - Musculoskeletal in a wheel chair - Psychiatric oriented to time, oriented to person, oriented to place Breast Exam: Bra: 44 C Inspection: bilateral grade 3 ptosis Palpation: Right breast: exam fibrocystic changes no dominant masses or nodules of concern Right axilla: No adenopathy of concern Left breast: Examination reveals approximately 4 cm area of fullness in the 12 o'clock position consistent with the abnormality seen on mammogram Left axilla: No specific adenopathy of palpated to correlate with radiographic findings Results Mammogram and ultrasound reviewed Assessment and Plan Assessment: Impression: diverticulitis memory impairment HTN DM hyperlipidemia Abnormal left breast mammogram and ultrasound Plan: Core biopsy left breast lesion Core biopsy left axillary node Follow up after core biopsies done CC: Dr. London
== END ==
LOC: WWCWWP 13:10
PROVIDERS: ATTEND Surgery
DX: R92.8 Other abnormal and inconclusive findings on diagnostic imaging of breast (principal); K57.92 Diverticulitis of intestine, part unspecified, without perforation or abscess without bleeding; R41.3 Other amnesia; E78.5 Hyperlipidemia, unspecified; I10 Essential (primary) hypertension; E11.9 Type 2 diabetes mellitus without complications; Z87.891 Personal history of nicotine dependence; Z88.2 Allergy status to sulfonamides; Z88.5 Allergy status to narcotic agent; Z79.84 Long term (current) use of oral hypoglycemic drugs

== ENCOUNTER → 2021-10-26 | Day surgery (SDC) | payer MEDICARE ==
--- NOTE | 2021-10-26 12:30 | USB ---
EXAMINATION TYPE: US biopsy breast VAD LT, MG post biopsy diagnostic mammo LT wo CAD DATE OF EXAM: 10/26/2021 CLINICAL HISTORY: 86-year-old female R92.8 ABNORMAL MAMMOGRAM. TECHNIQUE: Ultrasound guided core biopsy of the left breast. COMPARISON: 09/04/2021 FINDINGS: The procedure of ultrasound guided core biopsy was explained to the patient. Benefits, alternatives, and risks were discussed. An informed consent was then obtained. The patient was placed in supine positioning for imaging and for the procedure. The overlying skin was prepped and draped in usual sterile fashion. 10 cc of 1% lidocaine was used as anesthetic into the skin and subcutaneous tissue up to area of concern in the 6:00 retroareolar left breast. Under ultrasound guidance, a 13-gauge vacuum-assisted mammotome Elite biopsy gun was used to obtain 4 core samples. Following this, a wing clip was left in lesion. The patient tolerated the procedure well without any immediate complication. The patient was kept in the radiology department for short stay after the procedure and then discharged home in stable condition. Post biopsy mammogram shows the biopsy clip within the BI-RADS 5 mass. IMPRESSION: Successful, uncomplicated ultrasound guided core biopsy of BI-RADS 5, 6:00 retroareolar left breast mass. Full pathology results to follow. Pathology Results: Malignant LEFT BREAST, 6:00 POSITION, CORE BIOPSY: Mucinous adenocarcinoma, Grade 2 (See surgical pathology cancer case summary and comment). Recommendation Surgical consult of the left breast. NESSD
== END ==
LOC: RADUSWWP 10:20
PROVIDERS: ATTEND Surgery
DX: C50.812 Malignant neoplasm of overlapping sites of left female breast (principal); Z17.0 Estrogen receptor positive status [ER+]
CPT/HCPCS: 88305; 88342; 88341; 77065; 19083; A4648

== ENCOUNTER → 2021-12-08 | Outpatient (CLI) | payer MEDICARE ==
[2021-12-08 09:14] VITALS: BP 151/73; PULSE 51; RESP 18; TEMP 97.9
--- NOTE | 2021-12-08 10:10 | P.PN ---
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 London regarding a left breast abnormality. She has noted a mass in her left breast about 4 weeks ago. She had a bilateral mammogram on . This revealed a lobulated irregular mass central left breast measuring 4.4 x 2.6 cm in size. Regional global coarse calcifications were also identified. She subsequently underwent an ultrasound of the left breast again revealing the lesion of concern. She as well had a 2.1 cm lymph node in the axilla. No lesions of concern were identified in the right breast. She's had bilateral breast biopsies in the past. 11-02-21 The patient and [id number] underwent a left breast ultrasound core biopsy. Pathology revealed mucinous adenocarcinoma grade 2 ER LA positive HER-2/nazia negative. This is believed to be T2 N0 M0. I had reviewed the patient's ultrasound with Dr. Maravilla who had not felt that a core biopsy of an axillary node was necessary. This would make the patient is stage IB. The patient tolerated her biopsy without difficulty. 12-08-21 Patient's case was presented at tumor board. The recommendation was for surgical intervention and no neoadjuvant therapy at this time. I have discussed this with the patient and her and daughter. She is scheduled for a stress test next week prior to medical clearance. At this time the patient has declined meeting with radiation oncology. We will see what her pathology results revealed. Additionally they would prefer not to have any chemotherapy but may be receptive to hormone therapy. Nicotine: stopped 65 years ago caffiene: 2 cups/day chocolate: seldom BCP:none hormones: none Family History: maternal aunt: breast cancer maternal grandfather: of cancer daughter: of cancer; leukemia Hormonal History: menarche: 14 breast fed: yes, age at first : 23 menopause: 51 Surgical History: gallbladder hernia repair breast biopsy bilateral Medical History: diverticulitis memory impairment HTN DM hyperlipidemia Social History: nicotine: stopped 65 years ago alcohol: none drugs: none - Constitutional Comment: hotflashes - EENT Comment: wears glasses Eyes: bilateral blurred vision Ears: left: decreased hearing Ears, nose, mouth and throat: Denies headache, Denies sore throat - Breasts Breasts: bilateral: as per HPI - Cardiovascular Cardiovascular: Denies chest pain, Denies shortness of breath - Respiratory Comment: tickling in her throat Respiratory: Reports cough - Gastrointestinal Gastrointestinal: Denies abdominal pain, Denies diarrhea, Denies nausea, Denies vomiting - Genitourinary (Female) Genitourinary: Denies dysuria, Denies hematuria - Menstruation Menstruation: Reports postmenopausal - Musculoskeletal Comment: back pain lower back - Integumentary Comment: dry skin - Neurological Comment: numbness in feet and legs bilateral - Psychiatric Psychiatric: Reports anxiety - Endocrine Comment: diabetes Endocrine: Denies fatigue, Denies weight change - Hematologic/Lymphatic Comment: none - Allergic/Immunologic Allergic/Immunologic: Reports seasonal allergies Objective - Vital Signs Vital signs: Vital Signs Temp 97.9 F 12/08/21 09:11 Pulse 51 L 12/08/21 09:11 Resp 18 12/08/21 09:11 BP 151/73 12/08/21 09:11 Pulse Ox 97 12/08/21 09:11 FiO2 Intake & Output 12/07/21 12/08/21 12/08/21 18:59 06:59 18:59 Weight 82.554 kg - Constitutional General appearance: Present: cooperative - EENT Eyes: Present: EOMI - Neck Neck: Present: normal ROM - Respiratory Respiratory: bilateral: CTA - Cardiovascular Heart sounds: normal: S1, S2 - Integumentary Integumentary: Present: normal turgor - Musculoskeletal Musculoskeletal Comment(s): wheel chair needed - Psychiatric Psychiatric: Present: A&O x's 3, appropriate affect, intact judgment & insight - Additional findings Additional findings: Breast Exam: BRA: 44C inspection: Bilateral grade 3 ptosis Palpation: right breast exam no dominant masses or nodules of concern right Axilla: No adenopathy of concern Left breast: Examination the wheelchair upper position mass at the 12 o'clock position approximately 4 cm in size, no other dominant masses or nodules of concern Left axilla: No adenopathy of concern Assessment and Plan Assessment: Impression: diverticulitis memory impairment HTN DM hyperlipidemia Stage IB invasive carcinoma left breast Plan: Left breast lumpectomy, possible optical plastic tissue transfer Left sentinel node injection, left sentinel node biopsy, possible axillary node dissection At this time we're awaiting preoperative clearance patient is going to have a stress test on next week prior to clearance for surgery Cc: Dr. Chris London
== END ==
LOC: WWCBREAST 08:57
PROVIDERS: ATTEND Surgery
DX: C50.912 Malignant neoplasm of unspecified site of left female breast (principal); K57.92 Diverticulitis of intestine, part unspecified, without perforation or abscess without bleeding; I10 Essential (primary) hypertension; E78.5 Hyperlipidemia, unspecified; Z17.0 Estrogen receptor positive status [ER+]; Z87.891 Personal history of nicotine dependence; E11.9 Type 2 diabetes mellitus without complications; R41.3 Other amnesia; Z88.5 Allergy status to narcotic agent; Z88.2 Allergy status to sulfonamides

== ENCOUNTER → 2021-12-12 | Outpatient (CLI) | payer MEDICARE ==
[~2021-12-12] MED LIST changes: -REGADENOSON 0.4 MG/5 ML SYRINGE IV ONE; +REGADENOSON 0.4 MG/5 ML SYRINGE IV PRN
--- NOTE | 2021-12-13 03:38 | NM ---
EXAMINATION TYPE: NM stress lexiscan cardiolite DATE OF EXAM: 12/12/2021 COMPARISON: 12/11/2018 HISTORY: 86-year-old female R94.31, abnormal EKG, presurgical evaluation, difficulty in breathing, hy pertension, family history, diabetes, hypertension. TECHNIQUE: After the intravenous administration of 9.4 mCi Tc 99m Sestamibi - Cardiolite resting SPE CT images acquired 45 minutes post injection. The patient received 0.4mg Lexiscan, 25.8 mCi Tc 99m Sestamibi - Stress images obtained [address] injection FINDINGS: Review of stress and rest SPECT images demonstrates mildly diminished perfusion along the anterior wa ll. This appears more pronounced especially along the mid segment on stress. Some of this may reflect attenuation artifact but findings are corroborated on the polar maps. Gated analysis shows some gene ralized hypokinesis with an estimated left ventricular ejection fraction of 54 %. TID is calculated at 0.89, within normal limits. IMPRESSION: 1. There is mildly diminished perfusion along the anterior wall that is somewhat more pronounced katelyn cially along the mid segment on stress. Some of this may relate to attenuation artifact but findings are corroborated on polar maps. Unable to exclude a small area of prior infarct and some inducible is chemia here. Clinically correlate. 2. Estimated LVEF is borderline diminished at 54%.
--- NOTE | 2021-12-13 10:46 | EST ---
EXERCISE STRESS INDICATION: Preop cardiac evaluation. AGE: 86 SEX: F HT: 5'3" WT: 179 lbs. PROTOCOL: Lexiscan STAGE: DURATION OF EXERCISE: HEART RATE REST: 53 BLOOD PRESSURE REST: 146/59 MAXIMUM HEART RATE ACHIEVED: 97 MAXIMUM BLOOD PRESSURE: 141/63 85% MPHR: 115 100% MPHR: 135 METS: @@ RESULTS: Baseline EKG shows sinus rhythm with poor R-wave progression suggestive of prior anteroseptal myocardial infarction. The patient was given intravenous Lexiscan as per protocol, did not have chest pain or diagnostic ST-segment depression. CONCLUSIONS: 1. Negative stress test by EKG criteria. 2. Cardiolite portion of the stress test will be reported separately. MMODL / IJN: [id number] /
== END ==
LOC: RADNMMAIN 08:43
PROVIDERS: ATTEND Family Medicine
DX: R94.31 Abnormal electrocardiogram [ECG] [EKG] (principal)
CPT/HCPCS: 93017; 78452; A9500; J2785

== ENCOUNTER 2021-12-13 07:50 | Day surgery (SDC) | payer MEDICARE ==
[2021-12-11 15:38] VITALS: BMI 32.4
[~2021-12-13 07:50] MED LIST changes: +ALPRAZolam 0.25 MG TAB PO PRN; +DEXAMETHASONE SOD PHOSPHATE 4 MG/ML 1 ML VIAL IV ONE; +HEPARIN SODIUM,PORCINE/PF 5,000 UNIT/0.5 ML SYRINGE SQ PRN; +HYDROmorphone 0.5 MG/0.5 ML SYRINGE IVP PRN; +LACTATED RINGERS 1,000 ML IV SCH; +LIDOCAINE 1% (10MG/ML) FOR IV START INTRADERMA PRN; +ONDANSETRON 4 MG/2 ML VIAL IVP ONE; +Pre Op ABX Message 1 EACH MISC MISCELLANE ONE; -REGADENOSON 0.4 MG/5 ML SYRINGE IV PRN
[2021-12-13 08:31] LABS: Glucose,Whole Blood 127 mg/dL (70-110)
[2021-12-13] MEDS ORDERED: LIDOCAINE 1% INJ 10MG/ML (20 ML MDV) SQ ONE (09:25)
--- NOTE | 2021-12-13 10:14 | NM ---
EXAMINATION TYPE: NM sentinel node injection DATE OF EXAM: 12/13/2021 COMPARISON: NONE INDICATION: Abnormal mammogram. Procedure was discussed with the patient including possible elevated background from recent stress te st which may make this injection not diagnostic. Procedure was discussed with the surgeon prior to ne edle localization. Informed consent was obtained. A timeout was performed. The area around the left nipple was cleansed with alcohol. In a single dose, a total of 519 uCi Santos hnetium 99m Tilmanocept was injected. The patient tolerated the procedure very well. IMPRESSIONS: 1. Successful injection for sentinel node evaluation.
--- NOTE | 2021-12-13 10:54 | P.NAPBC ---
NAPBC Queries - NAPBC Queries Was patient's case review presented at [facility] tumor board? If no, comment.: Yes Was patient's pathology reviewed at [facility]? If no, comment.: Yes Was breast conservation surgery offered? If no, comment.: Yes Was sentinel node biopsy offered? If no, comment.: Yes Was diagnosis confirmed by percutaneous core biopsy? If no, comment.: Yes Is patient mastectomy patient?: No Was a preop referral to reconstructive surgeon offered?: No Clinical Stage: stage IB
[2021-12-13] MEDS ORDERED: LIDOCAINE 2% INJ 20 MG/ML (2 ML VIAL) ONE (11:32)
[2021-12-13] MEDS ORDERED: PROPOFOL 10 MG/ML 20 ML VIAL IV ONE (11:32)
[2021-12-13] MEDS ORDERED: SUCCINYLCHOLINE CHLORIDE 100 MG/5 ML SYR IV ONE (11:32)
[2021-12-13] MEDS ORDERED: fentaNYL (PF) 50 MCG/ML 2 ML AMP ONE (11:32)
[2021-12-13] MEDS ORDERED: hydrALAZINE HCL 20 MG/ML 1 ML VIAL ONE (11:32)
[2021-12-13] MEDS ORDERED: PHENYLEPHRINE-0.9% NACL SYG 1,000 MCG/10 ML SYRINGE ONE (11:32)
[2021-12-13] MEDS ORDERED: SODIUM CHLORIDE 0.9% 50 ML with ceFAZolin 2,000 MG IV ONE ×2 (11:37)
--- NOTE | 2021-12-13 13:29 | P.OP ---
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 Postoperative Diagnosis: Same Procedure(s) Performed: Methylene blue injection for mapping and sentinel node, sentinel node biopsy, needle localization lumpectomy, onco- plastic tissue transfers 69 cm Anesthesia: EMELYA Surgeon: Lillie Reynoso Estimated Blood Loss (ml): 15 IV fluids (ml): 800 Pathology: other ([place] node biopsy, breast tissue) Condition: stable Disposition: same day Indications for Procedure: Biopsy-proven left breast invasive ductal carcinoma Operative Findings: Fibrofatty breast tissue Description of Procedure: The patient is an 86-year-old white female with a biopsy-proven left breast invasive ductal carcinoma. She underwent a stress test yesterday and after discussion with radiology it was felt that that she should still undergo injection for radioactive tracer for sentinel node biopsy. She was seen initially in the radiology department where injection of radioactive tracer was performed as well as bracketing of the tumor. The patient was then brought to the operative suite. Following induction of anesthesia the neoprobe was used to identify radioactivity in the axilla. There was background noise in the supraclavicular and contralateral axilla as well. Therefore methylene blue was injected as a radiotracer. 80 mL of half-strength methylene blue were injected into the periareolar area and the breast was massaged. The left breast and axilla were then prepped and draped in a sterile fashion. The axilla was approached initially. Incision was made and carried down into the axillary tissues. Using the neoprobe the area of greatest radioactivity was identified. Dissection was performed into this area where a blue lymph node was consistent with the most radioactive lymph node. This was excised. The 10 second count on this node was 3530. No other blue lymph nodes were identified. This lymph node was blue as well. No blue or highly radioactive lymph nodes were identified. The deep tissues were closed using 3-0 Vicryl suture. This was followed by closure of the subcutaneous tissue with 3-0 Vicryl suture. The skin was closed with 4-0 Monocryl. This was after assured that hemostasis was attained. The breast was then approached. An incision was made in the superior aspect of the breast and carried down to the shaft of both needles. The tissue was excised. The cavity of excision was 9 cm x 3 cm. The specimen was painted for orientation and radiograph was performed confirming that the area of concern had been removed. Posteriorly dissection was onto the chest wall. Anteriorly was directly under the skin. The patient had numerous superior inferior medial and lateral margins obtained which were painted for orientation. The patient had an inferior flap 8 x 3 cm developed and the superior flap 9 x 2 cm developed. This tissues were brought together to close the defect which was 9x3 cm. The total tissue transfer was 69cm. After we were assured that hemostasis was attained the wound was well irrigated. Titanium clips were placed. The inferior and superior pillars were brought together using 3-0 Vicryl suture. The subcutaneous tissues closed with 3-0 Vicryl suture. The skin was closed using a 4-0 Monocryl. The patient tolerated the procedure in stable condition. All instrument and sponge counts were correct at the end of the case.
--- NOTE | 2021-12-13 13:31 | P.DS ---
Providers Attending physician: Lillie Reynoso Primary care physician: Chris London Plan - Discharge Summary Discharge Rx Participant: Yes New Discharge Prescriptions: No Action Simvastatin [Zocor] 20 mg PO HS Simethicone [Gas-X] 125 mg PO DAILY PRN PRN Reason: GAS RELIEF amLODIPine BESYLATE [Norvasc] 5 mg PO DAILY ALPRAZolam [Xanax] 0.25 mg PO HS diphenhydrAMINE [Benadryl] 25 mg PO BID PRN PRN Reason: Allergy Symptoms Gabapentin [Neurontin] 300 mg PO TID Furosemide [Lasix] 40 mg PO BID Montelukast [Singulair] 10 mg PO HS HYDROcodone/APAP 5-325MG [[place] 5-325] 1 tab PO HS PRN PRN Reason: Pain Docusate [Colace] 100 mg PO DAILY Ozempic (Unknown Dose) 1 dose SQ WEEKLY Omeprazole 20 mg PO DAILY Albuterol Inhaler [Ventolin Hfa Inhaler] 1 puff INHALATION DIRECTED PRN PRN Reason: Shortness Of Breath Acetaminophen Tab [Tylenol] 650 mg PO DIRECTED PRN PRN Reason: Pain Discharge Medication List Simvastatin [Zocor] 20 mg PO HS 06/14/16 [History] ALPRAZolam [Xanax] 0.25 mg PO HS 04/24/17 [History] Simethicone [Gas-X] 125 mg PO DAILY PRN 04/24/17 [History] amLODIPine BESYLATE [Norvasc] 5 mg PO DAILY 04/24/17 [History] Omeprazole 20 mg PO DAILY 10/12/21 [History] Acetaminophen Tab [Tylenol] 650 mg PO DIRECTED PRN 12/11/21 [History] Albuterol Inhaler [Ventolin Hfa Inhaler] 1 puff INHALATION DIRECTED PRN 12/11/21 [History] Docusate [Colace] 100 mg PO DAILY 12/11/21 [History] Furosemide [Lasix] 40 mg PO BID 12/11/21 [History] Gabapentin [Neurontin] 300 mg PO TID 12/11/21 [History] HYDROcodone/APAP 5-325MG [[place] 5-325] 1 tab PO HS PRN 12/11/21 [History] Montelukast [Singulair] 10 mg PO HS 12/11/21 [History] Ozempic (Unknown Dose) 1 dose SQ WEEKLY 12/11/21 [History] diphenhydrAMINE [Benadryl] 25 mg PO BID PRN 12/11/21 [History] Follow up Appointment(s)/Referral(s): Lillie Reynoso MD [STAFF PHYSICIAN] - 2 Weeks Activity/Diet/Wound Care/Special Instructions: do not drive until seen by Dr. Brooks may shower after 48 hours wear bra at all times Discharge Disposition: HOME SELF-CARE
[2021-12-13 14:02] VITALS: TEMP 96.9
[2021-12-13 14:03] VITALS: RESP 16
[2021-12-13 14:35] LABS: Glucose,Whole Blood 140 mg/dL (70-110)
[2021-12-13 15:03] VITALS: PULSE 74
[2021-12-13 15:19] VITALS: BP 125/72
--- NOTE | 2021-12-20 14:38 | MM ---
Prior Study Comparison: 04/10/2017 Bilateral Diagnostic Mammogram, [facility]. 09/04/2021 Bilateral Diagnostic Mammogram, [facility]. 10/26/2021 Left MG diagnostic mammo LT wo CAD., [facility]. Pathology Description: Approach: Medial to Lateral Needle Type: 7 cm Kopan The needle localization procedure with wire placement for surgical excision was explained to the patient. Benefits, alternatives, and risks were discussed. An informed consent was then obtained. A timeout was performed. The overlying skin was prepped in usual sterile fashion. Lidocaine was used as anesthetic into the skin and subcutaneous tissue up to the level of area of concern. A 9 cm needle was used. It was placed using a medial approach under mammographic guidance. A second 9 cm needle was utilized to bracket the area in question within the left breast. Subsequent 90 degrees mammogram show the needles to be in satisfactory position relative to the targeted area. The wires were placed and the needles withdrawn. The wire was fixed to patient's skin. Images were marked for surgeon. The patient tolerated the procedure well without any immediate complication. The patient was kept in the radiology department for sentinel node injection and a short stay after the procedure and then taken to surgery for surgical excision. Specimen: Biopsy marker and wires are identified in specimen mammogram. Impression: 1. Successful needle localization with bracketing wire placement and surgical excision of biopsy marker. Pathology: Pathology is pending. Pathology Results: Result: Malignant, Mucinous (colloid) carcinoma. A. 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 Other margins negative. See Surgical Pathology Cancer Case Summary. B. LEFT SENTINEL LYMPH NODE: Lymph node negative for metastasis. CK7 and KAMAR immunoperoxidase stains are confirmatory (controls appropriate). C. LEFT BREAST, NEW INFERIOR MARGIN, EXCISION: Benign breast tissue. D. LEFT BREAST, NEW MEDIAL MARGIN, EXCISION: Benign breast tissue. E. LEFT BREAST, NEW SUPERIOR MARGIN, EXCISION: Benign breast tissue. F. LEFT BREAST, NEW LATERAL MARGIN, EXCISION: Focal atypical ductal hyperplasia (ADH) immediately adjacent to, but not contacting the new lateral margin. Background benign fibrocystic changes including focal fibroadenomatoid hyperplasia. Overall Assessment: Malignant Management: Surgical Consultation of the left breast. Appropriate oncologic management. Electronically signed and approved by: Mendoza White D.O. Radiologis
--- NOTE | 2021-12-20 14:38 | MM ---
Prior Study Comparison: 04/10/2017 Bilateral Diagnostic Mammogram, [facility]. 09/04/2021 Bilateral Diagnostic Mammogram, [facility]. 10/26/2021 Left MG diagnostic mammo LT wo CAD., [facility]. Pathology Description: Approach: Medial to Lateral Needle Type: 7 cm Kopan The needle localization procedure with wire placement for surgical excision was explained to the patient. Benefits, alternatives, and risks were discussed. An informed consent was then obtained. A timeout was performed. The overlying skin was prepped in usual sterile fashion. Lidocaine was used as anesthetic into the skin and subcutaneous tissue up to the level of area of concern. A 9 cm needle was used. It was placed using a medial approach under mammographic guidance. A second 9 cm needle was utilized to bracket the area in question within the left breast. Subsequent 90 degrees mammogram show the needles to be in satisfactory position relative to the targeted area. The wires were placed and the needles withdrawn. The wire was fixed to patient's skin. Images were marked for surgeon. The patient tolerated the procedure well without any immediate complication. The patient was kept in the radiology department for sentinel node injection and a short stay after the procedure and then taken to surgery for surgical excision. Specimen: Biopsy marker and wires are identified in specimen mammogram. Impression: 1. Successful needle localization with bracketing wire placement and surgical excision of biopsy marker. Pathology: Pathology is pending. Pathology Results: Result: Malignant, Mucinous (colloid) carcinoma. A. 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 Other margins negative. See Surgical Pathology Cancer Case Summary. B. LEFT SENTINEL LYMPH NODE: Lymph node negative for metastasis. CK7 and KAMAR immunoperoxidase stains are confirmatory (controls appropriate). C. LEFT BREAST, NEW INFERIOR MARGIN, EXCISION: Benign breast tissue. D. LEFT BREAST, NEW MEDIAL MARGIN, EXCISION: Benign breast tissue. E. LEFT BREAST, NEW SUPERIOR MARGIN, EXCISION: Benign breast tissue. F. LEFT BREAST, NEW LATERAL MARGIN, EXCISION: Focal atypical ductal hyperplasia (ADH) immediately adjacent to, but not contacting the new lateral margin. Background benign fibrocystic changes including focal fibroadenomatoid hyperplasia. Overall Assessment: Malignant Management: Surgical Consultation of the left breast. Appropriate oncologic management. Electronically signed and approved by: Mendoza White D.O. Radiologis
== END 2021-12-13 15:52 | disposition home or self-care (01) ==
LOC: OR 07:50
PROVIDERS: ATTEND Surgery
DX: C50.812 Malignant neoplasm of overlapping sites of left female breast (principal); I25.10 Atherosclerotic heart disease of native coronary artery without angina pectoris; I10 Essential (primary) hypertension; E11.9 Type 2 diabetes mellitus without complications; E78.5 Hyperlipidemia, unspecified; K21.9 Gastro-esophageal reflux disease without esophagitis; R41.3 Other amnesia; Z17.0 Estrogen receptor positive status [ER+]; Z79.899 Other long term (current) drug therapy; Z88.5 Allergy status to narcotic agent; Z98.890 Other specified postprocedural states; Z87.891 Personal history of nicotine dependence; Z97.3 Presence of spectacles and contact lenses; Z97.2 Presence of dental prosthetic device (complete) (partial); Z80.3 Family history of malignant neoplasm of breast; Z80.6 Family history of leukemia
CPT/HCPCS: 88342; 88307; 88341; 76098; 19281; 38792; 19301; 38525; C1819; A9520; J0360; J1100; J2405; J0690; J3010; J2370; J0330; J2704; J1170; J1644; J2001

== ENCOUNTER → 2021-12-28 | Outpatient (CLI) | payer MEDICARE ==
--- NOTE | 2021-12-28 11:21 | P.PN ---
Progress Note - Text Progress Note Date: 12/28/21 Maria Luz is an 86 year old white female status post left breast lumpectomy and SNB on 12-13-21. Pathology revealed a 3.5 cm invasive mucinous carcinoma. Margins were negative with the exception of an focal area of disease posteriorly which was on the chest wall. Surgically dissection had been performed onto the pectoralis muscle there was therefore no further resection to be done for this. [place] lymph node was negative. The patient post operatively he is doing well. Lungs: Clear Heart: Regular rate and rhythm Incision: Clean and dry sutures remove Steri-Strips applied Incision the axilla clean and dry Patient doing well Follow-up with radiation oncology secondary to focal involvement in the posterior margin Follow-up medical oncology Follow-up. 3 months CC: Dr. Chris London
[2021-12-28 11:31] VITALS: BP 126/73; PULSE 63; RESP 18; TEMP 97.9
== END ==
LOC: WWCWWP 10:51
PROVIDERS: ATTEND Surgery
DX: C50.512 Malignant neoplasm of lower-outer quadrant of left female breast (principal); Z98.890 Other specified postprocedural states; Z88.5 Allergy status to narcotic agent; Z88.2 Allergy status to sulfonamides; Z87.891 Personal history of nicotine dependence

== ENCOUNTER → 2022-01-16 | Outpatient (CLI) | payer MEDICARE ==
--- NOTE | 2022-01-17 19:29 | BD ---
EXAMINATION TYPE: Axial Bone Density DATE OF EXAM: 01/16/2022 CLINICAL HISTORY: 86 years year old Female. ICD-10 CODE: C50.419 BREAST CA Height: 5 FT 1 IN Weight: 177 FRAX RISK QUESTIONS: Alcohol (3 or more units per day): NO Family History (Parent hip fracture): NO Glucocorticoids (More than 3mos): NO (Ex: prednisone, prednisolone, methylprednisolone, dexamethasone, and hydrocortisone). History of Fracture in Adulthood: YES Secondary Osteoporosis: 1. Type 1 Diabetes: NO 2. Hyperthyroidism: NO 3. Menopause before 45: YES 4. Malnutrition: NO 5. Chronic liver disease: NO Rheumatoid Arthritis: NO Current Tobacco Use: FORMER RISK FACTORS HISTORY OF: Surgery to Spine/Hip(right/left)/Wrist (right/left): NO Family History of Osteoporosis: NO Active: NO Diet low in dairy products/other sources of calcium: NO Postmenopausal woman: YES Take estrogen and/or progesterone medications: NO Lost more than 2 inches in height since high school: YES Frequent falls: UNSTEADY Poor Health: GOOD Hyperparathyroidism: NO Adrenal Insufficiency: NO MEDICATIONS: Additional Medications: ALBUTEROL, ARICEPT, ANASTROZOLE, FUROSIMIDE, NORCO, NORVASC, NEURONTIN, OMEPR AZOLE, POTASSIUM, SINGULAIR, XANAX, ZOCOR, ZOFRAN, OZEMBIC Additional History: RECENT BREAST CANCER DIAG EXAM MEASUREMENTS: Bone mineral densitometry was performed using the [employer]. Bone mineral density as measured about the Lumbar spine is: ----- L1-L4(G/cm2): 1.510 T Score Values are as follows: ----- L1: 1.0 ----- L2: 0.9 ----- L3: 2.9 ----- L4: 5.7 ----- L1-L4: 2.8 Bone mineral density has: INCREASED 13.0 % since study of: 2018 Bone mineral density about the R hip (g/cm2): 0.898 Bone mineral density about the L hip (g/cm2): 0.911 T Score values are as follows: -----R Neck: -1.0 -----L Neck: -0.9 -----R Total: -0.5 -----L Total: -0.6 Bone mineral density has: DECREASED -2.0 % since study of: 2018 FRAX%s: The graph provided illustrates a 15.6 % chance for a major osteoporotic fx and a 3.3 % chance for the hips probability for fx in 10 years time. IMPRESSION: Normal (Values between +1 and -1 indicate normal bone mass). However, note that measurements are bor dering on osteopenia at the hips. Consider repeating this study in 5 years or sooner if there is some new clinical indication. NOTE: T-SCORE=SD OF THE YOUNG ADULT MEAN.
== END | disposition home or self-care (01) ==
LOC: RADBDWWP 14:53
PROVIDERS: ATTEND Internal Medicine
DX: C50.419 Malignant neoplasm of upper-outer quadrant of unspecified female breast (principal)
CPT/HCPCS: 77080

== ENCOUNTER → 2022-04-06 | Outpatient (CLI) | payer MEDICARE ==
[2022-04-06 12:28] VITALS: BP 127/72; PULSE 69; RESP 16
--- NOTE | 2022-04-06 13:28 | P.PN ---
Subjective Progress Note Date: 04/06/22 Principal diagnosis: mucinous cancer left breast Maria Luz is an 87 year old white female status post left breast lumpectomy and SNB on 12-13-21. Her margins showed a focal are which was (+). This was deep and on the pect muscle. She is on anestrazole. She did not have chemotherapy. Still has some mild tenderness at the lumpectomy site. She is not complaining of any new lumps masses or nodules of concern in either breast. Note from Dr. Kitchen reviewed 01-31-22. Nicotine: stopped 65 years ago caffiene: 2 cups/day chocolate: seldom BCP:none hormones: none Family History: maternal aunt: breast cancer maternal grandfather: of cancer daughter: of cancer; leukemia Hormonal History: menarche: 14 breast fed: yes, age at first : 23 menopause: 51 Surgical History: gallbladder hernia repair breast biopsy bilateral Medical History: diverticulitis memory impairment HTN DM hyperlipidemia Social History: nicotine: stopped 65 years ago alcohol: none drugs: none - Constitutional Comment: hotflashes - EENT Comment: wears glasses Eyes: bilateral blurred vision Ears: left: decreased hearing Ears, nose, mouth and throat: Denies headache, Denies sore throat - Breasts Breasts: bilateral: as per HPI - Cardiovascular Cardiovascular: Denies chest pain, Denies shortness of breath - Respiratory Comment: tickling in her throat Respiratory: Reports cough - Gastrointestinal Gastrointestinal: Denies abdominal pain, Denies diarrhea, Denies nausea, Denies vomiting - Genitourinary (Female) Genitourinary: Denies dysuria, Denies hematuria - Menstruation Menstruation: Reports postmenopausal - Musculoskeletal Comment: back pain lower back - Integumentary Comment: dry skin - Neurological Comment: numbness in feet and legs bilateral - Psychiatric Psychiatric: Reports anxiety - Endocrine Comment: diabetes Endocrine: Denies fatigue, Denies weight change - Hematologic/Lymphatic Comment: none - Allergic/Immunologic Allergic/Immunologic: Reports seasonal allergies Objective - Vital Signs Vital signs: Vital Signs Temp Pulse 69 04/06/22 12:23 Resp 16 04/06/22 12:23 BP 127/72 04/06/22 12:23 Pulse Ox 95 04/06/22 12:23 FiO2 Intake & Output 04/05/22 04/06/22 04/06/22 18:59 06:59 18:59 Weight 84.822 kg - Constitutional General appearance: Present: cooperative - EENT Eyes: Present: EOMI ENT: Present: hard of hearing - Neck Neck: Present: normal ROM - Respiratory Respiratory: bilateral: CTA - Cardiovascular Heart sounds: normal: S1, S2 - Integumentary Integumentary: Present: normal turgor - Musculoskeletal Musculoskeletal Comment(s): uses a cane - Psychiatric Psychiatric: Present: A&O x's 3, appropriate affect, intact judgment & insight - Additional findings Additional findings: Breast examination: Right breast fibrocystic changes or dominant masses or nodules of concern Right axilla: No adenopathy of concern Left breast: Well-healed scar from recent surgery, no dominant masses or nodules of concern Left axilla: No adenopathy of concern Assessment and Plan Assessment: Impression: Left breast stage IA mucinous adenocarcinoma, ER/VT positive HER-2/nazia negative status post lumpectomy with focal questionable positive margin on the pectoralis muscle, patient is on anastrozole, she declined radiation therapy Plan: Close surveillance Left breast mammogram and 3 months with physician exam at that time Continue anastrozole Follow [place] or any questions or concerns CC: Dr. Chris London
== END | disposition home or self-care (01) ==
LOC: WWCWWP 11:53
PROVIDERS: ATTEND Surgery
DX: Z53.9 Procedure and treatment not carried out, unspecified reason (principal)

== ENCOUNTER 2022-04-29 02:25 | Emergency (ER) | payer MEDICARE ==
[2022-04-29 02:33] VITALS: TEMP 100.5
[2022-04-29] MEDS ORDERED: ALBUTEROL NEBULIZED 2.5 MG/3 ML INHALATION STA (03:34)
[2022-04-29] MEDS ORDERED: ACETAMINOPHEN TAB 325 MG TAB PO STA (03:34)
--- NOTE | 2022-04-29 03:37 | ED ---
Fever HPI - General Chief Complaint: Fever Stated Complaint: Fever, nausea Time Seen by Provider: 04/29/22 02:43 Source: patient Mode of arrival: wheelchair Limitations: no limitations - History of Present Illness Initial Comments: 's patient is an 87-year-old woman who presents to have evaluation for cough and fever. History is from both the patient and her . They state that she had been well and then 4 days ago her granddaughter visited. The granddaughter had a cold and on the following day the patient began having a little bit of cough. This did become progressively worse and today patient also having fever. Patient denies chest pain. She denies dyspnea. No change in urination or bowel movements. MD Complaint: fever, other -: days(s) Temperature Source: subjective Context: sick contacts Associated Symptoms: nasal congestion, cough Treatments Prior to Arrival: none - Related Data Home Medications Medication Instructions Recorded Confirmed Simvastatin [Zocor] 20 mg PO HS 06/14/16 04/17/22 ALPRAZolam [Xanax] 0.25 mg PO HS 04/24/17 04/17/22 Simethicone [Gas-X] 125 mg PO DAILY PRN 04/24/17 04/17/22 amLODIPine BESYLATE [Norvasc] 5 mg PO DAILY 04/24/17 04/17/22 Omeprazole 20 mg PO DAILY 10/12/21 04/17/22 Acetaminophen Tab [Tylenol] 650 mg PO DIRECTED PRN 12/11/21 04/17/22 Albuterol Inhaler [Ventolin Hfa 1 puff INHALATION DIRECTED PRN 12/11/21 04/17/22 Inhaler] Docusate [Colace] 100 mg PO DAILY 12/11/21 04/17/22 Furosemide [Lasix] 40 mg PO BID 12/11/21 04/17/22 Gabapentin [Neurontin] 300 mg PO TID 12/11/21 04/17/22 HYDROcodone/APAP 5-325MG [[place] 1 tab PO HS PRN 12/11/21 04/17/22 5-325] Montelukast [Singulair] 10 mg PO HS 12/11/21 04/17/22 Ozempic (Unknown Dose) 1 dose SQ WEEKLY 12/11/21 04/17/22 diphenhydrAMINE [Benadryl] 25 mg PO BID PRN 12/11/21 04/17/22 Previous Rx's Medication Instructions Recorded Azithromycin [Zithromax] 0 mg PO DIRECTED #6 tab 04/29/22 Allergies Allergy/AdvReac Type Severity Reaction Status Date / Time morphine Allergy Itching Verified 04/29/22 02:31 Sulfa (Sulfonamide Allergy Rash/Hives Verified 04/29/22 02:31 Antibiotics) Review of Systems ROS Statement: Those systems with pertinent positive or pertinent negative responses have been documented in the HPI. ROS Other: All systems not noted in ROS Statement are negative. Constitutional: Reports: fever. Denies: chills, weakness ENT: Reports: congestion. Denies: throat pain Respiratory: Reports: cough. Denies: dyspnea, hemoptysis Cardiovascular: Denies: chest pain, palpitations, edema, syncope Gastrointestinal: Denies: abdominal pain, vomiting, diarrhea Genitourinary: Denies: dysuria, hematuria Neurological: Denies: headache Past Medical History Past Medical History: Asthma, Cancer, Diabetes Mellitus, GERD/Reflux, Hyperlipidemia, Hypertension, Memory Impairment, Myocardial Infarction (ME) Additional Past Medical History / Comment(s): diverticulitis, sciatica, neuropathy legs., breast cancer Last Myocardial Infarction Date:: unknown History of Any Multi-Drug Resistant Organisms: None Reported Past Surgical History: Cholecystectomy, Hernia Repair Additional Past Surgical History / Comment(s): breast lumpectomy x3 Past Anesthesia/Blood Transfusion Reactions: No Reported Reaction Past Psychological History: Anxiety Smoking Status: Former smoker Past Alcohol Use History: None Reported Past Drug Use History: None Reported - Past Family History Father Family Medical History: Congestive Heart Failure (CHF), COPD Mother Family Medical History: Diabetes Mellitus Additional Family Medical History / Comment(s): of heart attack 92 Daughter(s) Family Medical History: Cancer General Exam Limitations: no limitations General appearance: alert, in no apparent distress Head exam: Present: atraumatic, normocephalic Eye exam: Present: normal appearance. Absent: scleral icterus, conjunctival injection Respiratory exam: Present: wheezes. Absent: respiratory distress, rales, rhonchi, stridor Cardiovascular Exam: Present: regular rate, normal rhythm, systolic murmur. Absent: diastolic murmur, rubs, gallop GI/Abdominal exam: Present: soft. Absent: distended, tenderness, guarding, rebound, rigid, mass Extremities exam: Present: normal inspection, normal capillary refill. Absent: pedal edema, calf tenderness Back exam: Present: normal inspection Skin exam: Present: warm, dry, intact, normal color. Absent: rash Course Vital Signs 04/29/22 04/29/22 04/29/22 02:31 03:05 04:27 Temperature 100.5 F H Pulse Rate 100 85 Respiratory 16 20 Rate Blood Pressure 149/78 O2 Sat by Pulse 98 Oximetry 04/29/22 04:43 Temperature Pulse Rate 91 Respiratory Rate Blood Pressure O2 Sat by Pulse Oximetry Medical Decision Making - Lab Data Lab Results 04/29/22 04/29/22 Range/Units 03:04 03:04 Coronavirus (PCR) Not Detected (Not Detectd) Influenza Type A RNA Not Detected (Not Detectd) Influenza Type B (PCR) Not Detected (Not Detectd) Disposition Clinical Impression: Pneumonia Disposition: HOME SELF-CARE Condition: Fair Instructions (If sedation given, give patient instructions): Pneumonia (ED) Prescriptions: Azithromycin [Zithromax] 0 mg PO DIRECTED #6 tab Is patient prescribed a controlled substance at d/c from ED?: No Referrals: Chris London MD [Primary Care Provider] - 1-2 days
--- NOTE | 2022-04-29 03:53 | XR ---
EXAMINATION TYPE: XR chest 2V DATE OF EXAM: 04/29/2022 COMPARISON: 08/20/2017 HISTORY: Cough and fever TECHNIQUE: 2 views FINDINGS: Heart is enlarged. There is some mild infiltrate left lung base. No heart failure. Thoracic aorta is atheromatous. IMPRESSION: There is some mild pleural reaction and infiltrate left lung base which is new compared t o the old exam. No heart failure.
[2022-04-29] MEDS ORDERED: AZITHROMYCIN 500 MG TAB PO STA (05:06)
[2022-04-29 05:53] VITALS: PULSE 84
[2022-04-29 06:05] VITALS: BP 136/74; RESP 17
== END 2022-04-29 06:05 | disposition home or self-care (01) ==
LOC: EC 02:25
DX: J18.9 Pneumonia, unspecified organism (principal); J45.909 Unspecified asthma, uncomplicated; E11.9 Type 2 diabetes mellitus without complications; K21.9 Gastro-esophageal reflux disease without esophagitis; E78.5 Hyperlipidemia, unspecified; I10 Essential (primary) hypertension; I25.2 Old myocardial infarction; F41.9 Anxiety disorder, unspecified; Z87.891 Personal history of nicotine dependence; Z88.2 Allergy status to sulfonamides; Z79.51 Long term (current) use of inhaled steroids; Z20.822 Contact with and (suspected) exposure to COVID-19
CPT/HCPCS: 71046; 87502; 87635; 94640; 99283

== ENCOUNTER → 2022-09-11 | Outpatient (CLI) | payer MEDICARE ==
--- NOTE | 2022-09-11 09:01 | MM ---
Reason for Exam: Follow-up at short interval from prior study. Last screening mammogram was performed 12 month(s) ago. Patient History: Menarche at age 13. First Full-Term at age 22. Postmenopausal. Breast cancer, left, age 86. Breast cancer, left, age 86. Currently using Tamoxifen, starting at age 86. 12/13/2021, Lumpectomy on the Left side. 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 09/24/2008, Excisional Biopsy on the Right side. 09/24/2008, Lumpectomy on the Right side. Excisional Biopsy on the Right side. Excisional Biopsy on the Left side. Excisional Biopsy on the Left side. 10/26/2021, Malignant US breast needle core LT on the left side. 03/23/1999, Benign Excisional Biopsy on the right side. Maternal aunt had breast cancer, age 55. Tissue Density: There are scattered fibroglandular densities. Findings: Analyzed By CAD. Benign-appearing vascular calcifications bilaterally are redemonstrated. There are few scattered benign-appearing round calcifications in the right breast redemonstrated. There are new surgical clips and distortion in the anterior to middle depth central left breast with adjacent skin thickening and infolding presumed posttreatment change or patient's new baseline. A group of benign-appearing calcifications in the middle depth upper aspect are redemonstrated. Overall Assessment: Probably benign, BI-RAD 3 Management: Diagnostic Mammogram of the left breast in 6 months. Cautionary short-term follow-up to establish new left breast baseline. Electronically signed and approved by: Teddy Maravilla M.D.
== END | disposition home or self-care (01) ==
LOC: RADMAMWWP 08:24
PROVIDERS: ATTEND Surgery
DX: R92.8 Other abnormal and inconclusive findings on diagnostic imaging of breast (principal); Z85.3 Personal history of malignant neoplasm of breast; Z78.0 Asymptomatic menopausal state; Z80.3 Family history of malignant neoplasm of breast
CPT/HCPCS: 77066; G0279; 77062

== ENCOUNTER → 2022-09-13 | Outpatient (CLI) | payer MEDICARE ==
[2022-09-13 16:20] VITALS: BP 137/64; PULSE 68; RESP 16; TEMP 98.1
--- NOTE | 2022-09-13 16:28 | P.PN ---
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 Her margins showed a focal are which was (+). This was deep and on the pect muscle. She is on anestrazole. She did not have chemotherapy. Still has some mild tenderness at the lumpectomy site. She is not complaining of any new lumps masses or nodules of concern in either breast. He underwent a bilateral mammogram on . This was BIRADS. Repeat left breast mammogram in 6 months was recommended. She is not complaining of any new lumps masses or nodules of concern in either breast. The patient is presently taking anastrozole. She did not have any radiation therapy. She is also taking calcium and vitamin D supplementation. Note Dr. Kitchen 05-21-22 reviewed Nicotine: stopped 65 years ago caffiene: 2 cups/day chocolate: seldom BCP:none hormones: none Family History: maternal aunt: breast cancer maternal grandfather: of cancer daughter: of cancer; leukemia Hormonal History: menarche: 14 breast fed: yes, age at first : 23 menopause: 51 Surgical History: gallbladder hernia repair breast biopsy bilateral left breast lumpectomy Medical History: diverticulitis memory impairment HTN DM hyperlipidemia Social History: nicotine: stopped 65 years ago alcohol: none drugs: none - Constitutional Comment: hotflashes - EENT Comment: wears glasses Eyes: bilateral blurred vision Ears: left: decreased hearing Ears, nose, mouth and throat: Denies headache, Denies sore throat - Breasts Breasts: bilateral: as per HPI - Cardiovascular Cardiovascular: Denies chest pain, Denies shortness of breath - Respiratory Comment: tickling in her throat Respiratory: Reports cough - Gastrointestinal Gastrointestinal: Denies abdominal pain, Denies diarrhea, Denies nausea, Denies vomiting - Genitourinary (Female) Genitourinary: Denies dysuria, Denies hematuria - Menstruation Menstruation: Reports postmenopausal - Musculoskeletal Comment: back pain lower back - Integumentary Comment: dry skin - Neurological Comment: numbness in feet and legs bilateral - Psychiatric Psychiatric: Reports anxiety - Endocrine Comment: diabetes Endocrine: Denies fatigue, Denies weight change - Hematologic/Lymphatic Comment: none - Allergic/Immunologic Allergic/Immunologic: Reports seasonal allergies Objective - Vital Signs Vital signs: Intake & Output 09/12/22 09/13/22 09/13/22 18:59 06:59 18:59 Weight 83.007 kg - Constitutional General appearance: Present: cooperative - EENT Eyes: Present: EOMI ENT: Present: hard of hearing - Neck Neck: Present: normal ROM - Respiratory Respiratory: bilateral: CTA - Cardiovascular Heart sounds: normal: S1, S2 Abnormal Heart Sounds: Present: systolic murmur - Gastrointestinal General gastrointestinal: Present: soft - Integumentary Integumentary: Present: normal turgor - Musculoskeletal Musculoskeletal Comment(s): wheel chair dependant - Psychiatric Psychiatric: Present: A&O x's 3, appropriate affect, intact judgment & insight - Additional findings Additional findings: Breast examination: Right breast fibrocystic changes or dominant masses or nodules of concern Right axilla: subcutaneous nodule, ? sebacous cyst, no adenoapathy of concern Left breast: Well-healed scar from recent surgery, no dominant masses or nodules of concern Left axilla: No adenopathy of concern Assessment and Plan Assessment: Impression: diverticulitis memory impairment HTN DM hyperlipidemia Left breast mucinous carcinoma diagnosed 2021, treated with a lumpectomy, no evidence of recurrence bilateral mammogram [id number], Bio-Rad 3, repeat left breast mammogram in 6 months The patient is presently on anastrozole Plan: Continue follow-up medical oncology Follow-up bilateral mammogram in 1 year Follow-up left breast mammogram in 6 months Follow-up here in 6 months CC: DR. Chris London
== END ==
LOC: WWCWWP 15:27
PROVIDERS: ATTEND Surgery
DX: C50.912 Malignant neoplasm of unspecified site of left female breast (principal); E11.9 Type 2 diabetes mellitus without complications; E78.5 Hyperlipidemia, unspecified; I10 Essential (primary) hypertension; K57.92 Diverticulitis of intestine, part unspecified, without perforation or abscess without bleeding; Z88.5 Allergy status to narcotic agent; Z88.2 Allergy status to sulfonamides; Z87.891 Personal history of nicotine dependence

== ENCOUNTER 2022-10-19 04:51 | Emergency (ER) | payer MEDICARE ==
[2022-10-19 05:07] VITALS: TEMP 98.2
[2022-10-19] MEDS ORDERED: HYDROmorphone 0.5 MG/0.5 ML SYRINGE IVP STA (06:16)
[2022-10-19] MEDS ORDERED: KETOROLAC 15 MG/ML 1 ML VIAL IVP STA (06:16)
--- NOTE | 2022-10-19 06:37 | ED ---
Back Pain HPI - General Chief Complaint: Back Pain/Injury Stated Complaint: Lower Back Pain Time Seen by Provider: 10/19/22 05:59 Source: patient, family, RN notes reviewed Mode of arrival: EMS Limitations: no limitations - History of Present Illness Initial Comments: This is an 87-year-old female who presents to the emergency department for mid to lower back pain. States that this started 5 days ago. Denies any injuries. This wraps around to her abdomen. Describes this as achy and sharp. Denies any history back problems. However, she states that she's had back pain when she's had pneumonia in the past. She does have associated coughing, which she states has been present for several days as well. Denies any chest pain or shortness of breath. Her notes that she has been out of her gabapentin for 3 days, and wonders if that is contributing to this. She is supposed to get this refilled today. Denies any loss of bowel/bladder control or saddle anesthesia. Denies any fevers, chills, sore throat, dyspnea, chest pain, palpitations, abdominal pain, nausea, vomiting, diarrhea, or headaches. MD Complaint: back pain Onset/Timin -: days(s) Radiation: abdomen - Related Data Home Medications Medication Instructions Recorded Confirmed Simvastatin [Zocor] 20 mg PO HS 06/14/16 09/13/22 ALPRAZolam [Xanax] 0.25 mg PO HS 04/24/17 09/13/22 Simethicone [Gas-X] 125 mg PO DAILY PRN 04/24/17 09/13/22 amLODIPine BESYLATE [Norvasc] 5 mg PO DAILY 04/24/17 09/13/22 Omeprazole 20 mg PO DAILY 10/12/21 09/13/22 Albuterol Inhaler [Ventolin Hfa 1 puff INHALATION DIRECTED PRN 12/11/21 09/13/22 Inhaler] Docusate [Colace] 100 mg PO DAILY 12/11/21 09/13/22 Furosemide [Lasix] 40 mg PO BID 12/11/21 09/13/22 Gabapentin [Neurontin] 300 mg PO TID 12/11/21 09/13/22 HYDROcodone/APAP 5-325MG [[place] 1 tab PO HS PRN 12/11/21 09/13/22 5-325] Montelukast [Singulair] 10 mg PO HS 12/11/21 09/13/22 Ozempic (Unknown Dose) 1 dose SQ WEEKLY 12/11/21 09/13/22 Biotin 5 mg PO DAILY 09/13/22 09/13/22 Calcium Carbonate [Calcium] 600 mg PO DAILY 09/13/22 09/13/22 Cholecalciferol [Vitamin D3 (10 10 mcg PO DAILY 09/13/22 09/13/22 Mcg = 400 Iu)] Ibuprofen [Motrin] 600 mg PO DIRECTED PRN 09/13/22 09/13/22 Potassium Gluconate [Potassium 600 mg PO DAILY 09/13/22 09/13/22 (2.5 MEQ = 600 MG)] Previous Rx's Medication Instructions Recorded Azithromycin [Zithromax] 0 mg PO DIRECTED #6 tab 04/29/22 Azithromycin [Zithromax] 250 mg PO DIRECTED 5 Days #6 tab 10/19/22 Diclofenac Sodium [Voltaren] 75 mg PO BID PRN #20 tab 10/19/22 Lidocaine 5% Patch [Lidoderm 5% 1 patch TOPICAL DAILY PRN #30 patch 10/19/22 Patch] Allergies Allergy/AdvReac Type Severity Reaction Status Date / Time morphine Allergy Itching Verified 10/19/22 05:07 Sulfa (Sulfonamide Allergy Rash/Hives Verified 10/19/22 05:07 Antibiotics) Review of Systems ROS Statement: Those systems with pertinent positive or pertinent negative responses have been documented in the HPI. ROS Other: All systems not noted in ROS Statement are negative. Past Medical History Past Medical History: Asthma, Cancer, Diabetes Mellitus, GERD/Reflux, Hyperlipidemia, Hypertension, Memory Impairment, Myocardial Infarction (CO) Additional Past Medical History / Comment(s): diverticulitis, sciatica, neuropathy legs., breast cancer Last Myocardial Infarction Date:: unknown History of Any Multi-Drug Resistant Organisms: None Reported Past Surgical History: Cholecystectomy, Hernia Repair Additional Past Surgical History / Comment(s): breast lumpectomy x3 Past Anesthesia/Blood Transfusion Reactions: No Reported Reaction Past Psychological History: Anxiety Smoking Status: Former smoker Past Alcohol Use History: None Reported Past Drug Use History: None Reported - Past Family History Father Family Medical History: Congestive Heart Failure (CHF), COPD Mother Family Medical History: Diabetes Mellitus Additional Family Medical History / Comment(s): of heart attack 92 Daughter(s) Family Medical History: Cancer General Exam Limitations: no limitations General appearance: alert, in distress Head exam: Present: atraumatic, normocephalic, normal inspection Respiratory exam: Present: normal lung sounds bilaterally. Absent: respiratory distress, wheezes, rales, rhonchi, stridor Cardiovascular Exam: Present: regular rate, normal rhythm, normal heart sounds. Absent: systolic murmur, diastolic murmur, rubs, gallop, clicks GI/Abdominal exam: Present: soft, tenderness (mid abdomen), normal bowel sounds. Absent: distended Back exam: Present: normal inspection, tenderness (mid to lower back) Neurological exam: Present: alert, oriented X3, CN II-XII intact Psychiatric exam: Present: normal affect, normal mood Skin exam: Present: warm, dry, intact, normal color. Absent: rash Course Vital Signs 10/19/22 10/19/22 10/19/22 05:04 06:27 10:07 Temperature 98.2 F Pulse Rate 83 77 82 Respiratory 18 15 18 Rate Blood Pressure 141/72 145/77 136/72 O2 Sat by Pulse 96 95 98 Oximetry Medical Decision Making - Medical Decision Making This is an 87-year-old female who presents to the emergency department for back pain and abdominal pain. Was pt. sent in by a medical professional or institution? @ -No Did you speak to anyone other than the patient for history? @ -Her Did you review nursing and triage notes? @ -Yes, and I agree, it is accurate with regards to the patient's symptoms. Were old charts reviewed? @ -No Differential Diagnosis? @ -Differential Back Pain: Strain, zoster, cauda equina syndrome, epidural abscess, vertebral osteomyelitis, discitis, fracture, subluxation, disc herniation, DJD, spinal stenosis, dissection, AAA, pancreatitis, peptic ulcer disease, pyelonephritis, kidney stone, this is not meant to be an all-inclusive list. EKG interpreted by me (3pts min.)? @ -Sinus rhythm with occasional PVCs. Left ventricular hypertrophy. Ventricular rate 70 beats per minute, AR interval 182 ms, QRS duration 102 ms, QTC 447 ms. X-rays interpreted by me (1pt min.)? @ -Chest x-ray obtained. My interpretation identifies a small left pleural effusion. CT interpreted by me (1pt min.)? @ -Computed tomography scan of the abdomen and pelvis obtained. My interpretation identifies no evidence of bowel wall thickening, ureteral calculus, or aortic aneurysm. What testing was considered but not performed? (CT, X-rays, U/S, labs)? Why? @ -None What meds were considered but not given? Why? @ -None Did you discuss the management of the patient with other professionals? @ -No Did you reconcile home meds? @ -No Was smoking cessation discussed for >3mins.? @ -No Was critical care preformed (if so, how long)? @ -No Were there social determinants of health that impacted care today? How? (Homelessness, low income, unemployed, alcoholism, drug addiction, transportation, low edu. Level, literacy, decrease access to med. care, assisted, rehab)? @ -No Was there de-escalation of care discussed even if they declined? (Discuss DNR or withdrawal of care, Hospice)? @ -No What co-morbidities impacted this encounter? (DM, HTN, Smoking, COPD, CAD, Cancer, CVA, Hep., AIDS, mental health diagnosis, sleep apnea, morbid obesity)? @ -Asthma, DM, HTN, HLD, memory impairment Was patient admitted / discharged? @ -Discharged. On examination, the patient had abdominal tenderness with the back pain. The back pain was also reproducible. Given this, with the patient's multiple comorbidities, and the fact that there was no known injury, lab work and imaging were obtained. Patient also has significant coughing on examination, prompting a chest x-ray to be ordered. Lab work obtained revealing leukocytosis. Chest x-ray reveals a left pleural effusion and stable cardiomegaly. BNP negative for signs of CHF. Computed tomography scan of the abdomen and pelvis was obtained as well. This reveals no acute process to account for the patient's symptoms. Given the leukocytosis with left pleural effusion, it is possible that there is a developing pneumonia or consolidation hidden within the pleural effusion. Additionally, the patient has ongoing coughing and reports a history of back pain with pneumonia. Will subsequently treat the patient with a course of azithromycin. Prescription for azithromycin, diclofenac, and lidocaine patches provided with dosing instructions reviewed. Patient is instructed to take the Diclofenac with Tylenol if needed and avoid any other jmew-jhd-tctniui anti-inflammatories such as ibuprofen with the Diclofenac. She'll follow with her primary care provider for reevaluation of ongoing symptoms. Undiagnosed new problem with uncertain prognosis? @ -None Drug Therapy requiring intensive monitoring for toxicity (Heparin, Nitro, Insulin, Cardizem)? @ -None Were any procedures done? @ -None Diagnosis/symptom? @ -Back pain, abdominal pain, pneumonia Acute, or Chronic, or Acute on Chronic? @ -Acute Uncomplicated (without systemic symptoms) or Complicated (systemic symptoms)? @ -Uncomplicated Side effects of treatment? @ -None Exacerbation, Progression, or Severe Exacerbation] @ -Not applicable Poses a threat to life or bodily function? @ -No Return precautions reviewed in depth, the patient is instructed to return to the emergency department with any new, worsening, or concerning symptoms. Patient verbalized understanding. This case was discussed in detail with the attending ED physician, Dr. Velasco. Presentation, findings, and treatment plan discussed in detail as well. - Lab Data Result diagrams: 10/19/22 06:30 10/19/22 06:30 Lab Results 10/19/22 10/19/22 10/19/22 Range/Units 06:30 06:30 06:30 WBC 13.0 H (3.8-10.6) k/uL RBC 4.73 (3.80-5.40) m/uL Hgb 13.3 (11.4-16.0) gm/dL Hct 42.8 (34.0-46.0) % MCV 90.3 (80.0-100.0) fL MCH 28.0 (25.0-35.0) pg MCHC 31.1 (31.0-37.0) g/dL RDW 13.0 (11.5-15.5) % Plt Count 307 (150-450) k/uL MPV 7.1 Neutrophils % 79 % Lymphocytes % 12 % Monocytes % 6 % Eosinophils % 2 % Basophils % 0 % Neutrophils # 10.3 H (1.3-7.7) k/uL Lymphocytes # 1.5 (1.0-4.8) k/uL Monocytes # 0.8 (0-1.0) k/uL Eosinophils # 0.3 (0-0.7) k/uL Basophils # 0.0 (0-0.2) k/uL PT 10.3 (9.0-12.0) sec INR 1.0 (<1.2) APTT 24.5 (22.0-30.0) sec Sodium 137 (137-145) mmol/L Potassium 3.5 (3.5-5.1) mmol/L Chloride 96 L (98-107) mmol/L Carbon Dioxide 32 H (22-30) mmol/L Anion Gap 9 mmol/L BUN 13 (7-17) mg/dL Creatinine 0.88 (0.52-1.04) mg/dL Est GFR (CKD-EPI)AfAm 69 (>60 ml/min/1.73 sqM) Est GFR (CKD-EPI)NonAf 60 (>60 ml/min/1.73 sqM) Glucose 134 H (74-99) mg/dL Plasma Lactic Acid Hilario (0.7-2.0) mmol/L Calcium 9.0 (8.4-10.2) mg/dL Total Bilirubin 0.5 (0.2-1.3) mg/dL AST 19 (14-36) U/L ALT 21 (4-34) U/L Alkaline Phosphatase 82 (38-126) U/L Troponin I (0.000-0.034) ng/mL NT-Pro-B Natriuret Pep pg/mL Total Protein 7.1 (6.3-8.2) g/dL Albumin 4.0 (3.5-5.0) g/dL Urine Color Urine Appearance (Clear) Urine pH (5.0-8.0) Ur Specific [place] (1.001-1.035) Urine Protein (Negative) Urine Glucose (UA) (Negative) Urine Ketones (Negative) Urine Blood (Negative) Urine Nitrite (Negative) Urine Bilirubin (Negative) Urine Urobilinogen (<2.0) mg/dL Ur Leukocyte Esterase (Negative) Urine RBC (0-5) /hpf Urine WBC (0-5) /hpf Ur Squamous Epith Cells (0-4) /hpf Urine Mucus (None) /hpf 10/19/22 10/19/22 10/19/22 Range/Units 06:30 06:30 06:30 WBC (3.8-10.6) k/uL RBC (3.80-5.40) m/uL Hgb (11.4-16.0) gm/dL Hct (34.0-46.0) % MCV (80.0-100.0) fL MCH (25.0-35.0) pg MCHC (31.0-37.0) g/dL RDW (11.5-15.5) % Plt Count (150-450) k/uL MPV Neutrophils % % Lymphocytes % % Monocytes % % Eosinophils % % Basophils % % Neutrophils # (1.3-7.7) k/uL Lymphocytes # (1.0-4.8) k/uL Monocytes # (0-1.0) k/uL Eosinophils # (0-0.7) k/uL Basophils # (0-0.2) k/uL PT (9.0-12.0) sec INR (<1.2) APTT (22.0-30.0) sec Sodium (137-145) mmol/L Potassium (3.5-5.1) mmol/L Chloride (98-107) mmol/L Carbon Dioxide (22-30) mmol/L Anion Gap mmol/L BUN (7-17) mg/dL Creatinine (0.52-1.04) mg/dL Est GFR (CKD-EPI)AfAm (>60 ml/min/1.73 sqM) Est GFR (CKD-EPI)NonAf (>60 ml/min/1.73 sqM) Glucose (74-99) mg/dL Plasma Lactic Acid Hilario 1.3 (0.7-2.0) mmol/L Calcium (8.4-10.2) mg/dL Total Bilirubin (0.2-1.3) mg/dL AST (14-36) U/L ALT (4-34) U/L Alkaline Phosphatase (38-126) U/L Troponin I <0.012 (0.000-0.034) ng/mL NT-Pro-B Natriuret Pep 462 pg/mL Total Protein (6.3-8.2) g/dL Albumin (3.5-5.0) g/dL Urine Color Urine Appearance (Clear) Urine pH (5.0-8.0) Ur Specific [place] (1.001-1.035) Urine Protein (Negative) Urine Glucose (UA) (Negative) Urine Ketones (Negative) Urine Blood (Negative) Urine Nitrite (Negative) Urine Bilirubin (Negative) Urine Urobilinogen (<2.0) mg/dL Ur Leukocyte Esterase (Negative) Urine RBC (0-5) /hpf Urine WBC (0-5) /hpf Ur Squamous Epith Cells (0-4) /hpf Urine Mucus (None) /hpf 10/19/22 Range/Units 08:25 WBC (3.8-10.6) k/uL RBC (3.80-5.40) m/uL Hgb (11.4-16.0) gm/dL Hct (34.0-46.0) % MCV (80.0-100.0) fL MCH (25.0-35.0) pg MCHC (31.0-37.0) g/dL RDW (11.5-15.5) % Plt Count (150-450) k/uL MPV Neutrophils % % Lymphocytes % % Monocytes % % Eosinophils % % Basophils % % Neutrophils # (1.3-7.7) k/uL Lymphocytes # (1.0-4.8) k/uL Monocytes # (0-1.0) k/uL Eosinophils # (0-0.7) k/uL Basophils # (0-0.2) k/uL PT (9.0-12.0) sec INR (<1.2) APTT (22.0-30.0) sec Sodium (137-145) mmol/L Potassium (3.5-5.1) mmol/L Chloride (98-107) mmol/L Carbon Dioxide (22-30) mmol/L Anion Gap mmol/L BUN (7-17) mg/dL Creatinine (0.52-1.04) mg/dL Est GFR (CKD-EPI)AfAm (>60 ml/min/1.73 sqM) Est GFR (CKD-EPI)NonAf (>60 ml/min/1.73 sqM) Glucose (74-99) mg/dL Plasma Lactic Acid Hilario (0.7-2.0) mmol/L Calcium (8.4-10.2) mg/dL Total Bilirubin (0.2-1.3) mg/dL AST (14-36) U/L ALT (4-34) U/L Alkaline Phosphatase (38-126) U/L Troponin I (0.000-0.034) ng/mL NT-Pro-B Natriuret Pep pg/mL Total Protein (6.3-8.2) g/dL Albumin (3.5-5.0) g/dL Urine Color Yellow Urine Appearance Clear (Clear) Urine pH 6.0 (5.0-8.0) Ur Specific [place] >1.050 H (1.001-1.035) Urine Protein 1+ H (Negative) Urine Glucose (UA) Negative (Negative) Urine Ketones 1+ H (Negative) Urine Blood Negative (Negative) Urine Nitrite Negative (Negative) Urine Bilirubin Negative (Negative) Urine Urobilinogen 2.0 (<2.0) mg/dL Ur Leukocyte Esterase Small H (Negative) Urine RBC 7 H (0-5) /hpf Urine WBC 3 (0-5) /hpf Ur Squamous Epith Cells 2 (0-4) /hpf Urine Mucus Rare H (None) /hpf - Radiology Data Radiology results: report reviewed, image reviewed Disposition Clinical Impression: Lower back pain, Abdominal pain, Pleural effusion, left Disposition: HOME SELF-CARE Instructions (If sedation given, give patient instructions): Abdominal Pain (ED), Back Pain (ED) Additional Instructions: Return to the emergency department with any new, worsening, or concerning symptoms. Take the antibiotics as prescribed for 5 days. You can take the diclofenac twice daily for pain relief. If you choose to take this, do not take other qbab-apb-pjwujtg anti-inflammatories such as ibuprofen, take one or the other. You can also try applying the lidocaine patches daily. Follow up with your primary care provider in 1-2 days. Prescriptions: Lidocaine 5% Patch [Lidoderm 5% Patch] 1 patch TOPICAL DAILY PRN #30 patch PRN Reason: Pain Diclofenac Sodium [Voltaren] 75 mg PO BID PRN #20 tab PRN Reason: Pain Azithromycin [Zithromax] 250 mg PO DIRECTED 5 Days #6 tab Is patient prescribed a controlled substance at d/c from ED?: No Referrals: Chris London MD [Primary Care Provider] - 1-2 days
[2022-10-19 07:00] LABS: Basophils % (A) 0 %; Eosinophils # (A) 0.3 k/uL (0-0.7); Eosinophils % (A) 2 %; HCT 42.8 % (34.0-46.0); HGB 13.3 gm/dL (11.4-16.0); Lymphocytes # (A) 1.5 k/uL (1.0-4.8); Lymphocytes % (A) 12 %; MCHC 31.1 g/dL (31.0-37.0); MCV 90.3 fL (80.0-100.0); Mean Platelet Volume 7.1; Monocytes # (A) 0.8 k/uL (0-1.0); Monocytes % (A) 6 %; Neutrophils # (A) 10.3 k/uL (1.3-7.7); Neutrophils % (A) 79 %; Platelet Count 307 k/uL (150-450); RBC 4.73 m/uL (3.80-5.40)
[2022-10-19 07:02] LABS: Partial Thromboplastin Time 24.5 sec (22.0-30.0); Prothrombin Time 10.3 sec (9.0-12.0)
--- NOTE | 2022-10-19 07:03 | XR ---
EXAMINATION TYPE: XR chest 1V DATE OF EXAM: 10/19/2022 6:50 AM COMPARISON: Chest radiographs from 04/29/2022 TECHNIQUE: XR chest 1V Portable AP radiograph of the chest. CLINICAL INDICATION:Female, 87 years old with history of difficulty breathing; FINDINGS: Lungs/Pleura: No pleural effusion or focal consolidation. Blunting of the left costophrenic angle. Pulmonary vascularity: Unremarkable. Heart/mediastinum: Cardiomediastinal silhouette is enlarged and stable. Atherosclerotic calcificatio ns are seen in the aorta. Musculoskeletal: No acute osseous pathology. IMPRESSION: Persistent cardiomegaly with small left pleural effusion. No overt heart failure.
[2022-10-19 07:08] LABS: Potassium 3.5 mmol/L (3.5-5.1); Total Bilirubin 0.5 mg/dL (0.2-1.3); Total Protein 7.1 g/dL (6.3-8.2)
--- NOTE | 2022-10-19 07:53 | CT ---
EXAMINATION TYPE: CT abdomen pelvis w con CT DLP: 1256.5 mGycm, Automated exposure control for dose reduction was used. DATE OF EXAM: 10/19/2022 7:40 AM COMPARISON: CT abdomen and pelvis 07/01/2017 CLINICAL INDICATION:Female, 87 years old with history of Mid to lower abdominal pain and back pain; R t flank pain, history of breast CA TECHNIQUE: Standard CT of the abdomen and pelvis following the administration of 100 cc of Isovue 3 00 IV contrast material. Coronal and sagittal reformats were performed. FINDINGS: LOWER CHEST: Mildly prominent heart. No pericardial effusion. Aortic valvular calcifications. Bibasil ar subsegmental atelectasis. ABDOMEN LIVER: Unremarkable GALLBLADDER AND BILE DUCTS: Gallbladder is surgically absent with mild intrahepatic and extra hepatic biliary dilatation likely physiologic and a postcholecystectomy change. No evidence of choledocholit hiasis. PANCREAS: Unremarkable. SPLEEN: Unremarkable. ADRENAL GLANDS: Unremarkable. KIDNEYS AND URETERS: No evidence of hydronephrosis or renal calculus. The kidneys enhance symmetrical ly. PELVIS BLADDER: Under distended, limiting evaluation. REPRODUCTIVE: Unremarkable. ABDOMEN & PELVIS STOMACH AND BOWEL: Postsurgical changes at the GE junction with small hiatal hernia suggested.Pancolo oliver diverticulosis without evidence for acute diverticulitis. The appendix is not visualized however there is no significant inflammatory changes within the right lower quadrant. May be surgically absen t. No evidence of bowel obstruction. PERITONEUM: No evidence of pneumoperitoneum or free fluid. VASCULATURE: Moderate atherosclerotic calcifications are present throughout the abdominal aorta and i ts branches. No evidence of aortic aneurysm. MUSCULOSKELETAL: No acute osseous abnormalities. Moderate disc degeneration changes are present throu ghout the thoracolumbar spine. Prominent disc bulge with at least mild central canal stenosis at L3-L 4. No acute osseous abnormality. No aggressive osseous lesion. Mild levo scoliotic curvature of the l umbar spine. LYMPH NODES: No evidence for lymphadenopathy. SOFT TISSUE/ABDOMINAL WALL: Small fat filled umbilical hernia. IMPRESSION: 1. No acute abdominal/pelvic process. 2. Rankin colonic diverticulosis without evidence for acute diverticulitis.
[2022-10-19 08:45] LABS: Appearance,Urine Clear (Clear); Bilirubin,Urine Negative (Negative); Blood,Urine Negative (Negative); Color,Urine Yellow; Glucose,Urine (UA) Negative (Negative); Ketones,Urine 1+ (Negative); Leukocyte Esterase,Urine Small (Negative); Mucus,Urine Rare /hpf; Nitrite,Urine Negative (Negative); Protein,Urine 1+ (Negative); RBC,Urine 7 /hpf (0-5); Squamous Epithelial Cell,Urine 2 /hpf (0-4); WBC,Urine 3 /hpf (0-5)
[2022-10-19 09:07] LABS: Specific Gravity,Urine >1.050 (1.001-1.035)
[2022-10-19 10:08] VITALS: BP 136/72; PULSE 82; RESP 18
== END 2022-10-19 10:08 | disposition home or self-care (01) ==
LOC: EC 04:51
DX: M54.50 Low back pain, unspecified (principal); K57.30 Diverticulosis of large intestine without perforation or abscess without bleeding; J90 Pleural effusion, not elsewhere classified; I51.7 Cardiomegaly; J45.909 Unspecified asthma, uncomplicated; E11.9 Type 2 diabetes mellitus without complications; K21.9 Gastro-esophageal reflux disease without esophagitis; E78.5 Hyperlipidemia, unspecified; I10 Essential (primary) hypertension; I25.2 Old myocardial infarction; F41.9 Anxiety disorder, unspecified; Z87.891 Personal history of nicotine dependence; Z79.899 Other long term (current) drug therapy; Z88.5 Allergy status to narcotic agent; Z88.2 Allergy status to sulfonamides
CPT/HCPCS: 36415; 93005; 83880; 80053; 83605; 84484; 85025; 85610; 85730; 81001; 71045; 74177; 99284; 96374; 96375; J1885; J1170; Q9967

== ENCOUNTER → 2023-04-01 | Outpatient (CLI) | payer MEDICARE ==
--- NOTE | 2023-04-09 13:49 | MM ---
Reason for Exam: Follow-up at short interval from prior study. Last screening mammogram was performed 7 month(s) ago. Patient History: Menarche at age 13. First Full-Term at age 22. Postmenopausal. Breast cancer, left, age 86. Breast cancer, left, age 86. Currently using Tamoxifen, starting at age 86. 12/13/2021, Lumpectomy on the Left side. 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 Excisional Biopsy on the Right side. Excisional Biopsy on the Left side. Excisional Biopsy on the Left side. 10/26/2021, Malignant US breast needle core LT on the left side. 03/23/1999, Benign Excisional Biopsy on the right side. Maternal aunt had breast cancer, age 55. Prior Study Comparison: 09/04/2021 Bilateral Diagnostic Mammogram, [facility]. 10/26/2021 Left MG diagnostic mammo LT wo CAD., [facility]. 09/11/2022 Bilateral MG 3D diag mammo w/cad ABEBE, [facility]. Tissue Density: Left: There are scattered fibroglandular densities. Findings: Analyzed By CAD. Benign-appearing vascular calcifications within the left breast. Additional stable benign-appearing calcifications within the left breast. No new suspicious mass within the left breast. Postsurgical/treatment changes of the left breast redemonstrated from prior examination. Slightly improved from prior exam. Overall Assessment: Benign, BI-RAD 2 Management: Diagnostic Mammogram of both breasts in 6 months. A clinical breast exam by your physician is recommended on an annual basis and results should be correlated with mammographic findings. This exam should not preclude additional follow-up of suspicious palpable abnormalities. Results were given to the patient verbally at the time of exam. Electronically signed and approved by: Aly Neville D.O.
== END | disposition home or self-care (01) ==
LOC: RADMAMWWP 08:53
PROVIDERS: ATTEND Surgery
DX: N63.20 Unspecified lump in the left breast, unspecified quadrant (principal); Z85.3 Personal history of malignant neoplasm of breast; Z78.0 Asymptomatic menopausal state; Z80.3 Family history of malignant neoplasm of breast
CPT/HCPCS: 77065; G0279; 77061

== ENCOUNTER → 2023-10-01 | Outpatient (CLI) | payer MEDICARE ==
--- NOTE | 2023-10-01 14:01 | MM ---
Reason for Exam: Hx of breast cancer, conservation therapy. Last mammogram was performed 1 year(s) and 1 month(s) ago. Patient History: Menarche at age 13. First Full-Term at age 22. Postmenopausal. Breast cancer, left, age 86. Breast cancer, left, age 86. Currently using Tamoxifen, starting at age 86. 12/13/2021, Lumpectomy on the Left side. 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 09/24/2008, Excisional Biopsy on the Right side. 09/24/2008, Lumpectomy on the Right side. Excisional Biopsy on the Right side. Excisional Biopsy on the Left side. Excisional Biopsy on the Left side. 10/26/2021, Malignant US breast needle core LT on the left side. 03/23/1999, Benign Excisional Biopsy on the right side. Maternal aunt had breast cancer, age 55. Prior Study Comparison: 11/13/1994 Screening Mammogram, Unknown. 11/16/1995 Screening Mammogram, Unknown. 09/27/2010 Bilateral Diagnostic Mammogram, [facility]. 11/20/2012 Bilateral Screening Mammogram, [facility]. 02/26/2014 Bilateral Screening Mammogram, [facility]. 03/03/2015 Bilateral Screening Mammogram, [facility]. 04/09/2016 Bilateral Screening Mammogram, [facility]. 04/13/2016 Bilateral Diagnostic Ultrasound, [facility]. 04/10/2017 Bilateral Diagnostic Mammogram, [facility]. 04/10/2017 Left Diagnostic Ultrasound, [facility]. 09/10/2017 Left Diagnostic Ultrasound, [facility]. 09/04/2021 Bilateral Diagnostic Mammogram, [facility]. 09/04/2021 Left Diagnostic Ultrasound, [facility]. 10/26/2021 Left MG diagnostic mammo LT wo CAD., [facility]. 09/11/2022 Bilateral MG 3D diag mammo w/cad ABEBE, [facility]. 04/01/2023 Left MG 3D diag mammo w/cad LT, [facility]. Tissue Density: There are scattered areas of fibroglandular density. Findings: Analyzed By CAD. Redemonstrated fat necrosis calcifications on the right and bilateral benign vascular calcifications. Coarse calcifications are redemonstrated on both sides. Postsurgical/lumpectomy change central left breast. New calcifications along the anterior margin of the lumpectomy site, suspected developing fat necrosis calcifications on magnification views. Six-month follow-up to reassess. Otherwise, no significant change. Overall Assessment: Probably benign, BI-RAD 3 Management: Diagnostic Mammogram of the left breast in 6 months. . Results were given to the patient verbally at the time of exam. Patient should continue monthly self-breast exams. A clinical breast exam by your physician is recommended on an annual basis. This exam should not preclude additional follow-up of suspicious palpable abnormalities. Electronically signed and approved by: Driss Sherman M.D. Radiologist
== END | disposition home or self-care (01) ==
LOC: RADMAMWWP 12:49
PROVIDERS: ATTEND Family Medicine
DX: R92.323 Mammographic fibroglandular density, bilateral breasts (principal); Z78.0 Asymptomatic menopausal state; Z85.3 Personal history of malignant neoplasm of breast; Z80.3 Family history of malignant neoplasm of breast
CPT/HCPCS: 77066; G0279; 77062

== ENCOUNTER → 2024-07-13 | Outpatient (CLI) | payer MEDICARE ==
--- NOTE | 2024-07-13 15:15 | MM ---
Reason for Exam: Follow-up at short interval from prior study. Last screening mammogram was performed 9 month(s) ago. Patient History: Menarche at age 13. First Full-Term at age 22. Postmenopausal. Breast cancer, left, age 86. Breast cancer, left, age 86. Currently using Tamoxifen, starting at age 86. 12/13/2021, Lumpectomy on the Left side. 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 Excisional Biopsy on the Right side. Excisional Biopsy on the Left side. Excisional Biopsy on the Left side. 10/26/2021, Malignant US breast needle core LT on the left side. 03/23/1999, Benign Excisional Biopsy on the right side. Maternal aunt had breast cancer, age 55. Tissue Density: There are scattered areas of fibroglandular density. Findings: Analyzed By CAD. Left breast surgical clips. No new suspicious masses, calcifications or distortions. Benign appearing calcifications bilateral breasts. Overall Assessment: Benign, BI-RAD 2 Management: Screening Mammogram of both breasts in 1 year. Results were given to the patient verbally at the time of exam. Patient should continue monthly self-breast exams. A clinical breast exam by your physician is recommended on an annual basis. This exam should not preclude additional follow-up of suspicious palpable abnormalities. Note on Claudia scores and lifetime risk: 1. A Claudia score greater than 3% is considered moderate risk. If this is the case, consider specialist referral to assess eligibility for a risk reducing agent. 2. If overall lifetime risk for the development of breast cancer is 20% or higher, the patient may qualify for future screening with alternating mammogram and breast MRI. [facility], , 07/13/2024 3:12 PM. Electronically signed and approved by: Bert Crook DO
== END | disposition home or self-care (01) ==
LOC: RADMAMWWP 14:51
PROVIDERS: ATTEND Family Medicine
DX: R92.8 Other abnormal and inconclusive findings on diagnostic imaging of breast (principal); Z85.3 Personal history of malignant neoplasm of breast; Z78.0 Asymptomatic menopausal state; Z80.3 Family history of malignant neoplasm of breast; R92.323 Mammographic fibroglandular density, bilateral breasts; Z98.82 Breast implant status; R92.2 Inconclusive mammogram
CPT/HCPCS: 77066; G0279; 77062